=== PATIENT | female | born 1925 | race Caucasian/White ===

== ENCOUNTER 2016-08-19 19:21 | Inpatient (IN) | payer OTHER, BC ==
[2016-08-19] VITALS: BP 114/67; PULSE 70; TEMP 36.4; O2SAT 91; BMI 33.9
[~2016-08-19] VITALS: Ht 147.3 cm; Wt 79.4 kg
[~2016-08-19 19:21] MED LIST: AMLO10CA PO; BUME2TAB3 PO; CALCTAB7 PO; CETI10TA84 PO; CHOL100010 PO; CYAN1TAB PO; DICL1GEL12 TOP; GABA-113 PO; GUAI1TAB69 PO; HYDR-5688 PO; LORA-741 PO; MULT-845 PO; NYST100010 TOP; OMEP20CA9 PO; POLY335019 PO; POLYSOL4 OPB; POTA-327 PO; PROB1TAB16 PO; SENNTAB23 PO; SIMV5TAB2 PO; TRMCR515 TOP; WARF2TAB8 PO; WARF4TAB8 PO
[2016-08-19 19:26] VITALS: Ht 147.3 cm; Wt 79.4 kg
[2016-08-19] MEDS ORDERED: SODIUM CHLORIDE 0.9% 250ML 250 ML IV STA (20:56)
[2016-08-19] MEDS ORDERED: SODIUM CHLORIDE 0.9% 1000ML 1,000 ML IV STA (20:56)
--- NOTE | 2016-08-19 21:14 | EMERGENCY ROOM VISIT NOTE ---
History Report prepared by Jere: Nneka Cruz Under the Supervision of: Dr. Gabby Mcclain M.D. 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 The patient had blood work done this morning and was found to be hyponatremic. She was told to come to the ED for further evaluation. The patient states that she has been feeling dizzy and has had a headache. For the past 2 days her legs have been aching and she has been having difficulty ambulating. She rates her pain as a 4/10 in severity. She notes decreased urinary output today. The patient's son reports that her physician has been having trouble regulating her fluid levels. She denies any shortness of breath or chest pain. 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 Review of Systems See HPI for pertinent positives & negatives. A total of 10 systems reviewed and were otherwise negative. Past Medical & Surgical Medical Problems: (1) Acute on chronic diastolic CHF (congestive heart failure) (2) Appendectomy (3) Atrial fibrillation (4) Benign hypertension (5) C. difficile colitis (6) CHF (congestive heart failure) (7) Chronic diastolic CHF (congestive heart failure) (8) Hyponatremia (9) Hypotension arterial (10) Hysterectomy (11) Orthopedic surgery (12) Osteoarthritis (13) Replacement of total knee joint (14) Tonsillectomy (15) Total replacement of hip Family History Diabetes mellitus Social History Smoking Status: Never Smoker Alcohol Use: none Marital Status: Housing Status: lives alone Occupation Status: retired Current/Historical Medications Scheduled Amlodipine/Benazepril (Lotrel 10MG/20MG), 1 CAPSULE PO DAILY Bumetanide (Bumex), 1 TAB PO BID Calcium Carbonate-Vitamin D W/ (Caltrate 600 Plus), 1 TABLET PO DAILY Cyanocobalamin (Sm Vitamin B12), 2,000 MCG PO DAILY Diclofenac Sodium (Topical) (Voltaren 1% Top Gel), Unknown Dose TOP QID Furosemide (Furosemide), 40 MG PO UD Gabapentin (Neurontin), 300 MG PO BID Metolazone (Metolazone), 5 MG PO Q2D Multiple Vitamins W/ Minerals (Centrum Silver Adult 50+), 1 TAB PO DAILY Nystatin (Topical) (Nystop), Unknown Dose TOP TID Omeprazole (Prilosec), 20 MG PO BID Polyethylene Glycol 3350 (Miralax), 17 GM PO DAILY Polyethylene Glycol-Propylene (Systane), 1 DROP OPB HS Potassium Ext Rel (Klor-Con), 10 MEQ PO BID Probiotic Product (Probiotic), 1 TAB PO DAILY Simvastatin (Zocor), 5 MG PO QPM Triamcinolone Acet (Triamcinolone Acetonide), 1 APPLN TOP BID Warfarin Sod (Jantoven), 1 MG PO 5XWK Scheduled PRN Cetirizine (Zyrtec), 10 MG PO DAILY PRN for itchy water eyes Guaifenesin (Mucinex Maximum Strength), 600 MG PO Q12 PRN for Cough Hydrocodone/Acetaminophen 5MG/325MG ([place] 5MG/325MG), 1 TABLET PO Q6H PRN for Pain Lorazepam (Ativan), 0.5 MG PO HS PRN for Sleep Sennosides-Docusate Sodium (Stool Softener), 1 TAB PO UD PRN for Constipation Allergies Coded Allergies: Morphine (Verified Allergy, Unknown, swelling, 07/23/16) Phenobarbital (Unverified Allergy, Unknown, ITCHINESS, 07/23/16) Physical Exam Vital Signs Date Time Temp Pulse Resp B/P Pulse Ox O2 Delivery O2 Flow Rate FiO2 08/19/16 22:20 70 12 118/62 98 Room Air 08/19/16 21:09 71 08/19/16 20:53 70 18 103/55 94 Room Air 08/19/16 19:26 36.4 68 20 99/55 97 Room Air 08/19/16 00:00 36.4 70 18 114/67 91 Room Air Physical Exam Vital signs reviewed. General: Well-appearing 89 year old female, in no significant distress. HEENT: No scleral icterus, PERRLA, neck supple. Atraumatic. Cardiovascular: Distant, regular rate and rhythm, no extra sounds. Pulmonary: Clear to auscultation bilaterally, normal work of breathing. Abdomen: Soft, nontender, nondistended, positive bowel sounds. Musculoskeletal: Atraumatic, 2+ pitting edema to bilateral lower extremities. Neurologic: Patient awake alert and oriented x 3, full strength in all 4 extremities. Cranial nerves 2 through 12 grossly intact. Skin: Warm, dry, no rash Medical Decision & Procedures Laboratory Results Test 08/19/16 21:05 08/19/16 21:13 08/19/16 21:18 Immature Granulocyte % (Auto) 0.2 % White Blood Count 5.95 K/uL (4.8-10.8) Red Blood Count 3.41 M/uL (4.2-5.4) Hemoglobin 11.0 g/dL (12.0-16.0) Hematocrit 30.2 % (37-47) Mean Corpuscular Volume 88.6 fL (80-100) Mean Corpuscular Hemoglobin 32.3 pg (25-34) Mean Corpuscular Hemoglobin Concent 36.4 g/dl (32-36) Platelet Count 241 K/uL (130-400) Mean Platelet Volume 9.3 fL (7.4-10.4) Neutrophils (%) (Auto) 58.9 % Lymphocytes (%) (Auto) 21.0 % Monocytes (%) (Auto) 19.0 % Eosinophils (%) (Auto) 0.7 % Basophils (%) (Auto) 0.2 % Neutrophils # (Auto) 3.51 K/uL (1.4-6.5) Lymphocytes # (Auto) 1.25 K/uL (1.2-3.4) Monocytes # (Auto) 1.13 K/uL (0.11-0.59) Eosinophils # (Auto) 0.04 K/uL (0-0.5) Basophils # (Auto) 0.01 K/uL (0-0.2) Immature Granulocyte # (Auto) 0.01 K/uL (0.00-0.02) Total Bilirubin 0.7 mg/dl (0.2-1) Direct Bilirubin 0.3 mg/dl (0-0.2) Aspartate Amino Transf (AST/SGOT) 33 U/L (15-37) Alanine Aminotransferase (ALT/SGPT) 25 U/L (12-78) Alkaline Phosphatase 56 U/L (45-117) Total Creatine Kinase 204 U/L (26-192) Creatine Kinase MB 1.4 ng/ml (0.5-3.6) Creatine Kinase MB Ratio 0.7 (0-3.0) Total Protein 6.8 gm/dl (6.4-8.2) Albumin 3.8 gm/dl (3.4-5.0) Bedside Hemoglobin 11.6 g/dl (12.0-16.0) Bedside Hematocrit 34 % (37-47) Bedside Sodium 116 mEq/L (135-144) Bedside Potassium 2.8 mEq/L (3.3-5.0) Bedside Chloride 67 mEq/L (101-112) Bedside Total CO2 33 mEq/l (24-31) Bedside Blood Urea Nitrogen 47 mg/dl (7-18) Bedside Creatinine 1.7 mg/dl (0.6-1.3) Bedside Glucose (other) 127 mg/dl (70-99) Bedside Ionized Calcium (Liat) 1.03 mmol/l (1.12-1.32) Bedside Troponin I 0.010 ng/ml (0-0.045) Laboratory results per my review. Medications Administered Medications (Trade) Dose Ordered Sig/Naren Route Start Time Stop Time Status Last Admin Dose Admin Sodium Chloride 250 ml @ 999 mls/hr Q16M STAT IV 08/19/16 20:56 08/19/16 21:11 DC 08/19/16 20:56 999 MLS/HR Sodium Chloride (Nss 1000ml) 1,000 ml @ 125 mls/hr Q8H STAT IV 08/19/16 20:56 08/20/16 02:23 DC 08/19/16 21:27 125 MLS/HR Potassium Chloride (Kcl 10 Meq / Wtr) 20 meq NOW STAT IV 08/19/16 21:32 08/19/16 21:34 DC 08/19/16 22:13 20 MEQ Potassium Chloride (Klor-Con M10) 20 meq NOW STAT PO 08/19/16 21:32 08/19/16 21:34 DC 08/19/16 22:14 20 MEQ ECG Indication: other (dizziness) Rate (beats per minute): 70 Rhythm: other (ventricular paced rhythm) Findings: no acute ischemic change, other (QTC 552) Comparison ECG Date: 07/23/16 Change: no significant change ED Course 2046: Past medical records reviewed. The patient was evaluated in room C11B. A complete history and physical examination was performed. 2055: NSS 1000 ml @ 125 mls/hr IV, NSS 250 ml @ 999 mls/hr IV 2131: Potassium Chloride 20 meq PO, Potassium Chloride 20 meq IV 2144: I spoke with Dr. Schmid. We discussed the patients results and treatment plan. The patient will be evaluated by the [facility] for further management. 2149: I reassessed the patient at this time. She is feeling better and resting comfortably. I discussed the results and treatment plan with the patient. I answered all pertaining questions that she had. She expressed understanding and verbalized agreement. Medical Decision Differential diagnosis: Etiologies such as metabolic, infection, hypo/hyperglycemia, electrolyte abnormalities, cardiac sources, intracerebral event, toxicologic, neurologic, as well as others were entertained. This pt was evaluated and appeared to be in no distress. IV access was obtained and lab work was drawn. Pt was placed on the photographer finish. IVF were gently initiated with NSS. EKG reveals a paced rhythm. Lab work reveals a Na of 116 on iSTAT. K is 2.8. Pt was repleted with KCL 20 MEq IV and given 20 MEq po. Results were d/w with the hospitalist service for further management. Family and pt are aware of the plan and agree. Consults Time Called: 2143 Consulting Physician: Dr. Schmid Returned Call: [address] Schmid. We discussed the patients results and treatment plan. The patient will be evaluated by the [facility] for further management. Impression Primary Impression: Hyponatremia Additional Impression: Hypokalemia Scribe Attestation The scribe's documentation has been prepared under my direction and personally reviewed by me in its entirety. I confirm that the note above accurately reflects all work, treatment, procedures, and medical decision making performed by me. Departure Information Dispostion Being Evaluated By Hospitalist Referrals Lisa Carter DO (PCP) Patient Instructions A Signature Page, [facility]
[2016-08-19 21:26] LABS: ISTAT CREATININE 1.7 mg/dl (0.6-1.3); ISTAT HEMOGLOBIN 11.6 g/dl (12.0-16.0); ISTAT IONIZED CALCIUM 1.03 mmol/l (1.12-1.32)
[2016-08-19 21:26] LABS: BASO % 0.2 %; BASO ABS # 0.01 K/uL (0-0.2); COMPLETE YES; EOS % 0.7 %; HEMATOCRIT 30.2 % (37-47); IG% 0.2 %; LYMPH ABS # 1.25 K/uL (1.2-3.4); MEAN CELL VOLUME 88.6 fL (80-100); MEAN CORPUSCULAR HEMOGLOBIN 32.3 pg (25-34); MEAN CORPUSCULAR HGB CONC 36.4 g/dl (32-36); MEAN PLATELET VOLUME 9.3 fL (7.4-10.4); NEUT % 58.9 %; PLATELET COUNT 241 K/uL (130-400); RED BLOOD COUNT 3.41 M/uL (4.2-5.4); WHITE BLOOD COUNT 5.95 K/uL (4.8-10.8)
[2016-08-19] MEDS ORDERED: POTASSIUM CHLORIDE 10 MEQ / 100ML WTR IV STA (21:32)
[2016-08-19] MEDS ORDERED: POTASSIUM CHLORIDE 10 MEQ TABCR PO STA (21:32)
[2016-08-19] MEDS ORDERED: ZRX5 PO (21:57)
[2016-08-19] MEDS ORDERED: LSX40 PO (21:57)
[2016-08-19 22:03] LABS: BUN/CREATININE RATIO 38.6 (10-20); CALCIUM 9.1 mg/dl (8.5-10.1); CKMB/CK RATIO 0.7 (0-3.0); CREATININE 1.4 mg/dl (0.60-1.20); PHOSPHORUS 3.4 mg/dl (2.5-4.9); POTASSIUM 2.8 mmol/L (3.5-5.1)
[2016-08-19] MEDS ORDERED: ONDANSETRON INJ 2 MG/ML 2 ML VIAL IV PRN (22:45)
[2016-08-19] MEDS ORDERED: MAGNESIUM HYDROXIDE SUSP 30 ML UDC PO PRN (22:45)
[2016-08-19 22:48] LABS: INR 3.5 (0.9-1.1); PROTHROMBIN TIME (PATIENT) 39.9 SECONDS (9.0-12.0)
--- NOTE | 2016-08-19 23:17 | History and Physical ---
History & Physical Date & Time of Service: Aug 19, 2016 at 22:53 Chief Complaint: Doctor Ref, Abnormal Labs Primary Care Physician: Lisa Carter DO History of Present Illness Source: patient 89 y/o F with Hx AF and chronic diastolic CHF recently admitted for exacerbation. Her MD has encountered some difficulty managing her volume status as she tends to develop significant edema without a high dose of diuretics. She has had recent increases in her diuretic dosing. The pt was feeling lightheaded and weak today and was barely able to ambulate. She attended her physicians office and labs were obtained revealing severe electrolyte abnormalities including hyponatremia, hypokalemia and hypochloremia. She denies SOB, N/V/D or CP. She does describe decreased urine output without dysuria. She is currently prescribed Lasix, Metolazone, Bumex. Past Medical/Surgical History Medical Problems: (1) Chronic atrial fibrillation Status: Resolved (2) Benign hypertension Status: Chronic (3) C. difficile colitis Status: Resolved (4) Pacemaker in Situ Status: Resolved (5) Chronic diastolic CHF - Echo 07/02 reveals a preserved EF and LVH Status: Resolved (6) Osteoarthritis Status: Chronic Surgical History (1) Replacement of total knee joint Status: Resolved (2) Tonsillectomy Status: Resolved (3) Total replacement of hip Status: Resolved 4) Appendectomy 5) Tonsillectomy Family History Diabetes mellitus Social History Smoking Status: Never Smoker Alcohol Use: none Drug Use: none Marital Status: Occupational Status: retired Immunizations History of Influenza Vaccine: N/A History of Tetanus Vaccine?: Yes History of Pneumococcal: Yes Pneumococcal Date: May 28, 2012 History of Hepatitis B Vaccine: No Multi-Drug Resistant Organisms History of MDRO: No Allergies Coded Allergies: Morphine (Verified Allergy, Unknown, swelling, 07/23/16) Phenobarbital (Unverified Allergy, Unknown, ITCHINESS, 07/23/16) Home Medications Scheduled Amlodipine/Benazepril (Lotrel 10MG/20MG), 1 CAPSULE PO DAILY Bumetanide (Bumex), 1 TAB PO BID Calcium Carbonate-Vitamin D W/ (Caltrate 600 Plus), 1 TABLET PO DAILY Cyanocobalamin (Sm Vitamin B12), 2,000 MCG PO DAILY Diclofenac Sodium (Topical) (Voltaren 1% Top Gel), Unknown Dose TOP QID Furosemide (Furosemide), 40 MG PO UD Gabapentin (Neurontin), 300 MG PO BID Metolazone (Metolazone), 5 MG PO Q2D Multiple Vitamins W/ Minerals (Centrum Silver Adult 50+), 1 TAB PO DAILY Nystatin (Topical) (Nystop), Unknown Dose TOP TID Omeprazole (Prilosec), 20 MG PO BID Polyethylene Glycol 3350 (Miralax), 17 GM PO DAILY Polyethylene Glycol-Propylene (Systane), 1 DROP OPB HS Potassium Ext Rel (Klor-Con), 10 MEQ PO BID Probiotic Product (Probiotic), 1 TAB PO DAILY Simvastatin (Zocor), 5 MG PO QPM Triamcinolone Acet (Triamcinolone Acetonide), 1 APPLN TOP BID Warfarin Sod (Jantoven), 1 MG PO 5XWK Scheduled PRN Cetirizine (Zyrtec), 10 MG PO DAILY PRN for itchy water eyes Guaifenesin (Mucinex Maximum Strength), 600 MG PO Q12 PRN for Cough Hydrocodone/Acetaminophen 5MG/325MG ([place] 5MG/325MG), 1 TABLET PO Q6H PRN for Pain Lorazepam (Ativan), 0.5 MG PO HS PRN for Sleep Sennosides-Docusate Sodium (Stool Softener), 1 TAB PO UD PRN for Constipation Review of Systems Constitutional: + fatigue, + weakness, No chills, No fever, No sweats Eyes: No worsening of vision ENT: No hearing loss, No unusual epistaxis Respiratory: No cough, No sputum, No wheezing Cardiovascular: No PND, No chest pain, No orthopnea Abdomen: No nausea, No pain, No vomiting Musculoskeletal: No joint pain, No muscle pain Genitourinary - Female: + problem reported (decreased urine output) Neurologic: + balance problems, + weakness, No memory loss, No paralysis Psychiatric: No depression symptoms Endocrine: No fatigue Hematologic / Lymphatic: No abnormal bleeding/bruising Integumentary: No rash Allergic / Immunologic: No environmental allergies Physical Exam Vital Signs Date Time Temp Pulse Resp B/P Pulse Ox O2 Delivery O2 Flow Rate FiO2 08/19/16 22:20 70 12 118/62 98 Room Air 08/19/16 21:09 71 08/19/16 20:53 70 18 103/55 94 Room Air 08/19/16 19:26 36.4 68 20 99/55 97 Room Air General Appearance: WD/WN, no apparent distress, + pertinent finding (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 , 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) Head: normocephalic Eyes: normal inspection, PERRL, EOMI ENT: normal ENT inspection, pharynx normal Neck: supple, no JVD Respiratory/Chest: chest non-tender, lungs clear, normal breath sounds, no respiratory distress, no accessory muscle use Cardiovascular: regular rate, rhythm, no edema, no gallop, normal peripheral pulses Abdomen/GI: normal bowel sounds, non tender, soft Back: normal inspection, no CVA tenderness Extremities/Musculoskelatal: normal inspection, no calf tenderness, normal capillary refill, + pedal edema Neurologic/Psych: manager special events II-XII nml as tested, no motor/sensory deficits, alert, normal mood/affect, normal reflexes, oriented x 3, + pertinent finding ( Globally weak without focal deficits) Skin: normal color, warm/dry, no rash Diagnostics Laboratory Results Results Past 24 Hours Test 08/19/16 21:05 08/19/16 21:13 08/19/16 21:18 Range/Units White Blood Count 5.95 4.8-10.8 K/uL Red Blood Count 3.41 4.2-5.4 M/uL Hemoglobin 11.0 12.0-16.0 g/dL Hematocrit 30.2 37-47 % Mean Corpuscular Volume 88.6 80-100 fL Mean Corpuscular Hemoglobin 32.3 25-34 pg Mean Corpuscular Hemoglobin Concent 36.4 32-36 g/dl Platelet Count 241 130-400 K/uL Mean Platelet Volume 9.3 7.4-10.4 fL Neutrophils (%) (Auto) 58.9 % Lymphocytes (%) (Auto) 21.0 % Monocytes (%) (Auto) 19.0 % Eosinophils (%) (Auto) 0.7 % Basophils (%) (Auto) 0.2 % Neutrophils # (Auto) 3.51 1.4-6.5 K/uL Lymphocytes # (Auto) 1.25 1.2-3.4 K/uL Monocytes # (Auto) 1.13 0.11-0.59 K/uL Eosinophils # (Auto) 0.04 0-0.5 K/uL Basophils # (Auto) 0.01 0-0.2 K/uL RDW Standard Deviation 40.6 36.4-46.3 fL RDW Coefficient of Variation 12.6 11.5-14.5 % Immature Granulocyte % (Auto) 0.2 % Immature Granulocyte # (Auto) 0.01 0.00-0.02 K/uL Prothrombin Time 39.9 9.0-12.0 SECONDS Prothromb Time International Ratio 3.5 0.9-1.1 Sodium Level 118 136-145 mmol/L Potassium Level 2.8 3.5-5.1 mmol/L Chloride Level 70 98-107 mmol/L Carbon Dioxide Level 34 21-32 mmol/L Anion Gap 13.0 20.0 16-25 mmol/L Blood Urea Nitrogen 54 7-18 mg/dl Creatinine 1.40 0.60-1.20 mg/dl Est Creatinine Clear Calc Drug Dose 21.9 ml/min Estimated GFR () 38.5 Estimated GFR (Non- 33.2 BUN/Creatinine Ratio 38.6 10-20 Random Glucose 120 70-99 mg/dl Calcium Level 9.1 8.5-10.1 mg/dl Phosphorus Level 3.4 2.5-4.9 mg/dl Magnesium Level 2.0 1.8-2.4 mg/dl Total Bilirubin 0.7 0.2-1 mg/dl Direct Bilirubin 0.3 0-0.2 mg/dl Aspartate Amino Transf (AST/SGOT) 33 15-37 U/L Alanine Aminotransferase (ALT/SGPT) 25 12-78 U/L Alkaline Phosphatase 56 45-117 U/L Total Creatine Kinase 204 26-192 U/L Creatine Kinase MB 1.4 0.5-3.6 ng/ml Creatine Kinase MB Ratio 0.7 0-3.0 Total Protein 6.8 6.4-8.2 gm/dl Albumin 3.8 3.4-5.0 gm/dl Bedside Hemoglobin 11.6 12.0-16.0 g/dl Bedside Hematocrit 34 37-47 % Bedside Sodium 116 135-144 mEq/L Bedside Potassium 2.8 3.3-5.0 mEq/L Bedside Chloride 67 101-112 mEq/L Bedside Total CO2 33 24-31 mEq/l Bedside Blood Urea Nitrogen 47 7-18 mg/dl Bedside Creatinine 1.7 0.6-1.3 mg/dl Bedside Glucose (other) 127 70-99 mg/dl Bedside Ionized Calcium (Liat) 1.03 1.12-1.32 mmol/l Bedside Troponin I 0.010 0-0.045 ng/ml EKG Paced rhythm Impression Assessment and Plan 89 y/o F with Hx AF and chronic diastolic CHF recently admitted for exacerbation - has had some difficulty managing her volume status without a high dose of diuretics. She has had recent increases in her diuretic dosing - was feeling lightheaded and weak today and was barely able to ambulate - labs were obtained by her MD revealing severe electrolyte abnormalities including hyponatremia, hypokalemia and hypochloremia. 1) Electrolyte abnormalities - severe dehydration - resulting from overdiuresis - Pts initial Na = 118 and K = 2.8 - Chloride is low as well - She will be hydrated carefully as she has a tendency to volume overload - additional K has been provided - we will recheck a BMP Q2H and make rate adjustments as needed to avoid rapid correction - she will be monitored on telemetry. Pts Diuretics and ARB have been held pending AM reevaluation 2) Diastolic CHF - recent admit for exacerbation / pulmonary edema - will require volume status monitoring and continuous oximetry - Diuretics can be provided PRN only 3) HTN - will cont Norvasc - ARB held 4) AF - paced rhythm - INR pending - cont Coumadin contingent on result [place] time for this admit including chart review - review of EKG, labs, recent records - discussion with ER MD and pt 40 min DNR/DNI - on Coumadin - no additional prophylaxis VTE Prophylaxis VTE Risk Assessment Done? Y/N: Yes Risk Level: Moderate Given or contraindicated: Warfarin (Coumadin)
[2016-08-20] VITALS (8 sets, daily range): BP systolic 98–133; BP diastolic 62–74; PULSE 70–71; TEMP 36.5–36.7; O2SAT 90–100
[2016-08-20 01:18] LABS: URINE APPEARANCE CLEAR (CLEAR); URINE BILIRUBIN NEG (NEG); URINE COLOR YELLOW; URINE EPITHELIAL CELL AUTO >30 /lpf (0-5); URINE NITRITE NEG (NEG); URINE PH 5.5 (4.5-7.5); UROBILINOGEN NEG (NEG)
[2016-08-20 01:23] LABS: MANUAL MICROSCOPIC REQUIRED? NO; REVIEW REQ? YES
[2016-08-20] MEDS: HYDROCODONE/ACETAMOPHEN 5/325MG TAB PO PRN ×2 (01:24→10:40)
[2016-08-20 01:36] LABS: ZZUR CULT IF INDIC CLEAN CATCH YES
[2016-08-20] MEDS ORDERED: NSS + 20MEQ KCL 1000ML 1,000 ML IV SCH (02:30)
[2016-08-20 02:46] LABS: BUN/CREATININE RATIO 42.6 (10-20); CALCIUM 8.7 mg/dl (8.5-10.1); CREATININE 1.1 mg/dl (0.60-1.20); POTASSIUM 2.9 mmol/L (3.5-5.1)
[2016-08-20 04:32] LABS: HEMATOCRIT 26.9 % (37-47); MEAN CELL VOLUME 89.7 fL (80-100); MEAN CORPUSCULAR HEMOGLOBIN 32.3 pg (25-34); MEAN CORPUSCULAR HGB CONC 36.1 g/dl (32-36); MEAN PLATELET VOLUME 9.4 fL (7.4-10.4); PLATELET COUNT 213 K/uL (130-400); WHITE BLOOD COUNT 5.83 K/uL (4.8-10.8)
[2016-08-20 04:56] LABS: BUN/CREATININE RATIO 40.8 (10-20); CALCIUM 8.5 mg/dl (8.5-10.1); CREATININE 1.1 mg/dl (0.60-1.20); PHOSPHORUS 2.7 mg/dl (2.5-4.9)
[2016-08-20] MEDS: PANTOprazole SOD 40 MG TAB PO SCH ×2 (07:59→21:14)
[2016-08-20] MEDS: GABAPENTIN 300 MG CAP PO SCH ×2 (08:00→21:13)
[2016-08-20] MEDS: CETIRIZINE HCL 10 MG TAB PO PRN (08:00)
[2016-08-20] MEDS: TRIAMCINOLONE ACET 0.5% CR 15 GM TUBE EXT SCH ×3 (08:00→21:22)
[2016-08-20] MEDS: LACTOBACILLUS ACIDOPHILUS (FLORANEX) TAB PO SCH (08:01)
[2016-08-20] MEDS: CALCIUM 600MG + VIT D 400 IU TAB PO SCH (08:02)
[2016-08-20] MEDS: CYANOCOBALAMIN 500 MCG TAB (VIT B-12) PO SCH (08:02)
[2016-08-20] MEDS: POLYETHYLENE (MIRALAX) 17 GM PACK PO PRN (08:09)
--- NOTE | 2016-08-20 08:54 | Clinical Documentation Query ---
QUERY 1 OF [address] FITCH, In your clinical opinion is this patient being managed for: ( x ) Acute kidney failure, POA, on CKD stage III ( ) Other explanation of clinical findings (Please Explain) ( ) Unable to determine (Please Define) ( ) Need to Discuss ( ) Not Agree The medical record reflects the following clinical findings, treatment, and risk factors. Clinical Indicators: 89 yo female presenting with electrolyte abnormalities. BUN 54, Cr 1.40. Review of EMR showed most recent Cr baseline 0.78-0.94 since Jun 2016. GFR range over the past year has been 33.2-59.9 Treatment: 250 cc NSS bolus then continuous fluids, q 2 hr PRP's, nephrology consult, I/O, hold diuretics and ARB Risk Factors: age, dehydration, hx HTN and chronic diastolic CHF, recent increased diuretic doses Acute Kidney Injury is defined as any of the following: o Increase in SCr by (>/=) 0.3 mg/dl within 48 hours; or o Increase in SCr to (>/=)1.5 times baseline, which is known or presumed to have occurred within the prior 7 days; or o Urine volume <0.5 ml/kg/h for 6 hours. Chronic Kidney Disease (CKD), stages 1-5. Documenting the stage of CKD will improve data integrity and will help clarify vague terms such as "renal insufficiency" or "chronic renal failure." The stages of CKD according to the [employer] are as follows: Stage I: GFR >90 Stage II: GFR 60-89 Stage III: GFR 30-59 Stage IV: GFR 15-29 Stage V: GFR <15 QUERY 2 OF 2 In your clinical opinion is this patient being managed for: ( x ) Hyponatremia, hypokalemia, hypochloremia ( ) Other explanation of clinical findings (Please Explain) ( ) Unable to determine (Please Define) ( ) Need to Discuss ( ) Not Agree The medical record reflects the following clinical findings, treatment, and risk factors. Clinical Indicators: H/P indicates pt with electrolyte abnormalities--"initial Na =118, K = 2.8, chloride low as well" Treatment: IV fluid bolus then continuous, q 2 hr BMP's, nephrology consult, I/O, hold diuretics and ARB Risk Factors: age, recent diuretic dose increase, dehydration Please clarify and document your clinical opinion in the progress notes and discharge summary. Terms such as "probable", "suspected", "likely", "questionable", "possible", or "still to be ruled out" are acceptable. IF IN AGREEMENT, YOU MUST DOCUMENT ABOVE DIAGNOSTIC STATEMENT IN DAILY PROGRESS NOTES AND DISCHARGE SUMMARY. This document is not part of the patient's record. Thank You, Alyssa Huber RN [phone]
[2016-08-20 09:06] LABS: INR 2.8 (0.9-1.1); PROTHROMBIN TIME (PATIENT) 31.5 SECONDS (9.0-12.0)
[2016-08-20 09:50] LABS: BUN/CREATININE RATIO 41.5 (10-20); CALCIUM 9.1 mg/dl (8.5-10.1); CREATININE 1.1 mg/dl (0.60-1.20); POTASSIUM 3.1 mmol/L (3.5-5.1)
--- NOTE | 2016-08-20 11:36 | Nephrology Consultation ---
Nephrology Consultation Date & Providers Date of Consultation: Aug 20, 2016. Primary Care Provider: Lisa Carter DO Referring Provider: Reason for Consultation Evaluation of hyponatremia History of Present Illness Ms. Akhtar is an 89 year old white female who is seen at the request of Dr. Liz for evaluation of hyponatremia. Medical records in the hospital EMR were reviewed today and are summarized as follows: The patient has a history of chronic atrial fibrillation, complete heart block requiring dual chamber pacemaker 2012, moderate MR, chronic diastolic heart failure, chronic venous insufficiency, GERD, OA, C. Difficile colitis and CKD w/ baseline creatinine 1.0 (EGFR 51 cc/min). Ms. Akhtar was last hospitalized 07/23 - 07/25 with diastolic CHF. She improved with IV diuretic therapy. Echocardiogram (07/02) revealed LVEF 60%, biatrial dilation, PASP 40 - 50 mm Hg. The patient was discharged to home on oral bumetanide 2 mg po BID and metolazone 5 mg po every 2 days. Since discharge from the hospital Ms. Akhtar reports that she has experienced progressive weight loss. Her lower extremity edema has markedly improved and she has experienced brisk urine output in response to her new diuretic regimen. Over the last 2 days she has become progressively weak. She has had orthostatic symptoms and has suffered from bilateral lower extremity muscle cramping. She presented to the ED where she was found to be hyponatremic with serum sodium 119 mg/dl. Past Medical/Surgical History Medical: # Chronic atrial fibrillation # Complete heart block requiring dual chamber pacemaker 2012 # Moderate MR # Chronic diastolic heart failure # Chronic lower extremity venous insufficiency # GERD # OA # h/o clostridium difficile colitis # CKD w/ baseline creatinine 1.0 (EGFR 51 cc/min) Surgical: # Appendectomy # Hysterectomy # R KACI # R TKA # Tonsillectomy Allergies Coded Allergies: Morphine (Verified Allergy, Unknown, swelling, 07/23/16) Phenobarbital (Unverified Allergy, Unknown, ITCHINESS, 07/23/16) Inpatient Medications Current Inpatient Medications Medications (Trade) Dose Ordered Sig/Naren Route Start Time Stop Time Status Last Admin Dose Admin Potassium Chloride/Sodium Chloride (Nss + 20meq KCl 1000ml) 1,000 ml @ 100 mls/hr Q10H IV 08/20/16 02:30 08/20/16 22:29 08/20/16 03:28 100 MLS/HR Calcium/Vitamin D (Caltrate Plus Tab) 1 tab DAILY PO 08/20/16 09:00 09/19/16 08:59 08/20/16 08:02 1 TAB Cetirizine HCl (zyrTEC TAB) 10 mg DAILY PRN PO 08/19/16 22:45 09/18/16 22:44 08/20/16 08:00 10 MG Cyanocobalamin (Vitamin B-12 Tab) 2,000 mcg DAILY PO 08/20/16 09:00 09/19/16 08:59 08/20/16 08:02 2,000 MCG Gabapentin (Neurontin Cap) 300 mg BID PO 08/20/16 09:00 09/19/16 08:59 08/20/16 08:00 300 MG Acetaminophen/ Hydrocodone Bitart ([place] 5/325 Tab) 1 tab Q6H PRN PO 08/19/16 22:45 09/02/16 22:44 08/20/16 10:40 1 TAB Lorazepam (Ativan Tab) 0.5 mg HS PRN PO 08/19/16 22:45 09/18/16 22:44 Simvastatin (Zocor Tab) 5 mg QPM PO 08/20/16 21:00 09/19/16 20:59 Triamcinolone Acetonide (Kenalog 0.5% Crm) 1 appln BID EXT 08/20/16 09:00 09/19/16 08:59 08/20/16 08:00 1 APPLN Warfarin Sodium (Coumadin Tab) 1 mg SuWeThFrSa@1600 PO 08/20/16 16:00 09/19/16 15:59 Pantoprazole Sodium (Protonix Tab) 40 mg BID PO 08/20/16 09:00 09/19/16 08:59 08/20/16 07:59 40 MG Artificial Tears (Artificial Tears) 1 drops HS OPB 08/20/16 21:00 09/19/16 20:59 Lactobacillus Acidophilus (Floranex Tab) 4 tab DAILY PO 08/20/16 09:00 09/19/16 08:59 08/20/16 08:01 4 TAB Acetaminophen (Tylenol Tab) 650 mg Q4H PRN PO 08/19/16 22:45 09/18/16 22:44 Magnesium Hydroxide (Milk Of Magnesia Susp) 30 ml Q12H PRN PO 08/19/16 22:45 09/18/16 22:44 Ondansetron HCl (Zofran Inj) 4 mg Q6H PRN IV 08/19/16 22:45 09/18/16 22:44 Polyethylene (Miralax Powder Packet) 17 gm DAILY PRN PO 08/19/16 22:45 09/18/16 22:44 08/20/16 08:09 17 GM Family History Diabetes mellitus Negative for CKD/ESRD Social History Smoking Status: Never Smoker Alcohol Use: none Drug Use: none Marital Status: Occupation: retired . Retired. Never a smoker. Denies alcohol use. Review of Systems Constitutional: + fatigue, No fever Respiratory: No shortness of breath Cardiovascular: + problem reported (+ orthostasis), No chest pain Abdomen: No pain Musculoskeletal: + muscle pain (upper leg pain and weakness) A complete review of systems was performed. Pertinent positives are noted above. All other systems are negative. Physical Exam Date Time Temp Pulse Resp B/P Pulse Ox O2 Delivery O2 Flow Rate FiO2 08/20/16 08:37 36.6 70 20 102/65 90 Nasal Cannula 2.0 08/20/16 08:00 90 Nasal Cannula 2.0 08/20/16 05:13 36.5 71 18 99/62 90 Room Air 08/20/16 04:00 Room Air 08/19/16 23:40 70 16 108/55 93 08/19/16 22:20 70 12 118/62 98 Room Air 08/19/16 21:09 71 08/19/16 20:53 70 18 103/55 94 Room Air 08/19/16 19:26 36.4 68 20 99/55 97 Room Air General Appearance: no apparent distress Head: normocephalic, atraumatic Eyes: PERRL, EOMI ENT: + pertinent finding (dry mucous membranes) Neck: no adenopathy Respiratory/Chest: lungs clear, no respiratory distress Cardiovascular: + tachycardia Abdomen/GI: normal bowel sounds, non tender, soft Back: no CVA tenderness Extremities/Musculoskelatal: + pertinent finding (pretibial hemosiderin staining. 1+ pretibial pitting edema) Neurologic/Psych: alert, oriented x 3 (follows commands appropriately. No focal neurologic deficits) Skin: warm/dry, + pertinent finding (poor skin turgor involving the arms) Lymphatic: no adenopathy Laboratory Results Last 24 Hours Test 08/19/16 21:05 08/19/16 21:13 08/19/16 21:18 08/20/16 01:00 White Blood Count 5.95 K/uL Red Blood Count 3.41 M/uL Hemoglobin 11.0 g/dL Hematocrit 30.2 % Mean Corpuscular Volume 88.6 fL Mean Corpuscular Hemoglobin 32.3 pg Mean Corpuscular Hemoglobin Concent 36.4 g/dl Platelet Count 241 K/uL Mean Platelet Volume 9.3 fL Neutrophils (%) (Auto) 58.9 % Lymphocytes (%) (Auto) 21.0 % Monocytes (%) (Auto) 19.0 % Eosinophils (%) (Auto) 0.7 % Basophils (%) (Auto) 0.2 % Neutrophils # (Auto) 3.51 K/uL Lymphocytes # (Auto) 1.25 K/uL Monocytes # (Auto) 1.13 K/uL Eosinophils # (Auto) 0.04 K/uL Basophils # (Auto) 0.01 K/uL RDW Standard Deviation 40.6 fL RDW Coefficient of Variation 12.6 % Immature Granulocyte % (Auto) 0.2 % Immature Granulocyte # (Auto) 0.01 K/uL Prothrombin Time 39.9 SECONDS Prothromb Time International Ratio 3.5 Sodium Level 118 mmol/L Potassium Level 2.8 mmol/L Chloride Level 70 mmol/L Carbon Dioxide Level 34 mmol/L Anion Gap 13.0 mmol/L 20.0 mmol/L Blood Urea Nitrogen 54 mg/dl Creatinine 1.40 mg/dl Est Creatinine Clear Calc Drug Dose 21.9 ml/min Estimated GFR () 38.5 Estimated GFR (Non- 33.2 BUN/Creatinine Ratio 38.6 Random Glucose 120 mg/dl Calcium Level 9.1 mg/dl Phosphorus Level 3.4 mg/dl Magnesium Level 2.0 mg/dl Total Bilirubin 0.7 mg/dl Direct Bilirubin 0.3 mg/dl Aspartate Amino Transf (AST/SGOT) 33 U/L Alanine Aminotransferase (ALT/SGPT) 25 U/L Alkaline Phosphatase 56 U/L Total Creatine Kinase 204 U/L Creatine Kinase MB 1.4 ng/ml Creatine Kinase MB Ratio 0.7 Total Protein 6.8 gm/dl Albumin 3.8 gm/dl Bedside Hemoglobin 11.6 g/dl Bedside Hematocrit 34 % Bedside Sodium 116 mEq/L Bedside Potassium 2.8 mEq/L Bedside Chloride 67 mEq/L Bedside Total CO2 33 mEq/l Bedside Blood Urea Nitrogen 47 mg/dl Bedside Creatinine 1.7 mg/dl Bedside Glucose (other) 127 mg/dl Bedside Ionized Calcium (Liat) 1.03 mmol/l Bedside Troponin I 0.010 ng/ml Urine Color YELLOW Urine Appearance CLEAR Urine pH 5.5 Urine Specific [place] 1.010 Urine Protein NEG Urine Glucose (UA) NEG Urine Ketones NEG Urine Occult Blood NEG Urine Nitrite NEG Urine Bilirubin NEG Urine Urobilinogen NEG Urine Leukocyte Esterase TRACE Urine WBC (Auto) 10-30 /hpf Urine RBC (Auto) 0-4 /hpf Urine Hyaline Casts (Auto) 5-10 /lpf Urine Epithelial Cells (Auto) >30 /lpf Urine Bacteria (Auto) 1+ Urine Crystals TALC Test 08/20/16 02:00 08/20/16 04:21 08/20/16 08:41 Sodium Level 120 mmol/L 119 mmol/L 118 mmol/L Potassium Level 2.9 mmol/L 3.0 mmol/L 3.1 mmol/L Chloride Level 74 mmol/L 76 mmol/L 75 mmol/L Carbon Dioxide Level 33 mmol/L 31 mmol/L 32 mmol/L Anion Gap 13.0 mmol/L 12.0 mmol/L 11.0 mmol/L Blood Urea Nitrogen 47 mg/dl 45 mg/dl 46 mg/dl Creatinine 1.10 mg/dl 1.10 mg/dl 1.10 mg/dl Est Creatinine Clear Calc Drug Dose 27.9 ml/min 27.9 ml/min 27.9 ml/min Estimated GFR () 51.5 51.5 51.5 Estimated GFR (Non- 44.5 44.5 44.5 BUN/Creatinine Ratio 42.6 40.8 41.5 Random Glucose 111 mg/dl 111 mg/dl 152 mg/dl Calcium Level 8.7 mg/dl 8.5 mg/dl 9.1 mg/dl White Blood Count 5.83 K/uL Red Blood Count 3.00 M/uL Hemoglobin 9.7 g/dL Hematocrit 26.9 % Mean Corpuscular Volume 89.7 fL Mean Corpuscular Hemoglobin 32.3 pg Mean Corpuscular Hemoglobin Concent 36.1 g/dl RDW Standard Deviation 41.8 fL RDW Coefficient of Variation 12.7 % Platelet Count 213 K/uL Mean Platelet Volume 9.4 fL Phosphorus Level 2.7 mg/dl Magnesium Level 2.0 mg/dl Prothrombin Time 31.5 SECONDS Prothromb Time International Ratio 2.8 Impression (1) Hyponatremia (2) Dehydration (3) Hypotension arterial (4) Atrial fibrillation (5) Chronic diastolic CHF (congestive heart failure) (6) Generalized weakness Patient admitted to the hospital for evaluation of hyponatremia. She has chronic diastolic CHF. Recently her diuretic regimen was adjusted and she was started on a thiazide in addition to her loop diuretic. Patient has experienced a brisk diuresis. Her lower extremity edema has markedly improved but she has become progressively weak. She reports orthostasis and lower extremity muscle cramping. Serum sodium has dropped to 119 mg/dl. Urine osmolality remains relatively low. Patient is clinically volume contracted. She has hypoosmolar hyponatremia due to thiazide diuretic use and clinical dehydration. Patient has no neurologic symptoms other than weakness. PMH - chronic atrial fibrillation, complete heart block requiring dual chamber pacemaker 2012, moderate MR, chronic diastolic heart failure, chronic venous insufficiency, GERD, OA, C. Difficile colitis and CKD w/ baseline creatinine 1.0 (EGFR 51 cc/min) Recommendations HYPONATREMIA: -- Patient appears clinically volume contracted. She has relative hypotension -- Discontinue loop and thiazide diuretic -- Will ask RN to obtain orthostatic vitals -- Will order urine osmolality -- Start IV hydration w/ 0.9 NS at 150 cc/min -- Monitor serial PRP. Will check TSH -- Patient has no neurologic changes at this time. No acute indication for 3% NaCl HYPOTENSION: -- Will provide hydration DIASTOLIC CHF: -- Avoid thiazide diuretic in the future -- May benefit from BID loop diuretic therapy as outpatient once serum sodium has normalized CHRONIC KIDNEY DISEASE: -- Baseline creatinine has been 1.0 w/ EGFR 51 cc/min -- Urine sediment is acellular. Urinary protein is negative by dipstick -- Will obtain renal US only if kidney function declines
[2016-08-20] MEDS ORDERED: SODIUM CHLORIDE 0.9% 1000ML 1,000 ML IV SCH (12:00)
[2016-08-20] MEDS ORDERED: NURSING VERBAL MED ORDER ONE (12:15)
[2016-08-20] MEDS ORDERED: POTASSIUM CHLORIDE 10 MEQ TABCR PO STA ×2 (12:34→17:44)
--- NOTE | 2016-08-20 12:54 | Hospitalist Progress Note ---
Hospitalist Progress Note Date of Service Aug 20, 2016. Subjective Pt evaluation today including: conversation w/ patient, physical exam, chart review, lab review, review of studies, review of inpatient medication list PO Intake: isidoro po Pt feeling ok, is eating lunch, no CP, no SOB, says her leg swelling is much improved since taking Bumex and metolazone. Constitutional: No fever Respiratory: No shortness of breath Cardiovascular: No chest pain Abdomen: No nausea, No pain Skin: No rash All Other Systems: Reviewed and Negative Objective Vital Signs Date Time Temp Pulse Resp B/P Pulse Ox O2 Delivery O2 Flow Rate FiO2 08/20/16 08:37 36.6 70 20 102/65 90 Nasal Cannula 2.0 08/20/16 08:00 90 Nasal Cannula 2.0 08/20/16 05:13 36.5 71 18 99/62 90 Room Air 08/20/16 04:00 Room Air 08/19/16 23:40 70 16 108/55 93 08/19/16 22:20 70 12 118/62 98 Room Air 08/19/16 21:09 71 08/19/16 20:53 70 18 103/55 94 Room Air 08/19/16 19:26 36.4 68 20 99/55 97 Room Air Physical Exam General Appearance: WD/WN, no apparent distress Eyes: normal inspection, sclerae normal ENT: hearing grossly normal Neck: supple, trachea midline, + pertinent finding (small scar anterior right side of neck medial clavicle) Respiratory/Chest: no respiratory distress, no accessory muscle use, + crackles (at bases) Cardiovascular: regular rate, rhythm, no gallop, no murmur, + pertinent finding (2+ pitting edema legs to knees bilat) Abdomen: normal bowel sounds, non tender, soft (and obese) Extremities: no calf tenderness Neurologic/Psychiatric: no motor/sensory deficits, alert, normal mood/affect, oriented x 3 Skin: normal color, warm/dry, no rash Laboratory Results Last 24 Hours Test 08/19/16 21:05 08/19/16 21:13 08/19/16 21:18 08/20/16 01:00 White Blood Count 5.95 K/uL Red Blood Count 3.41 M/uL Hemoglobin 11.0 g/dL Hematocrit 30.2 % Mean Corpuscular Volume 88.6 fL Mean Corpuscular Hemoglobin 32.3 pg Mean Corpuscular Hemoglobin Concent 36.4 g/dl Platelet Count 241 K/uL Mean Platelet Volume 9.3 fL Neutrophils (%) (Auto) 58.9 % Lymphocytes (%) (Auto) 21.0 % Monocytes (%) (Auto) 19.0 % Eosinophils (%) (Auto) 0.7 % Basophils (%) (Auto) 0.2 % Neutrophils # (Auto) 3.51 K/uL Lymphocytes # (Auto) 1.25 K/uL Monocytes # (Auto) 1.13 K/uL Eosinophils # (Auto) 0.04 K/uL Basophils # (Auto) 0.01 K/uL RDW Standard Deviation 40.6 fL RDW Coefficient of Variation 12.6 % Immature Granulocyte % (Auto) 0.2 % Immature Granulocyte # (Auto) 0.01 K/uL Prothrombin Time 39.9 SECONDS Prothromb Time International Ratio 3.5 Sodium Level 118 mmol/L Potassium Level 2.8 mmol/L Chloride Level 70 mmol/L Carbon Dioxide Level 34 mmol/L Anion Gap 13.0 mmol/L 20.0 mmol/L Blood Urea Nitrogen 54 mg/dl Creatinine 1.40 mg/dl Est Creatinine Clear Calc Drug Dose 21.9 ml/min Estimated GFR () 38.5 Estimated GFR (Non- 33.2 BUN/Creatinine Ratio 38.6 Random Glucose 120 mg/dl Calcium Level 9.1 mg/dl Phosphorus Level 3.4 mg/dl Magnesium Level 2.0 mg/dl Total Bilirubin 0.7 mg/dl Direct Bilirubin 0.3 mg/dl Aspartate Amino Transf (AST/SGOT) 33 U/L Alanine Aminotransferase (ALT/SGPT) 25 U/L Alkaline Phosphatase 56 U/L Total Creatine Kinase 204 U/L Creatine Kinase MB 1.4 ng/ml Creatine Kinase MB Ratio 0.7 Total Protein 6.8 gm/dl Albumin 3.8 gm/dl Bedside Hemoglobin 11.6 g/dl Bedside Hematocrit 34 % Bedside Sodium 116 mEq/L Bedside Potassium 2.8 mEq/L Bedside Chloride 67 mEq/L Bedside Total CO2 33 mEq/l Bedside Blood Urea Nitrogen 47 mg/dl Bedside Creatinine 1.7 mg/dl Bedside Glucose (other) 127 mg/dl Bedside Ionized Calcium (Liat) 1.03 mmol/l Bedside Troponin I 0.010 ng/ml Urine Color YELLOW Urine Appearance CLEAR Urine pH 5.5 Urine Specific [place] 1.010 Urine Protein NEG Urine Glucose (UA) NEG Urine Ketones NEG Urine Occult Blood NEG Urine Nitrite NEG Urine Bilirubin NEG Urine Urobilinogen NEG Urine Leukocyte Esterase TRACE Urine WBC (Auto) 10-30 /hpf Urine RBC (Auto) 0-4 /hpf Urine Hyaline Casts (Auto) 5-10 /lpf Urine Epithelial Cells (Auto) >30 /lpf Urine Bacteria (Auto) 1+ Urine Crystals TALC Test 08/20/16 02:00 08/20/16 04:21 08/20/16 08:41 08/20/16 11:30 Sodium Level 120 mmol/L 119 mmol/L 118 mmol/L Potassium Level 2.9 mmol/L 3.0 mmol/L 3.1 mmol/L Chloride Level 74 mmol/L 76 mmol/L 75 mmol/L Carbon Dioxide Level 33 mmol/L 31 mmol/L 32 mmol/L Anion Gap 13.0 mmol/L 12.0 mmol/L 11.0 mmol/L Blood Urea Nitrogen 47 mg/dl 45 mg/dl 46 mg/dl Creatinine 1.10 mg/dl 1.10 mg/dl 1.10 mg/dl Est Creatinine Clear Calc Drug Dose 27.9 ml/min 27.9 ml/min 27.9 ml/min Estimated GFR () 51.5 51.5 51.5 Estimated GFR (Non- 44.5 44.5 44.5 BUN/Creatinine Ratio 42.6 40.8 41.5 Random Glucose 111 mg/dl 111 mg/dl 152 mg/dl Calcium Level 8.7 mg/dl 8.5 mg/dl 9.1 mg/dl White Blood Count 5.83 K/uL Red Blood Count 3.00 M/uL Hemoglobin 9.7 g/dL Hematocrit 26.9 % Mean Corpuscular Volume 89.7 fL Mean Corpuscular Hemoglobin 32.3 pg Mean Corpuscular Hemoglobin Concent 36.1 g/dl RDW Standard Deviation 41.8 fL RDW Coefficient of Variation 12.7 % Platelet Count 213 K/uL Mean Platelet Volume 9.4 fL Phosphorus Level 2.7 mg/dl Magnesium Level 2.0 mg/dl Prothrombin Time 31.5 SECONDS Prothromb Time International Ratio 2.8 Assessment and Plan 89 y/o F with Hx chronic AF, pacer in situ for complete heart block, HTN, mild , Pulm HTN, chronic diastolic CHF recently admitted for exacerbation, Sarcoidosis (1972 dxd with lymph node biopsy through thoracotomy?), GERD, OA, CKD stage IIIA, - has had some difficulty managing her volume status without a high dose of diuretics. She has had recent increases in her diuretic dosing: last week switched from lasix to bumex, then added metolazone every other day which really helped her leg swelling however she started feeling lightheaded and weak 3 days ago and was barely able to ambulate - labs were obtained by her MD on day of admission revealing severe electrolyte abnormalities including hyponatremia, hypokalemia and hypochloremia. 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 Still hypervolemic on exam but reportedly improved since last week clinically - She will be hydrated carefully as she has a tendency to volume overload -replace K+ -continue NaCl and Nephrology consulted, increased rate to 150ml/hr -f/u urine studies, checking TSH -check q4h BMPs and make rate adjustments as needed to avoid rapid correction - she will be monitored on telemetry. -Diuretics and ACEI have been held -Cardiology consult to her primary Dr. Huber 2) Chronic Diastolic CHF, Pulm HTN, Pacer in situ, h/o Sarcoidosis (cardiac sarcoid?), calcified MV, mild - recent admit for exacerbation / pulmonary edema - will require volume status monitoring and continuous oximetry - Diuretics can be provided PRN only -daily weights, I/Os -consult Cardiology as above for further management 3) HTN -holding amlodipine, ACEI 4) Chronic AF - paced rhythm - INR 3.5 on admission, now 2.8 - cont Coumadin at lower dose Proph: coumadin, PPI Dispo- DNR
[2016-08-20 16:07] LABS: BUN/CREATININE RATIO 38.1 (10-20); CALCIUM 8.7 mg/dl (8.5-10.1); CREATININE 1.2 mg/dl (0.60-1.20); POTASSIUM 3.3 mmol/L (3.5-5.1)
[2016-08-20] MEDS: WARFARIN SOD 1 MG TAB PO SCH (16:12)
[2016-08-20 16:20] LABS: THYROID STIMULATING HORMONE 2.25 uIu/ml (0.300-4.500)
[2016-08-20 19:54] LABS: BUN/CREATININE RATIO 35.9 (10-20); CALCIUM 8.4 mg/dl (8.5-10.1); CREATININE 1.3 mg/dl (0.60-1.20)
[2016-08-20] MEDS: ACETAMINOPHEN 325 MG TAB PO PRN (21:12)
[2016-08-20] MEDS: ARTIFICIAL TEARS OP SOLN OPB SCH ×2 (21:14)
[2016-08-20] MEDS: SIMVASTATIN 5 MG TAB PO SCH (21:16)
[2016-08-20] MEDS: SODIUM CHLORIDE 0.9% 1000ML 1,000 ML IV SCH (22:38)
[2016-08-21 03:10] VITALS: BP 92/59; PULSE 70; TEMP 36.3; O2SAT 98
[2016-08-21] MEDS: SODIUM CHLORIDE 0.9% 1000ML 1,000 ML IV SCH ×2 (05:11→12:47)
[2016-08-21 06:53] LABS: BASO % 0.2 %; BASO ABS # 0.01 K/uL (0-0.2); COMPLETE YES; EOS % 1.3 %; HEMATOCRIT 26.7 % (37-47); IG% 0.2 %; LYMPH % 21.3 %; LYMPH ABS # 1.02 K/uL (1.2-3.4); MEAN CELL VOLUME 90.5 fL (80-100); MEAN CORPUSCULAR HEMOGLOBIN 32.5 pg (25-34); MEAN PLATELET VOLUME 9.3 fL (7.4-10.4); PLATELET COUNT 187 K/uL (130-400); RED BLOOD COUNT 2.95 M/uL (4.2-5.4); WHITE BLOOD COUNT 4.79 K/uL (4.8-10.8)
[2016-08-21 07:02] LABS: INR 2.7 (0.9-1.1); PROTHROMBIN TIME (PATIENT) 29.6 SECONDS (9.0-12.0)
[2016-08-21 07:20] LABS: BUN/CREATININE RATIO 41.9 (10-20); CALCIUM 8.1 mg/dl (8.5-10.1); POTASSIUM 4.4 mmol/L (3.5-5.1)
[2016-08-21] MEDS: LACTOBACILLUS ACIDOPHILUS (FLORANEX) TAB PO SCH (08:16)
[2016-08-21] MEDS: GABAPENTIN 300 MG CAP PO SCH ×2 (08:16→20:23)
[2016-08-21] MEDS: CALCIUM 600MG + VIT D 400 IU TAB PO SCH (08:17)
[2016-08-21] MEDS: CYANOCOBALAMIN 500 MCG TAB (VIT B-12) PO SCH (08:17)
[2016-08-21] MEDS: PANTOprazole SOD 40 MG TAB PO SCH ×2 (08:17→20:23)
[2016-08-21 08:20] VITALS: BP 109/72; PULSE 69; TEMP 36.8; O2SAT 97
--- NOTE | 2016-08-21 09:20 | Nephrology Progress Note ---
Nephrology Progress Note Date of Service Aug 21, 2016. Chief Complaint Evaluation of hyponatremia Subjective Ms. Akhtar was seen & examined in her hospital room this morning. She was sitting up in a chair. She complains of weakness but denies dyspnea or angina. The patient has hyponatremia. She was clinically volume contracted. Serum sodium has risen 6 mmol/L over the last 24 hours. Hospitalist staff has continued 0.9 NS at 150 cc/hr overnight. Ms. Akhtar has chronic atrial fibrillation and a h/o diastolic CHF. She currently denies palpitations or angina. Review of Systems Constitutional: No fever Cardiovascular: No chest pain Respiratory: No dyspnea at rest Abdomen: No pain Extremities: + leg edema A complete review of systems was performed. Pertinent positives are noted above. All other systems are negative. Vital Signs Last 8 Hrs Date Time Temp Pulse Resp B/P Pulse Ox O2 Delivery O2 Flow Rate FiO2 08/21/16 08:20 36.8 69 18 109/72 97 Nasal Cannula 3.0 08/21/16 03:10 36.3 70 18 92/59 98 Nasal Cannula 3.0 I & O 24-Hour Column 08/21/16 08:00 Intake Total 2493 ml Output Total 850 ml Balance 1643 ml Last Recorded Weight Weight (Kilograms): 78.200 Physical Exam General Appearance: no apparent distress Head: atraumatic Eyes: PERRL, EOMI ENT: + pertinent finding (dry mucous membranes) Neck: supple, no adenopathy Respiratory/Chest: lungs clear, no respiratory distress Cardiovascular: + irregularly irregular Abdomen/GI: normal bowel sounds, non tender, soft Extremities/Musculoskelatal: no calf tenderness, + swelling (1+ pretibial pitting edema) Neurologic/Psych: alert, oriented x 3 Family History Diabetes mellitus Negative for CKD/ESRD Social History Smoking Status: Never smoker Alcohol Use: none Drug Use: none Marital Status: Occupation: retired . Retired. Never a smoker. Denies alcohol use. Laboratory Results Past 24 Hours 08/21/16 06:24 Red Blood Count 2.95, Mean Corpuscular Volume 90.5, Mean Corpuscular Hemoglobin 32.5, Mean Corpuscular Hemoglobin Concent 36.0, Mean Platelet Volume 9.3, Neutrophils (%) (Auto) 67.0, Lymphocytes (%) (Auto) 21.3, Monocytes (%) (Auto) 10.0, Eosinophils (%) (Auto) 1.3, Basophils (%) (Auto) 0.2, Neutrophils # (Auto ) 3.21, Lymphocytes # (Auto) 1.02, Monocytes # (Auto) 0.48, Eosinophils # (Auto ) 0.06, Basophils # (Auto) 0.01 08/20/16 15:15 08/20/16 19:20 08/21/16 06:42 Test 08/20/16 15:15 08/20/16 19:20 08/21/16 06:24 08/21/16 06:42 Anion Gap 11.0 mmol/L (3-11) 12.0 mmol/L (3-11) 8.0 mmol/L (3-11) Est Creatinine Clear Calc Drug Dose 27.1 ml/min 25.0 ml/min 33.6 ml/min Estimated GFR () 46.4 42.1 57.8 Estimated GFR (Non- 40.0 36.3 49.9 BUN/Creatinine Ratio 38.1 (10-20) 35.9 (10-20) 41.9 (10-20) Osmolality 259 mOsm/kg (280-300) Calcium Level 8.7 mg/dl (8.5-10.1) 8.4 mg/dl (8.5-10.1) 8.1 mg/dl (8.5-10.1) Thyroid Stimulating Hormone (TSH) 2.250 uIu/ml (0.300-4.500) White Blood Count 4.79 K/uL (4.8-10.8) Red Blood Count 2.95 M/uL (4.2-5.4) Hemoglobin 9.6 g/dL (12.0-16.0) Hematocrit 26.7 % (37-47) Mean Corpuscular Volume 90.5 fL (80-100) Mean Corpuscular Hemoglobin 32.5 pg (25-34) Mean Corpuscular Hemoglobin Concent 36.0 g/dl (32-36) Platelet Count 187 K/uL (130-400) Mean Platelet Volume 9.3 fL (7.4-10.4) Neutrophils (%) (Auto) 67.0 % Lymphocytes (%) (Auto) 21.3 % Monocytes (%) (Auto) 10.0 % Eosinophils (%) (Auto) 1.3 % Basophils (%) (Auto) 0.2 % Neutrophils # (Auto) 3.21 K/uL (1.4-6.5) Lymphocytes # (Auto) 1.02 K/uL (1.2-3.4) Monocytes # (Auto) 0.48 K/uL (0.11-0.59) Eosinophils # (Auto) 0.06 K/uL (0-0.5) Basophils # (Auto) 0.01 K/uL (0-0.2) RDW Standard Deviation 43.0 fL (36.4-46.3) RDW Coefficient of Variation 13.0 % (11.5-14.5) Immature Granulocyte % (Auto) 0.2 % Immature Granulocyte # (Auto) 0.01 K/uL (0.00-0.02) Prothrombin Time 29.6 SECONDS (9.0-12.0) Prothromb Time International Ratio 2.7 (0.9-1.1) Magnesium Level 2.0 mg/dl (1.8-2.4) Total Bilirubin 0.6 mg/dl (0.2-1) Direct Bilirubin 0.2 mg/dl (0-0.2) Aspartate Amino Transf (AST/SGOT) 33 U/L (15-37) Alanine Aminotransferase (ALT/SGPT) 25 U/L (12-78) Alkaline Phosphatase 49 U/L (45-117) Total Protein 5.4 gm/dl (6.4-8.2) Albumin 3.0 gm/dl (3.4-5.0) Test 08/21/16 08:41 Allergies Coded Allergies: Morphine (Verified Allergy, Unknown, swelling, 07/23/16) Phenobarbital (Unverified Allergy, Unknown, ITCHINESS, 07/23/16) Medications Current Inpatient Medications Medications (Trade) Dose Ordered Sig/Naren Route Start Time Stop Time Status Last Admin Dose Admin Calcium/Vitamin D (Caltrate Plus Tab) 1 tab DAILY PO 08/20/16 09:00 09/19/16 08:59 08/21/16 08:17 1 TAB Cetirizine HCl (zyrTEC TAB) 10 mg DAILY PRN PO 08/19/16 22:45 09/18/16 22:44 08/20/16 08:00 10 MG Cyanocobalamin (Vitamin B-12 Tab) 2,000 mcg DAILY PO 08/20/16 09:00 09/19/16 08:59 08/21/16 08:17 2,000 MCG Gabapentin (Neurontin Cap) 300 mg BID PO 08/20/16 09:00 09/19/16 08:59 08/21/16 08:16 300 MG Acetaminophen/ Hydrocodone Bitart ([place] 5/325 Tab) 1 tab Q6H PRN PO 08/19/16 22:45 09/02/16 22:44 08/20/16 10:40 1 TAB Lorazepam (Ativan Tab) 0.5 mg HS PRN PO 08/19/16 22:45 09/18/16 22:44 Simvastatin (Zocor Tab) 5 mg QPM PO 08/20/16 21:00 09/19/16 20:59 08/20/16 21:16 5 MG Triamcinolone Acetonide (Kenalog 0.5% Crm) 1 appln BID EXT 08/20/16 09:00 09/19/16 08:59 08/20/16 08:00 1 APPLN Warfarin Sodium (Coumadin Tab) 1 mg SuWeThFrSa@1600 PO 08/20/16 16:00 09/19/16 15:59 08/20/16 16:12 1 MG Pantoprazole Sodium (Protonix Tab) 40 mg BID PO 08/20/16 09:00 09/19/16 08:59 08/21/16 08:17 40 MG Artificial Tears (Artificial Tears) 1 drops HS OPB 08/20/16 21:00 09/19/16 20:59 08/20/16 21:14 1 DROPS Lactobacillus Acidophilus (Floranex Tab) 4 tab DAILY PO 08/20/16 09:00 09/19/16 08:59 08/21/16 08:16 4 TAB Acetaminophen (Tylenol Tab) 650 mg Q4H PRN PO 08/19/16 22:45 09/18/16 22:44 08/20/16 21:12 650 MG Magnesium Hydroxide (Milk Of Magnesia Susp) 30 ml Q12H PRN PO 08/19/16 22:45 09/18/16 22:44 Ondansetron HCl (Zofran Inj) 4 mg Q6H PRN IV 08/19/16 22:45 09/18/16 22:44 Polyethylene 17 gm 17 gm DAILY PRN PO 08/19/16 22:45 09/18/16 22:44 08/20/16 08:09 17 GM Sodium Chloride (Nss 1000ml) 1,000 ml @ 150 mls/hr Q6H40M IV 08/20/16 22:15 09/19/16 22:14 08/21/16 05:11 150 MLS/HR Impression (1) Hyponatremia (2) Dehydration (3) Hypotension arterial (4) Atrial fibrillation (5) Chronic diastolic CHF (congestive heart failure) (6) Generalized weakness Patient admitted to the hospital for evaluation of hyponatremia. She has chronic diastolic CHF. Recently her diuretic regimen was adjusted and she was started on a thiazide in addition to her loop diuretic. Patient has experienced a brisk diuresis. Her lower extremity edema has markedly improved but she has become progressively weak. She reports orthostasis and lower extremity muscle cramping. Serum sodium has dropped to 119 mg/dl. Urine osmolality remains relatively low. Patient is clinically volume contracted. She has hypoosmolar hyponatremia due to thiazide diuretic use and clinical dehydration. Patient has no neurologic symptoms other than weakness. PMH - chronic atrial fibrillation, complete heart block requiring dual chamber pacemaker 2012, moderate MR, chronic diastolic heart failure, chronic venous insufficiency, GERD, OA, C. Difficile colitis and CKD w/ baseline creatinine 1.0 (EGFR 51 cc/min) Recommendations HYPONATREMIA: -- Patient was hydrated w/ 0.9 NS overnight. Serum sodium has risen 6 mEq over the last 24 hours. -- Patient remains clinically volume contracted -- Continue to hold diuretic therapy. Recommend avoiding thiazide diuretics in this patient in the future -- Will ask RN to obtain orthostatic vitals (not yet completed) -- Continue IV hydration w/ 0.9 NS at 150 cc/min -- Monitor serial PRP -- TSH was checked and found to be within normal limits. Patient is clinically euthyroid HYPOTENSION: -- Continue gentle hydration. Will check orthostatic vital signs DIASTOLIC CHF: -- Avoid thiazide diuretic in the future -- May benefit from BID loop diuretic therapy as outpatient once serum sodium has normalized CHRONIC KIDNEY DISEASE: -- Baseline creatinine has been 1.0 w/ EGFR 51 cc/min -- Urine sediment is acellular. Urinary protein is negative by dipstick -- Will obtain renal US only if kidney function declines ANEMIA: -- Will order iron studies and FOBT
[2016-08-21 09:42] VITALS: BP 136/80; PULSE 70; O2SAT 99
[2016-08-21 09:43] VITALS: BP 156/83; PULSE 72; O2SAT 99
[2016-08-21] MEDS: HYDROCODONE/ACETAMOPHEN 5/325MG TAB PO PRN ×3 (09:58→19:30)
[2016-08-21 11:39] VITALS: BP 98/57; PULSE 70; TEMP 36.3; O2SAT 99
[2016-08-21 13:14] LABS: FERRITIN 123.6 ng/ml (8.0-388.0)
--- NOTE | 2016-08-21 13:18 | Hospitalist Progress Note ---
Hospitalist Progress Note Date of Service Aug 21, 2016. Subjective Pt evaluation today including: conversation w/ patient, physical exam, review of inpatient medication list PO Intake: isidoro po Still feeling weak. Na+ level up to 124 from 118 in 24 hrs. No SOB, no CP. Constitutional: No fever Respiratory: No shortness of breath Cardiovascular: No chest pain All Other Systems: Reviewed and Negative Objective Vital Signs Date Time Temp Pulse Resp B/P Pulse Ox O2 Delivery O2 Flow Rate FiO2 08/21/16 12:00 Nasal Cannula 2.0 08/21/16 11:39 36.3 70 20 98/57 99 Nasal Cannula 3.0 08/21/16 09:43 72 156/83 99 08/21/16 09:42 70 136/80 99 08/21/16 08:20 36.8 69 18 109/72 97 Nasal Cannula 3.0 08/21/16 08:00 Nasal Cannula 2.0 08/21/16 03:10 36.3 70 18 92/59 98 Nasal Cannula 3.0 08/21/16 00:00 Nasal Cannula 08/20/16 20:00 Nasal Cannula 2.0 08/20/16 19:57 36.5 70 20 100/65 99 Nasal Cannula 2.0 08/20/16 19:55 36.5 70 20 100/66 99 Nasal Cannula 2.0 08/20/16 16:01 Nasal Cannula 2.0 08/20/16 15:38 36.5 70 18 133/74 100 Nasal Cannula 3.0 Physical Exam General Appearance: WD/WN, no apparent distress, + obese Eyes: normal inspection, sclerae normal ENT: pharynx normal (mucus membranes moist) Neck: trachea midline Respiratory/Chest: no respiratory distress, no accessory muscle use, + crackles (mild at bases) Cardiovascular: regular rate, rhythm, no gallop, + systolic murmur (1/6 MARIANA at RUSB), + pertinent finding (2-3+ pitting edfema legs to thighs bilat) Abdomen: normal bowel sounds, non tender, soft Extremities: no calf tenderness Neurologic/Psychiatric: alert, normal mood/affect, oriented x 3 Skin: normal color, warm/dry, no rash Laboratory Results Last 24 Hours Test 08/20/16 15:15 08/20/16 19:20 08/21/16 00:00 08/21/16 06:24 Sodium Level 121 mmol/L 121 mmol/L Potassium Level 3.3 mmol/L 4.0 mmol/L Chloride Level 79 mmol/L 81 mmol/L Carbon Dioxide Level 31 mmol/L 28 mmol/L Anion Gap 11.0 mmol/L 12.0 mmol/L Blood Urea Nitrogen 46 mg/dl 47 mg/dl Creatinine 1.20 mg/dl 1.30 mg/dl Est Creatinine Clear Calc Drug Dose 27.1 ml/min 25.0 ml/min Estimated GFR () 46.4 42.1 Estimated GFR (Non- 40.0 36.3 BUN/Creatinine Ratio 38.1 35.9 Random Glucose 138 mg/dl 130 mg/dl Osmolality 259 mOsm/kg Calcium Level 8.7 mg/dl 8.4 mg/dl Thyroid Stimulating Hormone (TSH) 2.250 uIu/ml Urine Osmolality 265 mOms/kg White Blood Count 4.79 K/uL Red Blood Count 2.95 M/uL Hemoglobin 9.6 g/dL Hematocrit 26.7 % Mean Corpuscular Volume 90.5 fL Mean Corpuscular Hemoglobin 32.5 pg Mean Corpuscular Hemoglobin Concent 36.0 g/dl Platelet Count 187 K/uL Mean Platelet Volume 9.3 fL Neutrophils (%) (Auto) 67.0 % Lymphocytes (%) (Auto) 21.3 % Monocytes (%) (Auto) 10.0 % Eosinophils (%) (Auto) 1.3 % Basophils (%) (Auto) 0.2 % Neutrophils # (Auto) 3.21 K/uL Lymphocytes # (Auto) 1.02 K/uL Monocytes # (Auto) 0.48 K/uL Eosinophils # (Auto) 0.06 K/uL Basophils # (Auto) 0.01 K/uL RDW Standard Deviation 43.0 fL RDW Coefficient of Variation 13.0 % Immature Granulocyte % (Auto) 0.2 % Immature Granulocyte # (Auto) 0.01 K/uL Test 08/21/16 06:42 08/21/16 12:00 08/21/16 12:30 08/21/16 12:35 Prothrombin Time 29.6 SECONDS Prothromb Time International Ratio 2.7 Sodium Level 124 mmol/L Potassium Level 4.4 mmol/L Chloride Level 88 mmol/L Carbon Dioxide Level 28 mmol/L Anion Gap 8.0 mmol/L Blood Urea Nitrogen 42 mg/dl Creatinine 1.00 mg/dl Est Creatinine Clear Calc Drug Dose 33.6 ml/min Estimated GFR () 57.8 Estimated GFR (Non- 49.9 BUN/Creatinine Ratio 41.9 Random Glucose 100 mg/dl Calcium Level 8.1 mg/dl Magnesium Level 2.0 mg/dl Total Bilirubin 0.6 mg/dl Direct Bilirubin 0.2 mg/dl Aspartate Amino Transf (AST/SGOT) 33 U/L Alanine Aminotransferase (ALT/SGPT) 25 U/L Alkaline Phosphatase 49 U/L Total Protein 5.4 gm/dl Albumin 3.0 gm/dl Transferrin % Saturation % Assessment and Plan 89 y/o F with Hx chronic AF, pacer in situ for complete heart block, HTN, mild , Pulm HTN, chronic diastolic CHF recently admitted for exacerbation, Sarcoidosis (1972 dxd with lymph node biopsy through thoracotomy?), GERD, OA, CKD stage IIIA, - has had some difficulty managing her volume status without a high dose of diuretics. She has had recent increases in her diuretic dosing: last week switched from lasix to bumex, then added metolazone every other day which really helped her leg swelling however she started feeling lightheaded and weak 3 days ago and was barely able to ambulate - labs were obtained by her MD on day of admission revealing severe electrolyte abnormalities including hyponatremia, hypokalemia and hypochloremia. 1) Hyponatremia, hyopkalemia: secondary to diuretics , CKD stage IIIA- Pt's initial Na = 118 and K = 2.8 - Chloride is low as well.[employer] stable at 1.1. Hypoosmolar hyponatremia due to thiazide diuretic use and clinical dehydration. Still with edema and crackles on exam but volume contracted. TSH normal, Urine Osm low Na+ from 118--> 124 in 24 hrs - continue NS 150ml/hr -replace K+ prn -continue NaCl and Nephrology consulted and appreciated -no more thiazides in the future, Nephro recommends loop diuretic bid once Na+ normalizes -check q4h BMPs and make rate adjustments as needed to avoid rapid correction - she will be monitored on telemetry. -Diuretics and ACEI have been held -Cardiology consult to her primary Dr. Huber placed -PT/OT consult for weakness 2) Chronic Diastolic CHF, Pulm HTN, Pacer in situ, h/o Sarcoidosis (cardiac sarcoid?), calcified MV, mild - recent admit for exacerbation / pulmonary edema - will require volume status monitoring and continuous oximetry - Diuretics can be provided PRN only -daily weights, I/Os -consult Cardiology as above for further management -consider restarting loop diuretic bid only after Na+ normalizes 3) HTN -holding amlodipine, ACEI 4) Chronic AF - paced rhythm - INR 3.5 on admission, now 2.7 - cont Coumadin at lower dose Proph: coumadin, PPI Dispo- DNR
[2016-08-21 13:20] LABS: BUN/CREATININE RATIO 35.7 (10-20); CALCIUM 8.7 mg/dl (8.5-10.1); POTASSIUM 4.2 mmol/L (3.5-5.1)
[2016-08-21 16:00] VITALS: BP 116/73; PULSE 70; TEMP 36.4; O2SAT 98
--- NOTE | 2016-08-21 16:14 | Cardiology Consultation ---
Cardiology Consultation Date of Consultation: Aug 21, 2016. Requesting Physician: Dr. Liz Reason for Consultation: History of Diastolic Heart Failure Pt evaluation today including: conversation w/ patient, conversation w/ family , physical exam, chart review, lab review, review of studies, review of inpatient medication list History of Present Illness Mrs. Akhtar this is a very pleasant 89-year-old woman with a history persistent atrial fibrillation, status post dual chamber permanent pacemaker for complete heart block, hypertension, moderate mitral regurgitation, chronic venous insufficiency, and chronic diastolic heart failure known to me from the outpatient setting who was admitted in the setting of hyponatremia following overdiuresis Patient has had multiple recent admission for acute decompensated heart failure requiring IV diuretics most recently 1 month ago. At that time she was switched from BID lasix to bumex fluid maintenance. Since last discharge she has had gradual increase in lower extremity swelling and home recorded weights despite loop diuretics. She was started on intermittent metalozone. With thiazide had initial improvement in symptoms with brisk diuresis but then began to develop weakness, light-headedness and muscle cramps. Repeat BMP showed severe hyponatremia down to 118 and hypokalemia. Upon presentation started on normal saline fluid repletion, most recently at 150 cc/hr. With renal and hospital medicine management gradual increase in sodium now up to 124. Today patient still endorses generalized weakness but states that she is feeling somewhat better than yesterday evening. Denies significant shortness of breath. No chest pain or palpitations. Most recent cardiovascular testing includes: ECHO (06/2016): Normal LV size, mild LVH, EF 60%, biatrial dilation, normal RV size and function, mild , severe MAC with mild MR, Estimated PASP 40-50 Pacemaker check (02/2016): [employer], implanted 03/2013, DDDR at 60, upper rate 105. Thirty-one atrial high rate episodes, AFib longus greater than 23 hours. Ten ventricular high rate episodes, none sustained VT, longest 21 beats. ECHO (07/2014): Normal LV size mild LVH, EF 60-65 percent, biatrial dilation, borderline RV enlargement, normal RV systolic function, mild valvular aortic stenosis, severe MAC with moderate mitral regurgitation, [id number] TR with estimated PA pressure approximately 40-50. Pharmacologic SPECT (07/2014): Normal perfusion without infarct or ischemia, LVEF 77 percent with normal wall motion. Past Medical/Surgical History As discussed above Family History Diabetes mellitus Non-contributory Social History Smoking Status: Never Smoker History of Alcohol Use: No Lives at home with family near by Review of Systems Constitutional: No chills, No fever Respiratory: No cough, No shortness of breath, No sputum Cardiac: No chest pain Abdomen: No nausea, No pain Female : No dysuria Neurologic: No memory loss Heme: No abnormal bleeding/bruising Endo: + excessive thirst, + fatigue Skin: No rash All Other Systems: Reviewed and Negative Allergies Coded Allergies: Morphine (Verified Allergy, Unknown, swelling, 07/23/16) Phenobarbital (Unverified Allergy, Unknown, ITCHINESS, 07/23/16) Medications Current Inpatient Medications Medications (Trade) Dose Ordered Sig/Naren Route Start Time Stop Time Status Last Admin Dose Admin Calcium/Vitamin D (Caltrate Plus Tab) 1 tab DAILY PO 08/20/16 09:00 09/19/16 08:59 08/21/16 08:17 1 TAB Cetirizine HCl (zyrTEC TAB) 10 mg DAILY PRN PO 08/19/16 22:45 09/18/16 22:44 08/20/16 08:00 10 MG Cyanocobalamin (Vitamin B-12 Tab) 2,000 mcg DAILY PO 08/20/16 09:00 09/19/16 08:59 08/21/16 08:17 2,000 MCG Gabapentin (Neurontin Cap) 300 mg BID PO 08/20/16 09:00 09/19/16 08:59 08/21/16 08:16 300 MG Acetaminophen/ Hydrocodone Bitart ([place] 5/325 Tab) 1 tab Q6H PRN PO 08/19/16 22:45 09/02/16 22:44 08/21/16 13:28 1 TAB Lorazepam (Ativan Tab) 0.5 mg HS PRN PO 08/19/16 22:45 09/18/16 22:44 Simvastatin (Zocor Tab) 5 mg QPM PO 08/20/16 21:00 09/19/16 20:59 08/20/16 21:16 5 MG Triamcinolone Acetonide (Kenalog 0.5% Crm) 1 appln BID EXT 08/20/16 09:00 09/19/16 08:59 08/20/16 08:00 1 APPLN Warfarin Sodium (Coumadin Tab) 1 mg SuWeThFrSa@1600 PO 08/20/16 16:00 09/19/16 15:59 08/20/16 16:12 1 MG Pantoprazole Sodium (Protonix Tab) 40 mg BID PO 08/20/16 09:00 09/19/16 08:59 08/21/16 08:17 40 MG Artificial Tears (Artificial Tears) 1 drops HS OPB 08/20/16 21:00 09/19/16 20:59 08/20/16 21:14 1 DROPS Lactobacillus Acidophilus (Floranex Tab) 4 tab DAILY PO 08/20/16 09:00 09/19/16 08:59 08/21/16 08:16 4 TAB Acetaminophen (Tylenol Tab) 650 mg Q4H PRN PO 08/19/16 22:45 09/18/16 22:44 08/20/16 21:12 650 MG Magnesium Hydroxide (Milk Of Magnesia Susp) 30 ml Q12H PRN PO 08/19/16 22:45 09/18/16 22:44 Ondansetron HCl (Zofran Inj) 4 mg Q6H PRN IV 08/19/16 22:45 09/18/16 22:44 Polyethylene 17 gm 17 gm DAILY PRN PO 08/19/16 22:45 09/18/16 22:44 08/20/16 08:09 17 GM Sodium Chloride (Nss 1000ml) 1,000 ml @ 150 mls/hr Q6H40M IV 08/20/16 22:15 09/19/16 22:14 08/21/16 12:47 150 MLS/HR Physical Exam Vital Signs Past 12 Hours Date Time Temp Pulse Resp B/P Pulse Ox O2 Delivery O2 Flow Rate FiO2 08/21/16 12:00 Nasal Cannula 2.0 08/21/16 11:39 36.3 70 20 98/57 99 Nasal Cannula 3.0 08/21/16 09:43 72 156/83 99 08/21/16 09:42 70 136/80 99 08/21/16 08:20 36.8 69 18 109/72 97 Nasal Cannula 3.0 08/21/16 08:00 Nasal Cannula 2.0 Head: normocephalic Eyes: Pupils: PERRLA ENMT: normal ENT inspection Neck: supple Lungs: Respiratory effort: no dyspnea Auscultation: breath sounds normal, no rales/crackles Cardiovascular: Heart Auscultation: RRR, II/ MARIANA, pertinent finding (No jugular venous distention) Peripheral Pulses: Radial Pulse: normal on the left, normal on the right Dorsalis Pedis Pulse: normal on the left, normal on the right Abdomen: Bowel Sounds: normal Inspection & Palpation: soft, no tenderness, guarding & rebound Extremities: no cyanosis, no ulcers, pertinent finding (1+ lower extremity edema) Neurologic: Cranial Nerves: grossly intact Sensation: grossly intact Data Laboratory Results: Last 24 Hours Test 08/20/16 19:20 08/21/16 00:00 08/21/16 06:24 08/21/16 06:42 Sodium Level 121 mmol/L 124 mmol/L Potassium Level 4.0 mmol/L 4.4 mmol/L Chloride Level 81 mmol/L 88 mmol/L Carbon Dioxide Level 28 mmol/L 28 mmol/L Anion Gap 12.0 mmol/L 8.0 mmol/L Blood Urea Nitrogen 47 mg/dl 42 mg/dl Creatinine 1.30 mg/dl 1.00 mg/dl Est Creatinine Clear Calc Drug Dose 25.0 ml/min 33.6 ml/min Estimated GFR () 42.1 57.8 Estimated GFR (Non- 36.3 49.9 BUN/Creatinine Ratio 35.9 41.9 Random Glucose 130 mg/dl 100 mg/dl Calcium Level 8.4 mg/dl 8.1 mg/dl Urine Osmolality 265 mOms/kg White Blood Count 4.79 K/uL Red Blood Count 2.95 M/uL Hemoglobin 9.6 g/dL Hematocrit 26.7 % Mean Corpuscular Volume 90.5 fL Mean Corpuscular Hemoglobin 32.5 pg Mean Corpuscular Hemoglobin Concent 36.0 g/dl Platelet Count 187 K/uL Mean Platelet Volume 9.3 fL Neutrophils (%) (Auto) 67.0 % Lymphocytes (%) (Auto) 21.3 % Monocytes (%) (Auto) 10.0 % Eosinophils (%) (Auto) 1.3 % Basophils (%) (Auto) 0.2 % Neutrophils # (Auto) 3.21 K/uL Lymphocytes # (Auto) 1.02 K/uL Monocytes # (Auto) 0.48 K/uL Eosinophils # (Auto) 0.06 K/uL Basophils # (Auto) 0.01 K/uL RDW Standard Deviation 43.0 fL RDW Coefficient of Variation 13.0 % Immature Granulocyte % (Auto) 0.2 % Immature Granulocyte # (Auto) 0.01 K/uL Prothrombin Time 29.6 SECONDS Prothromb Time International Ratio 2.7 Magnesium Level 2.0 mg/dl Total Bilirubin 0.6 mg/dl Direct Bilirubin 0.2 mg/dl Aspartate Amino Transf (AST/SGOT) 33 U/L Alanine Aminotransferase (ALT/SGPT) 25 U/L Alkaline Phosphatase 49 U/L Total Protein 5.4 gm/dl Albumin 3.0 gm/dl Test 08/21/16 12:30 08/21/16 12:35 Iron Level 37 mcg/dl Total Iron Binding Capacity 263 mcg/dl Transferrin 207 mg/dl Transferrin % Saturation 13 % Ferritin 123.6 ng/ml Sodium Level 126 mmol/L Potassium Level 4.2 mmol/L Chloride Level 88 mmol/L Carbon Dioxide Level 27 mmol/L Anion Gap 11.0 mmol/L Blood Urea Nitrogen 36 mg/dl Creatinine 1.00 mg/dl Est Creatinine Clear Calc Drug Dose 33.6 ml/min Estimated GFR () 57.8 Estimated GFR (Non- 49.9 BUN/Creatinine Ratio 35.7 Random Glucose 110 mg/dl Calcium Level 8.7 mg/dl EKG: Ventricularly paced rhythm with underlying atrial fib/flutter Telemetry reviewed: No tachyarrhythmias Assessment & Plan 1. Hypovolemic hyponatremia 2. Hypokalemia 3. Chronic diastolic heart failure 4. Persistent atrial fib/flutter 5. post PPM for CHB 6. Hypertension Patient, electrolytes improving with IV hydration. Appreciate hospital medicine and nephrology care. No pulmonary congestion on exam, still appears hypovolemic and agree with continued IV fluids and held diuretics, antihypertensives. Continue anticoagulation Will continue to follow while in hospital. Please contact with any questions.
[2016-08-21] MEDS: WARFARIN SOD 1 MG TAB PO SCH (16:17)
[2016-08-21 16:51] LABS: BUN/CREATININE RATIO 38.1 (10-20); CALCIUM 8.3 mg/dl (8.5-10.1); CREATININE 0.97 mg/dl (0.60-1.20); POTASSIUM 4.4 mmol/L (3.5-5.1)
[2016-08-21] MEDS: ARTIFICIAL TEARS OP SOLN OPB SCH ×2 (20:22)
[2016-08-21] MEDS: TRIAMCINOLONE ACET 0.5% CR 15 GM TUBE EXT SCH (20:23)
[2016-08-21] MEDS: SIMVASTATIN 5 MG TAB PO SCH (20:23)
[2016-08-21] MEDS: ACETAMINOPHEN 325 MG TAB PO PRN (21:50)
[2016-08-22] VITALS (8 sets, daily range): BP systolic 106–138; BP diastolic 68–82; PULSE 70–84; TEMP 36.3–36.6; O2SAT 93–96
[2016-08-22] MEDS: HYDROCODONE/ACETAMOPHEN 5/325MG TAB PO PRN ×3 (01:29→19:11)
[2016-08-22 07:41] LABS: BASO % 0.2 %; BASO ABS # 0.01 K/uL (0-0.2); COMPLETE YES; EOS % 1.1 %; HEMATOCRIT 28.8 % (37-47); IG% 0.2 %; LYMPH % 16.9 %; LYMPH ABS # 1.07 K/uL (1.2-3.4); MEAN CELL VOLUME 93.5 fL (80-100); MEAN CORPUSCULAR HEMOGLOBIN 31.8 pg (25-34); MONO % 13.4 %; NEUT % 68.2 %; PLATELET COUNT 218 K/uL (130-400); RED BLOOD COUNT 3.08 M/uL (4.2-5.4); WHITE BLOOD COUNT 6.34 K/uL (4.8-10.8)
[2016-08-22] MEDS: CALCIUM 600MG + VIT D 400 IU TAB PO SCH (07:45)
[2016-08-22] MEDS: LACTOBACILLUS ACIDOPHILUS (FLORANEX) TAB PO SCH (07:46)
[2016-08-22] MEDS: GABAPENTIN 300 MG CAP PO SCH ×2 (07:46→19:21)
[2016-08-22] MEDS: CYANOCOBALAMIN 500 MCG TAB (VIT B-12) PO SCH (07:47)
[2016-08-22] MEDS: PANTOprazole SOD 40 MG TAB PO SCH ×2 (07:47→19:22)
[2016-08-22] MEDS: TRIAMCINOLONE ACET 0.5% CR 15 GM TUBE EXT SCH ×2 (07:48→19:21)
[2016-08-22 07:50] LABS: INR 2.4 (0.9-1.1); PROTHROMBIN TIME (PATIENT) 26.3 SECONDS (9.0-12.0)
[2016-08-22 08:32] LABS: BUN/CREATININE RATIO 38.7 (10-20); CALCIUM 8.7 mg/dl (8.5-10.1); CREATININE 0.95 mg/dl (0.60-1.20); POTASSIUM 4.3 mmol/L (3.5-5.1)
--- NOTE | 2016-08-22 10:36 | Nephrology Progress Note ---
Nephrology Progress Note Date of Service Aug 22, 2016. Chief Complaint Evaluation of hyponatremia Subjective Ms. Akhtar was seen & examined in her hospital room this morning. She slept poorly due to her roommate. She complains of weakness but wants to get up to a chair today. The patient has hyponatremia. She was clinically volume contracted. Serum sodium has risen 10 mmol/L over the last 48 hours. Saline infusion was stopped yesterday evening. Patient denies dyspnea at rest. She requires O2 at 2 L / min NC when ambulating. Ms. Akhtar has chronic atrial fibrillation and a h/o diastolic CHF. She currently denies palpitations or angina. Review of Systems Constitutional: No fever Cardiovascular: No chest pain Respiratory: + dyspnea on exertion Abdomen: No pain Extremities: No leg edema A complete review of systems was performed. Pertinent positives are noted above. All other systems are negative. Vital Signs Last 8 Hrs Date Time Temp Pulse Resp B/P Pulse Ox O2 Delivery O2 Flow Rate FiO2 08/22/16 08:17 36.3 75 20 138/82 93 2.0 08/22/16 04:29 36.6 70 20 107/69 96 Nasal Cannula 2.0 08/22/16 04:00 Nasal Cannula 2.0 I & O 24-Hour Column 08/22/16 08:00 Intake Total 1879 ml Output Total 950 ml Balance 929 ml Last Recorded Weight Weight (Kilograms): 78.600 Physical Exam General Appearance: no apparent distress Head: normocephalic, atraumatic Eyes: PERRL, EOMI Neck: supple, no adenopathy Respiratory/Chest: lungs clear, no respiratory distress Cardiovascular: regular rate, rhythm Abdomen/GI: normal bowel sounds, non tender, soft Extremities/Musculoskelatal: no calf tenderness, no pedal edema Neurologic/Psych: alert, oriented x 3 Family History Diabetes mellitus Negative for CKD/ESRD Social History Smoking Status: Never smoker Alcohol Use: none Drug Use: none Marital Status: Occupation: retired . Retired. Never a smoker. Denies alcohol use. Laboratory Results Past 24 Hours 08/22/16 07:04 Red Blood Count 3.08, Mean Corpuscular Volume 93.5, Mean Corpuscular Hemoglobin 31.8, Mean Corpuscular Hemoglobin Concent 34.0, Mean Platelet Volume 10.0, Neutrophils (%) (Auto) 68.2, Lymphocytes (%) (Auto) 16.9, Monocytes (%) (Auto) 13.4, Eosinophils (%) (Auto) 1.1, Basophils (%) (Auto) 0.2, Neutrophils # (Auto ) 4.33, Lymphocytes # (Auto) 1.07, Monocytes # (Auto) 0.85, Eosinophils # (Auto ) 0.07, Basophils # (Auto) 0.01 08/21/16 12:35 08/21/16 16:20 08/22/16 07:04 Test 08/21/16 12:30 08/21/16 12:35 08/21/16 16:20 08/22/16 07:04 Iron Level 37 mcg/dl (35-150) Total Iron Binding Capacity 263 mcg/dl (250-450) Transferrin 207 mg/dl (200-360) Transferrin % Saturation 13 % (15-50) Ferritin 123.6 ng/ml (8.0-388.0) Anion Gap 11.0 mmol/L (3-11) 10.0 mmol/L (3-11) 9.0 mmol/L (3-11) Est Creatinine Clear Calc Drug Dose 33.6 ml/min 34.6 ml/min 35.5 ml/min Estimated GFR () 57.8 60.0 61.5 Estimated GFR (Non- 49.9 51.8 53.1 BUN/Creatinine Ratio 35.7 (10-20) 38.1 (10-20) 38.7 (10-20) Calcium Level 8.7 mg/dl (8.5-10.1) 8.3 mg/dl (8.5-10.1) 8.7 mg/dl (8.5-10.1) White Blood Count 6.34 K/uL (4.8-10.8) Red Blood Count 3.08 M/uL (4.2-5.4) Hemoglobin 9.8 g/dL (12.0-16.0) Hematocrit 28.8 % (37-47) Mean Corpuscular Volume 93.5 fL (80-100) Mean Corpuscular Hemoglobin 31.8 pg (25-34) Mean Corpuscular Hemoglobin Concent 34.0 g/dl (32-36) Platelet Count 218 K/uL (130-400) Mean Platelet Volume 10.0 fL (7.4-10.4) Neutrophils (%) (Auto) 68.2 % Lymphocytes (%) (Auto) 16.9 % Monocytes (%) (Auto) 13.4 % Eosinophils (%) (Auto) 1.1 % Basophils (%) (Auto) 0.2 % Neutrophils # (Auto) 4.33 K/uL (1.4-6.5) Lymphocytes # (Auto) 1.07 K/uL (1.2-3.4) Monocytes # (Auto) 0.85 K/uL (0.11-0.59) Eosinophils # (Auto) 0.07 K/uL (0-0.5) Basophils # (Auto) 0.01 K/uL (0-0.2) RDW Standard Deviation 46.5 fL (36.4-46.3) RDW Coefficient of Variation 13.5 % (11.5-14.5) Immature Granulocyte % (Auto) 0.2 % Immature Granulocyte # (Auto) 0.01 K/uL (0.00-0.02) Prothrombin Time 26.3 SECONDS (9.0-12.0) Prothromb Time International Ratio 2.4 (0.9-1.1) Allergies Coded Allergies: Morphine (Verified Allergy, Unknown, swelling, 07/23/16) Phenobarbital (Unverified Allergy, Unknown, ITCHINESS, 07/23/16) Medications Current Inpatient Medications Medications (Trade) Dose Ordered Sig/Naren Route Start Time Stop Time Status Last Admin Dose Admin Calcium/Vitamin D (Caltrate Plus Tab) 1 tab DAILY PO 08/20/16 09:00 09/19/16 08:59 08/22/16 07:45 1 TAB Cetirizine HCl (zyrTEC TAB) 10 mg DAILY PRN PO 08/19/16 22:45 09/18/16 22:44 08/20/16 08:00 10 MG Cyanocobalamin (Vitamin B-12 Tab) 2,000 mcg DAILY PO 08/20/16 09:00 09/19/16 08:59 08/22/16 07:47 2,000 MCG Gabapentin (Neurontin Cap) 300 mg BID PO 08/20/16 09:00 09/19/16 08:59 08/22/16 07:46 300 MG Acetaminophen/ Hydrocodone Bitart ([place] 5/325 Tab) 1 tab Q6H PRN PO 08/19/16 22:45 09/02/16 22:44 08/22/16 09:57 1 TAB Lorazepam (Ativan Tab) 0.5 mg HS PRN PO 08/19/16 22:45 09/18/16 22:44 Simvastatin (Zocor Tab) 5 mg QPM PO 08/20/16 21:00 09/19/16 20:59 08/21/16 20:23 5 MG Triamcinolone Acetonide (Kenalog 0.5% Crm) 1 appln BID EXT 08/20/16 09:00 09/19/16 08:59 08/22/16 07:48 1 APPLN Warfarin Sodium (Coumadin Tab) 1 mg SuWeThFrSa@1600 PO 08/20/16 16:00 09/19/16 15:59 08/21/16 16:17 1 MG Pantoprazole Sodium (Protonix Tab) 40 mg BID PO 08/20/16 09:00 09/19/16 08:59 08/22/16 07:47 40 MG Artificial Tears (Artificial Tears) 1 drops HS OPB 08/20/16 21:00 09/19/16 20:59 08/21/16 20:22 1 DROPS Lactobacillus Acidophilus (Floranex Tab) 4 tab DAILY PO 08/20/16 09:00 09/19/16 08:59 08/22/16 07:46 4 TAB Acetaminophen (Tylenol Tab) 650 mg Q4H PRN PO 08/19/16 22:45 09/18/16 22:44 08/21/16 21:50 650 MG Magnesium Hydroxide (Milk Of Magnesia Susp) 30 ml Q12H PRN PO 08/19/16 22:45 09/18/16 22:44 Ondansetron HCl (Zofran Inj) 4 mg Q6H PRN IV 08/19/16 22:45 09/18/16 22:44 Polyethylene (Miralax Powder Packet) 17 gm DAILY PRN PO 08/19/16 22:45 09/18/16 22:44 08/20/16 08:09 17 GM Impression (1) Hyponatremia (2) Dehydration (3) Hypotension arterial (4) Atrial fibrillation (5) Chronic diastolic CHF (congestive heart failure) (6) Generalized weakness Patient admitted to the hospital for evaluation of hyponatremia. She has chronic diastolic CHF. Recently her diuretic regimen was adjusted and she was started on a thiazide in addition to her loop diuretic. Patient has experienced a brisk diuresis. Her lower extremity edema has markedly improved but she has become progressively weak. She reports orthostasis and lower extremity muscle cramping. Serum sodium has dropped to 119 mg/dl. Urine osmolality remains relatively low. Patient is clinically volume contracted. She has hypoosmolar hyponatremia due to thiazide diuretic use and clinical dehydration. Patient has no neurologic symptoms other than weakness. PMH - chronic atrial fibrillation, complete heart block requiring dual chamber pacemaker 2012, moderate MR, chronic diastolic heart failure, chronic venous insufficiency, GERD, OA, C. Difficile colitis and CKD w/ baseline creatinine 1.0 (EGFR 51 cc/min) Recommendations HYPONATREMIA: -- Serum sodium has risen 10 mEq over the last 48 hours. -- Patient appears euvolemic. Saline infusion was discontinued yesterday evening -- Will provide oral NaCl today and one dose of furosemide -- Monitor serial PRP -- TSH was checked and found to be within normal limits. Patient is clinically euthyroid HYPOTENSION: -- Resolved. Patient is now clinically euvolemic DIASTOLIC CHF: -- Avoid thiazide diuretic in the future -- May benefit from BID loop diuretic therapy as outpatient once serum sodium has normalized CHRONIC KIDNEY DISEASE: -- Baseline creatinine has been 1.0 w/ EGFR 51 cc/min -- Urine sediment is acellular. Urinary protein is negative by dipstick -- Will obtain renal US only if kidney function declines ANEMIA: -- Awaiting FOBT -- Iron stores are low -- Will start IV iron
[2016-08-22] MEDS ORDERED: BUMETANIDE 1 MG TAB PO ONE (10:37)
[2016-08-22] MEDS ORDERED: SODIUM CHLORIDE 1 GM TAB PO ONE (11:00)
--- NOTE | 2016-08-22 11:10 | Cardiology Follow-Up ---
Subjective Date of Service: Aug 22, 2016. Pt evaluation today including: conversation w/ patient, physical exam, chart review, lab review, review of studies, review of inpatient medication list History of Present Illness Mrs. Akhtar is currently resting comfortably in bed. She reports that she is very tired since she did not sleep well last night due to her roommate. She still feels very weak, but she feels as though she is gradually improving. She denies chest pain or other anginal type symptoms. She notes exertional dyspnea, which has been stable in nature. She denies shortness of breath at rest or orthopnea. She denies lightheadedness, dizziness, or presyncope. Social History Smoking Status: Never Smoker History of Alcohol Use: No Review of Systems Respiratory: No cough, No shortness of breath, No sputum Cardiac: No chest pain Objective Vital Signs Past 12 Hours Date Time Temp Pulse Resp B/P Pulse Ox O2 Delivery O2 Flow Rate FiO2 08/22/16 08:17 36.3 75 20 138/82 93 2.0 08/22/16 04:29 36.6 70 20 107/69 96 Nasal Cannula 2.0 08/22/16 04:00 Nasal Cannula 2.0 08/22/16 00:23 36.6 70 20 106/68 95 Nasal Cannula 2.0 08/22/16 00:00 Nasal Cannula 2.0 Last Recorded Weight-Kilograms: 78.600 Intake & Output 8-Hour Column 08/21/16 08/22/16 08/22/16 16:00 00:00 08:00 Intake Total 1579 ml 300 ml Output Total 50 ml 650 ml 250 ml Balance 1529 ml -350 ml -250 ml 24-Hour Column 08/22/16 08:00 Intake Total 1879 ml Output Total 950 ml Balance 929 ml Physical Exam Extremities: pertinent finding (1+ lower extremity edema) Constitutional: Alert, oriented, in no acute distress HEENT: Head is atraumatic and normocephalic. EOMs intact. Sclera anicteric. Face is symmetric. No perioral cyanosis. Mucous membranes moist. Neck: Supple, no JVD, no carotid bruits Pulmonary: Normal respiratory effort, clear to auscultation bilaterally Cardiac: Regular rate and rhythm, normal S1 and S2, no gallops, no rubs, 2/6 basal systolic ejection murmur Extremities: Trace lower extremity edema bilaterally. No clubbing or cyanosis. Pulses intact Abdomen: Normal bowel sounds, soft, non-tender, no abdominal mass palpated Skin: Normal skin color, turgor, and pigmentation, no rash, no skin lesions Neurological: Oriented to person, place, and time Data Laboratory Results: Last 24 Hours Test 08/21/16 12:30 08/21/16 12:35 08/21/16 16:20 08/22/16 07:04 Iron Level 37 mcg/dl Total Iron Binding Capacity 263 mcg/dl Transferrin 207 mg/dl Transferrin % Saturation 13 % Ferritin 123.6 ng/ml Sodium Level 126 mmol/L 126 mmol/L 127 mmol/L Potassium Level 4.2 mmol/L 4.4 mmol/L 4.3 mmol/L Chloride Level 88 mmol/L 89 mmol/L 92 mmol/L Carbon Dioxide Level 27 mmol/L 27 mmol/L 26 mmol/L Anion Gap 11.0 mmol/L 10.0 mmol/L 9.0 mmol/L Blood Urea Nitrogen 36 mg/dl 37 mg/dl 37 mg/dl Creatinine 1.00 mg/dl 0.97 mg/dl 0.95 mg/dl Est Creatinine Clear Calc Drug Dose 33.6 ml/min 34.6 ml/min 35.5 ml/min Estimated GFR () 57.8 60.0 61.5 Estimated GFR (Non- 49.9 51.8 53.1 BUN/Creatinine Ratio 35.7 38.1 38.7 Random Glucose 110 mg/dl 113 mg/dl 95 mg/dl Calcium Level 8.7 mg/dl 8.3 mg/dl 8.7 mg/dl White Blood Count 6.34 K/uL Red Blood Count 3.08 M/uL Hemoglobin 9.8 g/dL Hematocrit 28.8 % Mean Corpuscular Volume 93.5 fL Mean Corpuscular Hemoglobin 31.8 pg Mean Corpuscular Hemoglobin Concent 34.0 g/dl Platelet Count 218 K/uL Mean Platelet Volume 10.0 fL Neutrophils (%) (Auto) 68.2 % Lymphocytes (%) (Auto) 16.9 % Monocytes (%) (Auto) 13.4 % Eosinophils (%) (Auto) 1.1 % Basophils (%) (Auto) 0.2 % Neutrophils # (Auto) 4.33 K/uL Lymphocytes # (Auto) 1.07 K/uL Monocytes # (Auto) 0.85 K/uL Eosinophils # (Auto) 0.07 K/uL Basophils # (Auto) 0.01 K/uL RDW Standard Deviation 46.5 fL RDW Coefficient of Variation 13.5 % Immature Granulocyte % (Auto) 0.2 % Immature Granulocyte # (Auto) 0.01 K/uL Prothrombin Time 26.3 SECONDS Prothromb Time International Ratio 2.4 Telemetry reviewed: Paced rhythm. No tachyarrhythmias Assessment and Plan 1. Hypovolemic hyponatremia- Improved to 127. IV hydration discontinued last evening. Oral NaCl to be given today per Nephrology. 2. Hypokalemia- resolved 3. Chronic diastolic heart failure- She appears euvolemic currently, but would be careful with monitoring of her volume status as she has recently struggled with acute on chronic diastolic CHF. Recommend resuming PO Loop diuretic BID once her serum sodium stabilizes. Continue to monitor I&O and PRP. 4. Persistent atrial fib/flutter- She is currently paced. Continue anticoagulation therapy. 5. post PPM for CHB 6. Hypertension- BP well controlled currently.
[2016-08-22] MEDS: IRON SUCROSE INJ 100 MG in SODIUM CHLORIDE 0.9% 100ML 100 ML IV SCH (11:32)
[2016-08-22] MEDS: ACETAMINOPHEN 325 MG TAB PO PRN (14:16)
[2016-08-22 16:36] LABS: BUN/CREATININE RATIO 33.6 (10-20); CALCIUM 8.8 mg/dl (8.5-10.1); POTASSIUM 3.9 mmol/L (3.5-5.1)
--- NOTE | 2016-08-22 16:49 | Hospitalist Progress Note ---
Hospitalist Progress Note Date of Service Aug 22, 2016. Subjective Pt evaluation today including: conversation w/ patient, physical exam, chart review, lab review, review of studies, review of inpatient medication list Voiding: no voiding problems Did not sleep well at all last night due to her roommate. Feeling a little stronger today but very tired. Na+ up to 127 this afternoon then 126 just now. IVFs stopped yesterday and on NaCl tabs and received lasix today as per Nephro Constitutional: No fever Respiratory: + dyspnea on exertion Cardiovascular: No chest pain Abdomen: No pain Endo: + fatigue All Other Systems: Reviewed and Negative Objective Vital Signs Date Time Temp Pulse Resp B/P Pulse Ox O2 Delivery O2 Flow Rate FiO2 08/22/16 15:14 36.3 70 20 115/69 96 08/22/16 12:49 36.3 84 20 118/74 96 2.0 08/22/16 12:00 Nasal Cannula 2.0 08/22/16 08:17 36.3 75 20 138/82 93 2.0 08/22/16 08:00 Nasal Cannula 2.0 08/22/16 04:29 36.6 70 20 107/69 96 Nasal Cannula 2.0 08/22/16 04:00 Nasal Cannula 2.0 08/22/16 00:23 36.6 70 20 106/68 95 Nasal Cannula 2.0 08/22/16 00:00 Nasal Cannula 2.0 08/21/16 19:25 Nasal Cannula 2.0 Physical Exam General Appearance: WD/WN, no apparent distress Eyes: normal inspection, sclerae normal ENT: hearing grossly normal Neck: trachea midline Respiratory/Chest: normal breath sounds, no respiratory distress, no accessory muscle use, + crackles (mild at bases) Cardiovascular: regular rate, rhythm, no murmur, + pertinent finding (2+ pitting edema legs to knees bilat) Abdomen: normal bowel sounds, non tender, soft Extremities: non-tender, no calf tenderness (with AUDI hose on) Neurologic/Psychiatric: alert, normal mood/affect, oriented x 3 Skin: normal color, warm/dry, no rash Laboratory Results Last 24 Hours Test 08/22/16 07:04 08/22/16 15:55 08/22/16 16:29 White Blood Count 6.34 K/uL Red Blood Count 3.08 M/uL Hemoglobin 9.8 g/dL Hematocrit 28.8 % Mean Corpuscular Volume 93.5 fL Mean Corpuscular Hemoglobin 31.8 pg Mean Corpuscular Hemoglobin Concent 34.0 g/dl Platelet Count 218 K/uL Mean Platelet Volume 10.0 fL Neutrophils (%) (Auto) 68.2 % Lymphocytes (%) (Auto) 16.9 % Monocytes (%) (Auto) 13.4 % Eosinophils (%) (Auto) 1.1 % Basophils (%) (Auto) 0.2 % Neutrophils # (Auto) 4.33 K/uL Lymphocytes # (Auto) 1.07 K/uL Monocytes # (Auto) 0.85 K/uL Eosinophils # (Auto) 0.07 K/uL Basophils # (Auto) 0.01 K/uL RDW Standard Deviation 46.5 fL RDW Coefficient of Variation 13.5 % Immature Granulocyte % (Auto) 0.2 % Immature Granulocyte # (Auto) 0.01 K/uL Prothrombin Time 26.3 SECONDS Prothromb Time International Ratio 2.4 Sodium Level 127 mmol/L 126 mmol/L Potassium Level 4.3 mmol/L 3.9 mmol/L Chloride Level 92 mmol/L 91 mmol/L Carbon Dioxide Level 26 mmol/L 28 mmol/L Anion Gap 9.0 mmol/L 7.0 mmol/L Blood Urea Nitrogen 37 mg/dl 34 mg/dl Creatinine 0.95 mg/dl 1.00 mg/dl Est Creatinine Clear Calc Drug Dose 35.5 ml/min 33.7 ml/min Estimated GFR () 61.5 57.8 Estimated GFR (Non- 53.1 49.9 BUN/Creatinine Ratio 38.7 33.6 Random Glucose 95 mg/dl 114 mg/dl Calcium Level 8.7 mg/dl 8.8 mg/dl Assessment and Plan 89 y/o F with Hx chronic AF, pacer in situ for complete heart block, HTN, mild , Pulm HTN, chronic diastolic CHF recently admitted for exacerbation, Sarcoidosis (1972 dxd with lymph node biopsy through thoracotomy?), GERD, OA, CKD stage IIIA, - has had some difficulty managing her volume status without a high dose of diuretics. She has had recent increases in her diuretic dosing: last week switched from lasix to bumex, then added metolazone every other day which really helped her leg swelling however she started feeling lightheaded and weak 3 days ago and was barely able to ambulate - labs were obtained by her MD on day of admission revealing severe electrolyte abnormalities including hyponatremia, hypokalemia and hypochloremia. 1) Hyponatremia, hyopkalemia: secondary to diuretics , CKD stage IIIA- Pt's initial Na = 118 and K = 2.8 - Chloride is low as well.Spring Maker stable at 1.0 Hypoosmolar hyponatremia due to thiazide diuretic use and clinical dehydration. Still with edema and crackles on exam but volume contracted. TSH normal, Urine Osm low Na+ from 118--> 124 in 24 hrs--> 127 in 48 hrs -received NS 150ml/hr x 2 days then stopped -now on NaCl tabs 2 grams bid -started Bumex 1 mg daily on 08/22 -replace K+ prn - Nephrology consulted and appreciated -no more thiazides in the future, Nephro recommends loop diuretic bid eventually once Na+ normalizes -PRP q12 - she will be monitored on telemetry. - ACEI have been held -Cardiology consult to her primary Dr. Huber placed and appreciated -PT/OT consult for weakness-pt too tired to participate today 2) Chronic Diastolic CHF, Pulm HTN, Pacer in situ, h/o Sarcoidosis (cardiac sarcoid?), calcified MV, mild - recent admit for exacerbation / pulmonary edema - will require volume status monitoring and continuous oximetry - Bumex restarted today 1mg daily -daily weights, I/Os -consult Cardiology as above for further management -remains in paced rhythm 3) HTN -stopped amlodipine, ACEI 4) Chronic AF - paced rhythm - INR 3.5 on admission, now 2.7 - cont Coumadin at lower dose Proph: coumadin, PPI Dispo- DNR
[2016-08-22] MEDS: WARFARIN SOD 1 MG TAB PO SCH (17:05)
[2016-08-22] MEDS: CEFTRIAXONE SOD INJ 1 GM in DEXTROSE 5% ADD-VANTAGE 50ML 50 ML IV SCH (17:54)
[2016-08-22] MEDS: ARTIFICIAL TEARS OP SOLN OPB SCH ×2 (19:21)
[2016-08-22] MEDS: SODIUM CHLORIDE 1 GM TAB PO SCH (19:22)
[2016-08-22] MEDS: SIMVASTATIN 5 MG TAB PO SCH (19:22)
[2016-08-23] VITALS (8 sets, daily range): BP systolic 111–135; BP diastolic 64–82; PULSE 60–71; TEMP 36.2–36.7; O2SAT 92–96
[2016-08-23 06:31] LABS: BASO % 0.5 %; BASO ABS # 0.03 K/uL (0-0.2); COMPLETE YES; EOS % 1.1 %; HEMATOCRIT 26.9 % (37-47); IG% 0.2 %; LYMPH ABS # 1.27 K/uL (1.2-3.4); MEAN CELL VOLUME 93.1 fL (80-100); MEAN CORPUSCULAR HEMOGLOBIN 32.5 pg (25-34); MEAN CORPUSCULAR HGB CONC 34.9 g/dl (32-36); MEAN PLATELET VOLUME 9.8 fL (7.4-10.4); MONO % 11.6 %; NEUT % 63.6 %; PLATELET COUNT 207 K/uL (130-400); RED BLOOD COUNT 2.89 M/uL (4.2-5.4); WHITE BLOOD COUNT 5.53 K/uL (4.8-10.8)
[2016-08-23 06:37] LABS: PROTHROMBIN TIME (PATIENT) 22.3 SECONDS (9.0-12.0)
[2016-08-23 07:02] LABS: BUN/CREATININE RATIO 33.8 (10-20); CALCIUM 8.8 mg/dl (8.5-10.1); CREATININE 0.94 mg/dl (0.60-1.20); MAGNESIUM 1.9 mg/dl (1.8-2.4); POTASSIUM 3.9 mmol/L (3.5-5.1)
[2016-08-23] MEDS ORDERED: POTASSIUM CHLORIDE 10 MEQ TABCR PO STA (07:22)
[2016-08-23] MEDS ORDERED: MAGNESIUM SULFATE 1GM / D5W 1 GM in PREMIXED IN D5W 100 ML IV SCH (08:00)
[2016-08-23] MEDS: CALCIUM 600MG + VIT D 400 IU TAB PO SCH (08:47)
[2016-08-23] MEDS: LACTOBACILLUS ACIDOPHILUS (FLORANEX) TAB PO SCH (08:48)
[2016-08-23] MEDS: GABAPENTIN 300 MG CAP PO SCH ×2 (08:48→20:46)
[2016-08-23] MEDS: CYANOCOBALAMIN 500 MCG TAB (VIT B-12) PO SCH (08:48)
[2016-08-23] MEDS: TRIAMCINOLONE ACET 0.5% CR 15 GM TUBE EXT SCH ×2 (08:49→21:00)
[2016-08-23] MEDS ORDERED: SODIUM CHLORIDE 1 GM TAB PO ONE (08:53)
[2016-08-23] MEDS: PANTOprazole SOD 40 MG TAB PO SCH ×2 (09:00→20:45)
[2016-08-23] MEDS: BUMETANIDE 1 MG TAB PO SCH ×2 (09:00→17:05)
[2016-08-23] MEDS ORDERED: BUMETANIDE 1 MG TAB PO SCH (09:00)
--- NOTE | 2016-08-23 09:06 | Nephrology Progress Note ---
Nephrology Progress Note Date of Service Aug 23, 2016. Chief Complaint Evaluation of hyponatremia Subjective Ms. Akhtar was seen & examined in her hospital room this morning. She complains of weakness and feels that her lower extremity swelling is worse. The patient has hyponatremia. She was clinically volume contracted upon admission. She has been rehydrated and is now euvolemic. Serum sodium has almost fully corrected. Ms. Akhtar has chronic atrial fibrillation and a h/o diastolic CHF. She currently denies palpitations or angina. Review of Systems Constitutional: No fever Cardiovascular: No chest pain Respiratory: No dyspnea at rest Abdomen: No pain Extremities: + leg edema A complete review of systems was performed. Pertinent positives are noted above. All other systems are negative. Vital Signs Last 8 Hrs Date Time Temp Pulse Resp B/P Pulse Ox O2 Delivery O2 Flow Rate FiO2 08/23/16 07:47 36.5 70 20 115/72 93 Nasal Cannula 3.0 08/23/16 04:54 36.6 70 20 115/70 94 Nasal Cannula 2.0 08/23/16 04:00 Nasal Cannula 2.0 08/23/16 01:37 36.6 70 20 124/73 92 Nasal Cannula 2.0 I & O 24-Hour Column 08/23/16 08:00 Intake Total 500 ml Output Total 1025 ml Balance -525 ml Last Recorded Weight Weight (Kilograms): 77.300 Physical Exam General Appearance: no apparent distress Head: atraumatic Eyes: PERRL, EOMI Neck: no adenopathy Respiratory/Chest: + crackles Cardiovascular: regular rate, rhythm Abdomen/GI: normal bowel sounds, non tender, soft Extremities/Musculoskelatal: + swelling (1+ pretibial pitting edema) Neurologic/Psych: alert, oriented x 3 Family History Diabetes mellitus Negative for CKD/ESRD Social History Smoking Status: Never smoker Alcohol Use: none Drug Use: none Marital Status: Occupation: retired . Retired. Never a smoker. Denies alcohol use. Laboratory Results Past 24 Hours 08/23/16 06:04 Red Blood Count 2.89, Mean Corpuscular Volume 93.1, Mean Corpuscular Hemoglobin 32.5, Mean Corpuscular Hemoglobin Concent 34.9, Mean Platelet Volume 9.8, Neutrophils (%) (Auto) 63.6, Lymphocytes (%) (Auto) 23.0, Monocytes (%) (Auto) 11.6, Eosinophils (%) (Auto) 1.1, Basophils (%) (Auto) 0.5, Neutrophils # (Auto ) 3.52, Lymphocytes # (Auto) 1.27, Monocytes # (Auto) 0.64, Eosinophils # (Auto ) 0.06, Basophils # (Auto) 0.03 08/22/16 15:55 08/23/16 06:04 Test 08/22/16 15:55 08/22/16 17:00 08/22/16 18:30 08/23/16 06:04 Anion Gap 7.0 mmol/L (3-11) 13.0 mmol/L (3-11) Est Creatinine Clear Calc Drug Dose 33.7 ml/min 35.8 ml/min Estimated GFR () 57.8 62.3 Estimated GFR (Non- 49.9 53.8 BUN/Creatinine Ratio 33.6 (10-20) 33.8 (10-20) Calcium Level 8.8 mg/dl (8.5-10.1) 8.8 mg/dl (8.5-10.1) Vitamin B12 Level > 2000 pg/mL (211-911) Folate 23.01 ng/mL (>5.38) Urine Osmolality 278 mOms/kg (500-800) White Blood Count 5.53 K/uL (4.8-10.8) Red Blood Count 2.89 M/uL (4.2-5.4) Hemoglobin 9.4 g/dL (12.0-16.0) Hematocrit 26.9 % (37-47) Mean Corpuscular Volume 93.1 fL (80-100) Mean Corpuscular Hemoglobin 32.5 pg (25-34) Mean Corpuscular Hemoglobin Concent 34.9 g/dl (32-36) Platelet Count 207 K/uL (130-400) Mean Platelet Volume 9.8 fL (7.4-10.4) Neutrophils (%) (Auto) 63.6 % Lymphocytes (%) (Auto) 23.0 % Monocytes (%) (Auto) 11.6 % Eosinophils (%) (Auto) 1.1 % Basophils (%) (Auto) 0.5 % Neutrophils # (Auto) 3.52 K/uL (1.4-6.5) Lymphocytes # (Auto) 1.27 K/uL (1.2-3.4) Monocytes # (Auto) 0.64 K/uL (0.11-0.59) Eosinophils # (Auto) 0.06 K/uL (0-0.5) Basophils # (Auto) 0.03 K/uL (0-0.2) RDW Standard Deviation 46.1 fL (36.4-46.3) RDW Coefficient of Variation 13.5 % (11.5-14.5) Immature Granulocyte % (Auto) 0.2 % Immature Granulocyte # (Auto) 0.01 K/uL (0.00-0.02) Prothrombin Time 22.3 SECONDS (9.0-12.0) Prothromb Time International Ratio 2.0 (0.9-1.1) Magnesium Level 1.9 mg/dl (1.8-2.4) Total Bilirubin 0.5 mg/dl (0.2-1) Direct Bilirubin 0.2 mg/dl (0-0.2) Aspartate Amino Transf (AST/SGOT) 27 U/L (15-37) Alanine Aminotransferase (ALT/SGPT) 25 U/L (12-78) Alkaline Phosphatase 50 U/L (45-117) Total Protein 5.8 gm/dl (6.4-8.2) Albumin 3.0 gm/dl (3.4-5.0) Allergies Coded Allergies: Morphine (Verified Allergy, Unknown, swelling, 07/23/16) Phenobarbital (Unverified Allergy, Unknown, ITCHINESS, 07/23/16) Medications Current Inpatient Medications Medications (Trade) Dose Ordered Sig/Naren Route Start Time Stop Time Status Last Admin Dose Admin Calcium/Vitamin D (Caltrate Plus Tab) 1 tab DAILY PO 08/20/16 09:00 09/19/16 08:59 08/23/16 08:47 1 TAB Cetirizine HCl (zyrTEC TAB) 10 mg DAILY PRN PO 08/19/16 22:45 09/18/16 22:44 08/20/16 08:00 10 MG Cyanocobalamin (Vitamin B-12 Tab) 2,000 mcg DAILY PO 08/20/16 09:00 09/19/16 08:59 08/23/16 08:48 2,000 MCG Gabapentin (Neurontin Cap) 300 mg BID PO 08/20/16 09:00 09/19/16 08:59 08/23/16 08:48 300 MG Acetaminophen/ Hydrocodone Bitart ([place] 5/325 Tab) 1 tab Q6H PRN PO 08/19/16 22:45 09/02/16 22:44 08/22/16 19:11 1 TAB Lorazepam (Ativan Tab) 0.5 mg HS PRN PO 08/19/16 22:45 09/18/16 22:44 Simvastatin (Zocor Tab) 5 mg QPM PO 08/20/16 21:00 09/19/16 20:59 08/22/16 19:22 5 MG Triamcinolone Acetonide (Kenalog 0.5% Crm) 1 appln BID EXT 08/20/16 09:00 09/19/16 08:59 08/23/16 08:49 1 APPLN Warfarin Sodium (Coumadin Tab) 1 mg SuWeThFrSa@1600 PO 08/20/16 16:00 08/23/16 15:30 08/22/16 17:05 1 MG Pantoprazole Sodium (Protonix Tab) 40 mg BID PO 08/20/16 09:00 09/19/16 08:59 08/22/16 19:22 40 MG Artificial Tears (Artificial Tears) 1 drops HS OPB 08/20/16 21:00 09/19/16 20:59 08/22/16 19:21 1 DROPS Lactobacillus Acidophilus (Floranex Tab) 4 tab DAILY PO 08/20/16 09:00 09/19/16 08:59 08/23/16 08:48 4 TAB Acetaminophen (Tylenol Tab) 650 mg Q4H PRN PO 08/19/16 22:45 09/18/16 22:44 08/22/16 14:16 650 MG Magnesium Hydroxide (Milk Of Magnesia Susp) 30 ml Q12H PRN PO 08/19/16 22:45 09/18/16 22:44 Ondansetron HCl (Zofran Inj) 4 mg Q6H PRN IV 08/19/16 22:45 09/18/16 22:44 08/22/16 19:49 4 MG Polyethylene (Miralax Powder Packet) 17 gm DAILY PRN PO 08/19/16 22:45 09/18/16 22:44 08/20/16 08:09 17 GM Sodium Chloride (Sodium Chloride Tab) 2 gm BID PO 08/22/16 21:00 08/23/16 20:59 08/22/16 19:22 2 GM Bumetanide 1 mg 1 mg QAM PO 08/23/16 09:00 09/22/16 08:59 08/23/16 08:48 1 MG Iron Sucrose 100 mg/Sodium Chloride 105 ml @ 420 mls/hr DAILY@0900 IV 08/22/16 11:30 08/31/16 09:14 08/22/16 11:32 420 MLS/HR Ceftriaxone Sodium/Dextrose (Rocephin Inj/ Dextrose Add-[place] 50ML) 50 ml @ 100 mls/hr DAILY@1700 IV 08/22/16 17:00 08/27/16 16:59 08/22/16 17:54 100 MLS/HR Warfarin Sodium 2 mg 2 mg DAILY@1600 PO 08/23/16 16:00 09/22/16 15:59 Magnesium Sulfate/ Prmx (Magnesium Sulfate/Premixed D5W) 100 ml @ 100 mls/hr 0800 IV 08/23/16 08:00 08/23/16 08:59 08/23/16 08:17 100 MLS/HR Impression (1) Hyponatremia (2) Dehydration (3) Hypotension arterial (4) Atrial fibrillation (5) Chronic diastolic CHF (congestive heart failure) (6) Generalized weakness Patient admitted to the hospital for evaluation of hyponatremia. She has chronic diastolic CHF. Recently her diuretic regimen was adjusted and she was started on a thiazide in addition to her loop diuretic. Patient has experienced a brisk diuresis. Her lower extremity edema has markedly improved but she has become progressively weak. She reports orthostasis and lower extremity muscle cramping. Serum sodium has dropped to 119 mg/dl. Urine osmolality remains relatively low. Patient is clinically volume contracted. She has hypoosmolar hyponatremia due to thiazide diuretic use and clinical dehydration. Patient has no neurologic symptoms other than weakness. PMH - chronic atrial fibrillation, complete heart block requiring dual chamber pacemaker 2012, moderate MR, chronic diastolic heart failure, chronic venous insufficiency, GERD, OA, C. Difficile colitis and CKD w/ baseline creatinine 1.0 (EGFR 51 cc/min) Recommendations HYPONATREMIA: -- Improved. Patient appears euvolemic. -- Will provide oral NaCl today and resume BID Bumetanide -- Monitor serial PRP -- TSH was checked and found to be within normal limits. Patient is clinically euthyroid HYPOTENSION: -- Resolved. Patient is now clinically euvolemic DIASTOLIC CHF: -- Avoid thiazide diuretic in the future -- May benefit from BID loop diuretic therapy as outpatient once serum sodium has normalized CHRONIC KIDNEY DISEASE: -- Baseline creatinine has been 1.0 w/ EGFR 51 cc/min -- Urine sediment is acellular. Urinary protein is negative by dipstick -- Will obtain renal US only if kidney function declines ANEMIA: -- FOBT x 1 is negative -- Iron stores are low -- Continue IV venofer 1 g daily x 10 doses
[2016-08-23] MEDS: SODIUM CHLORIDE 1 GM TAB PO SCH (12:15)
[2016-08-23] MEDS: IRON SUCROSE INJ 100 MG in SODIUM CHLORIDE 0.9% 100ML 100 ML IV SCH (12:16)
--- NOTE | 2016-08-23 14:15 | Hospitalist Progress Note ---
Hospitalist Progress Note Date of Service Aug 23, 2016. Subjective Pt evaluation today including: conversation w/ patient, conversation w/ family , physical exam, chart review, lab review, review of studies, review of inpatient medication list PO Intake: Apple po Voiding: no voiding problems Sodium improving, feeling stronger, walked hallways today and did ok. Constitutional: No fever Eyes: No problem reported Respiratory: + dyspnea on exertion Cardiovascular: No chest pain Abdomen: No constipation, No diarrhea, No nausea, No pain All Other Systems: Reviewed and Negative Objective Vital Signs Date Time Temp Pulse Resp B/P Pulse Ox O2 Delivery O2 Flow Rate FiO2 08/23/16 13:32 60 94 08/23/16 12:13 36.3 70 20 111/64 94 Nasal Cannula 3.0 08/23/16 08:00 Nasal Cannula 2.0 08/23/16 07:47 36.5 70 20 115/72 93 Nasal Cannula 3.0 08/23/16 04:54 36.6 70 20 115/70 94 Nasal Cannula 2.0 08/23/16 04:00 Nasal Cannula 2.0 08/23/16 01:37 36.6 70 20 124/73 92 Nasal Cannula 2.0 08/23/16 00:00 Nasal Cannula 2.0 08/22/16 20:00 94 Nasal Cannula 2.0 08/22/16 19:54 36.3 71 20 131/77 94 Nasal Cannula 2.0 08/22/16 16:00 96 Nasal Cannula 2.0 08/22/16 15:14 36.3 70 20 115/69 96 Physical Exam General Appearance: WD/WN, no apparent distress Eyes: normal inspection, sclerae normal Neck: trachea midline Respiratory/Chest: no respiratory distress, no accessory muscle use, + crackles (at bases) Cardiovascular: regular rate, rhythm, no murmur, + pertinent finding (2+ pitting edema LEs bilat to knees) Abdomen: normal bowel sounds, non tender, soft (and obese) Extremities: no calf tenderness Neurologic/Psychiatric: alert, normal mood/affect, oriented x 3 Skin: normal color, warm/dry, no rash Laboratory Results Last 24 Hours Test 08/22/16 15:55 08/22/16 17:00 08/22/16 18:30 08/23/16 00:00 Sodium Level 126 mmol/L Potassium Level 3.9 mmol/L Chloride Level 91 mmol/L Carbon Dioxide Level 28 mmol/L Anion Gap 7.0 mmol/L Blood Urea Nitrogen 34 mg/dl Creatinine 1.00 mg/dl Est Creatinine Clear Calc Drug Dose 33.7 ml/min Estimated GFR () 57.8 Estimated GFR (Non- 49.9 BUN/Creatinine Ratio 33.6 Random Glucose 114 mg/dl Calcium Level 8.8 mg/dl Vitamin B12 Level > 2000 pg/mL Folate 23.01 ng/mL Urine Osmolality 278 mOms/kg 275 mOms/kg Test 08/23/16 06:04 White Blood Count 5.53 K/uL Red Blood Count 2.89 M/uL Hemoglobin 9.4 g/dL Hematocrit 26.9 % Mean Corpuscular Volume 93.1 fL Mean Corpuscular Hemoglobin 32.5 pg Mean Corpuscular Hemoglobin Concent 34.9 g/dl Platelet Count 207 K/uL Mean Platelet Volume 9.8 fL Neutrophils (%) (Auto) 63.6 % Lymphocytes (%) (Auto) 23.0 % Monocytes (%) (Auto) 11.6 % Eosinophils (%) (Auto) 1.1 % Basophils (%) (Auto) 0.5 % Neutrophils # (Auto) 3.52 K/uL Lymphocytes # (Auto) 1.27 K/uL Monocytes # (Auto) 0.64 K/uL Eosinophils # (Auto) 0.06 K/uL Basophils # (Auto) 0.03 K/uL RDW Standard Deviation 46.1 fL RDW Coefficient of Variation 13.5 % Immature Granulocyte % (Auto) 0.2 % Immature Granulocyte # (Auto) 0.01 K/uL Prothrombin Time 22.3 SECONDS Prothromb Time International Ratio 2.0 Sodium Level 131 mmol/L Potassium Level 3.9 mmol/L Chloride Level 93 mmol/L Carbon Dioxide Level 25 mmol/L Anion Gap 13.0 mmol/L Blood Urea Nitrogen 32 mg/dl Creatinine 0.94 mg/dl Est Creatinine Clear Calc Drug Dose 35.8 ml/min Estimated GFR () 62.3 Estimated GFR (Non- 53.8 BUN/Creatinine Ratio 33.8 Random Glucose 98 mg/dl Calcium Level 8.8 mg/dl Magnesium Level 1.9 mg/dl Total Bilirubin 0.5 mg/dl Direct Bilirubin 0.2 mg/dl Aspartate Amino Transf (AST/SGOT) 27 U/L Alanine Aminotransferase (ALT/SGPT) 25 U/L Alkaline Phosphatase 50 U/L Total Protein 5.8 gm/dl Albumin 3.0 gm/dl Assessment and Plan 89 y/o F with Hx chronic AF, pacer in situ for complete heart block, HTN, mild , Pulm HTN, chronic diastolic CHF recently admitted for exacerbation, Sarcoidosis (1972 dxd with lymph node biopsy through thoracotomy?), GERD, OA, CKD stage IIIA, - has had some difficulty managing her volume status without a high dose of diuretics. She has had recent increases in her diuretic dosing: last week switched from lasix to bumex, then added metolazone every other day which really helped her leg swelling however she started feeling lightheaded and weak 3 days ago and was barely able to ambulate - labs were obtained by her MD on day of admission revealing severe electrolyte abnormalities including hyponatremia, hypokalemia and hypochloremia. 1) Hyponatremia, hyopkalemia: secondary to diuretics , CKD stage IIIA- Pt's initial Na = 118 and K = 2.8 - Chloride is low as well.Java [id number] Lead stable at 1.0 Hypoosmolar hyponatremia due to thiazide diuretic use and clinical dehydration. Still with edema and crackles on exam but now euvolemic TSH normal, Urine Osm low Na+ from 118--> 124 in 24 hrs--> 127 in 48 hrs--> 131 today -received NS 150ml/hr x 2 days then stopped -now on NaCl tabs 2 grams bid -increased Bumex 1 mg bid today by Nephro -replace K+ prn - Nephrology consulted and appreciated -no more thiazides in the future, Nephro recommends loop diuretic bid eventually once Na+ normalizes -check PRP tomorrow - she will be monitored on telemetry. - ACEI have been held -Cardiology consult to her primary Dr. Huber placed and appreciated -PT/OT recommends return home with home PT, family assistance 2) Chronic Diastolic CHF, Pulm HTN, Pacer in situ, h/o Sarcoidosis (cardiac sarcoid?), calcified MV, mild - recent admit for exacerbation / pulmonary edema - will require volume status monitoring and continuous oximetry - Bumex restarted and increased today to 1mg bid -daily weights, I/Os -consult Cardiology as above for further management -remains in paced rhythm 3) HTN -stopped amlodipine, ACEI 4) Chronic AF - paced rhythm - INR 3.5 on admission, now 2.0 - cont Coumadin and increase dose back to 2mg today 5) Anemia-Fe deficiency and of CKD-hgb 9-10, Fe sat low, hemoccult neg x 1 -replacing IV Fe -follow CBC 6) UTI-gamma strep on Ur cx > 100k -continue Rocephin today and then transition to po keflex tomrorow Proph: coumadin, PPI Dispo- DNR
[2016-08-23] MEDS: WARFARIN SOD 2 MG TAB PO SCH (15:50)
[2016-08-23] MEDS: CEFTRIAXONE SOD INJ 1 GM in DEXTROSE 5% ADD-VANTAGE 50ML 50 ML IV SCH (17:04)
[2016-08-23] MEDS: LORAZEPAM 0.5 MG TAB PO PRN (20:43)
[2016-08-23] MEDS: HYDROCODONE/ACETAMOPHEN 5/325MG TAB PO PRN (20:44)
[2016-08-23] MEDS: SIMVASTATIN 5 MG TAB PO SCH (20:50)
[2016-08-23] MEDS: ARTIFICIAL TEARS OP SOLN OPB SCH ×2 (20:50)
[2016-08-23] MEDS ORDERED: SODIUM CHLORIDE 1 GM TAB PO SCH (21:00)
[2016-08-24 04:00] VITALS: BP 129/82; PULSE 75; TEMP 36.8; O2SAT 92
[2016-08-24 06:25] LABS: BASO % 0.5 %; BASO ABS # 0.03 K/uL (0-0.2); COMPLETE YES; EOS % 2.2 %; HEMATOCRIT 27.6 % (37-47); IG% 0.2 %; LYMPH % 13.7 %; LYMPH ABS # 0.75 K/uL (1.2-3.4); MEAN CELL VOLUME 96.2 fL (80-100); MEAN CORPUSCULAR HEMOGLOBIN 32.1 pg (25-34); MEAN CORPUSCULAR HGB CONC 33.3 g/dl (32-36); MONO % 15.8 %; NEUT % 67.6 %; PLATELET COUNT 200 K/uL (130-400); RED BLOOD COUNT 2.87 M/uL (4.2-5.4); WHITE BLOOD COUNT 5.46 K/uL (4.8-10.8)
[2016-08-24 06:52] LABS: BUN/CREATININE RATIO 34.5 (10-20); CALCIUM 8.3 mg/dl (8.5-10.1); CREATININE 0.84 mg/dl (0.60-1.20); POTASSIUM 3.4 mmol/L (3.5-5.1)
[2016-08-24] MEDS ORDERED: POTASSIUM CHLORIDE 10 MEQ TABCR PO STA (07:31)
[2016-08-24 07:43] VITALS: BP 149/84; PULSE 70; TEMP 36.4; O2SAT 90
[2016-08-24] MEDS: TRIAMCINOLONE ACET 0.5% CR 15 GM TUBE EXT SCH ×2 (08:20→20:40)
[2016-08-24] MEDS: IRON SUCROSE INJ 100 MG in SODIUM CHLORIDE 0.9% 100ML 100 ML IV SCH (08:20)
[2016-08-24] MEDS: PANTOprazole SOD 40 MG TAB PO SCH ×2 (08:21→20:31)
[2016-08-24] MEDS: POLYETHYLENE (MIRALAX) 17 GM PACK PO PRN ×2 (08:21→20:33)
[2016-08-24] MEDS: CYANOCOBALAMIN 500 MCG TAB (VIT B-12) PO SCH (08:21)
[2016-08-24] MEDS: LACTOBACILLUS ACIDOPHILUS (FLORANEX) TAB PO SCH (08:21)
[2016-08-24] MEDS: CALCIUM 600MG + VIT D 400 IU TAB PO SCH (08:21)
[2016-08-24] MEDS: GABAPENTIN 300 MG CAP PO SCH ×2 (08:21→20:31)
[2016-08-24] MEDS: BUMETANIDE 1 MG TAB PO SCH ×2 (08:22→15:57)
[2016-08-24 09:51] LABS: INR 1.6 (0.9-1.1); PROTHROMBIN TIME (PATIENT) 17.7 SECONDS (9.0-12.0)
--- NOTE | 2016-08-24 10:41 | Nephrology Progress Note ---
Nephrology Progress Note Date of Service Aug 24, 2016. Chief Complaint Evaluation of hyponatremia Subjective Ms. Akhtar was seen & examined in her hospital room this morning. She complains of weakness but is anxious to sit up in a chair today and walk in the hallway with assistance. The patient was admitted w/ hyponatremia. She was clinically volume contracted upon admission. She has been rehydrated and is now euvolemic. Serum sodium has corrected. Ms. Akhtar has chronic atrial fibrillation and a h/o diastolic CHF. She currently denies palpitations, angina or dyspnea. Review of Systems Constitutional: No fever Cardiovascular: No angina Respiratory: No dyspnea at rest Abdomen: No pain Extremities: + leg edema A complete review of systems was performed. Pertinent positives are noted above. All other systems are negative. Vital Signs Last 8 Hrs Date Time Temp Pulse Resp B/P Pulse Ox O2 Delivery O2 Flow Rate FiO2 08/24/16 08:00 Nasal Cannula 2.0 08/24/16 07:43 36.4 70 20 149/84 90 Nasal Cannula 2.0 08/24/16 04:00 36.8 75 20 129/82 92 3.5 08/24/16 04:00 Nasal Cannula 2.0 I & O 24-Hour Column 08/24/16 08:00 Intake Total 1675 ml Output Total 1050 ml Balance 625 ml Last Recorded Weight Weight (Kilograms): 79.000 Physical Exam General Appearance: no apparent distress Head: normocephalic, atraumatic Eyes: PERRL, EOMI Neck: no adenopathy Respiratory/Chest: lungs clear, no respiratory distress Cardiovascular: regular rate, rhythm Abdomen/GI: non tender, soft Extremities/Musculoskelatal: no calf tenderness, + swelling (2+ pretibial edema ) Neurologic/Psych: alert, oriented x 3 Family History Diabetes mellitus Negative for CKD/ESRD Social History Smoking Status: Never smoker Alcohol Use: none Drug Use: none Marital Status: Occupation: retired . Retired. Never a smoker. Denies alcohol use. Laboratory Results Past 24 Hours 08/24/16 06:00 Red Blood Count 2.87, Mean Corpuscular Volume 96.2, Mean Corpuscular Hemoglobin 32.1, Mean Corpuscular Hemoglobin Concent 33.3, Mean Platelet Volume 10.0, Neutrophils (%) (Auto) 67.6, Lymphocytes (%) (Auto) 13.7, Monocytes (%) (Auto) 15.8, Eosinophils (%) (Auto) 2.2, Basophils (%) (Auto) 0.5, Neutrophils # (Auto ) 3.69, Lymphocytes # (Auto) 0.75, Monocytes # (Auto) 0.86, Eosinophils # (Auto ) 0.12, Basophils # (Auto) 0.03 08/24/16 06:00 Test 08/24/16 06:00 08/24/16 09:30 White Blood Count 5.46 K/uL (4.8-10.8) Red Blood Count 2.87 M/uL (4.2-5.4) Hemoglobin 9.2 g/dL (12.0-16.0) Hematocrit 27.6 % (37-47) Mean Corpuscular Volume 96.2 fL (80-100) Mean Corpuscular Hemoglobin 32.1 pg (25-34) Mean Corpuscular Hemoglobin Concent 33.3 g/dl (32-36) Platelet Count 200 K/uL (130-400) Mean Platelet Volume 10.0 fL (7.4-10.4) Neutrophils (%) (Auto) 67.6 % Lymphocytes (%) (Auto) 13.7 % Monocytes (%) (Auto) 15.8 % Eosinophils (%) (Auto) 2.2 % Basophils (%) (Auto) 0.5 % Neutrophils # (Auto) 3.69 K/uL (1.4-6.5) Lymphocytes # (Auto) 0.75 K/uL (1.2-3.4) Monocytes # (Auto) 0.86 K/uL (0.11-0.59) Eosinophils # (Auto) 0.12 K/uL (0-0.5) Basophils # (Auto) 0.03 K/uL (0-0.2) RDW Standard Deviation 48.4 fL (36.4-46.3) RDW Coefficient of Variation 13.7 % (11.5-14.5) Immature Granulocyte % (Auto) 0.2 % Immature Granulocyte # (Auto) 0.01 K/uL (0.00-0.02) Anion Gap 9.0 mmol/L (3-11) Est Creatinine Clear Calc Drug Dose 39.7 ml/min Estimated GFR () 71.4 Estimated GFR (Non- 61.6 BUN/Creatinine Ratio 34.5 (10-20) Calcium Level 8.3 mg/dl (8.5-10.1) Prothrombin Time 17.7 SECONDS (9.0-12.0) Prothromb Time International Ratio 1.6 (0.9-1.1) Allergies Coded Allergies: Morphine (Verified Allergy, Unknown, swelling, 07/23/16) Phenobarbital (Unverified Allergy, Unknown, ITCHINESS, 07/23/16) Medications Current Inpatient Medications Medications (Trade) Dose Ordered Sig/Naren Route Start Time Stop Time Status Last Admin Dose Admin Calcium/Vitamin D (Caltrate Plus Tab) 1 tab DAILY PO 08/20/16 09:00 09/19/16 08:59 08/24/16 08:21 1 TAB Cetirizine HCl (zyrTEC TAB) 10 mg DAILY PRN PO 08/19/16 22:45 09/18/16 22:44 08/20/16 08:00 10 MG Cyanocobalamin (Vitamin B-12 Tab) 2,000 mcg DAILY PO 08/20/16 09:00 09/19/16 08:59 08/24/16 08:21 2,000 MCG Gabapentin (Neurontin Cap) 300 mg BID PO 08/20/16 09:00 09/19/16 08:59 08/24/16 08:21 300 MG Acetaminophen/ Hydrocodone Bitart ([place] 5/325 Tab) 1 tab Q6H PRN PO 08/19/16 22:45 09/02/16 22:44 08/23/16 20:44 1 TAB Lorazepam (Ativan Tab) 0.5 mg HS PRN PO 08/19/16 22:45 09/18/16 22:44 08/23/16 20:43 0.5 MG Simvastatin (Zocor Tab) 5 mg QPM PO 08/20/16 21:00 09/19/16 20:59 08/23/16 20:50 5 MG Triamcinolone Acetonide (Kenalog 0.5% Crm) 1 appln BID EXT 08/20/16 09:00 09/19/16 08:59 08/24/16 08:20 1 APPLN Pantoprazole Sodium (Protonix Tab) 40 mg BID PO 08/20/16 09:00 09/19/16 08:59 08/24/16 08:21 40 MG Artificial Tears (Artificial Tears) 1 drops HS OPB 08/20/16 21:00 09/19/16 20:59 08/23/16 20:50 1 DROPS Lactobacillus Acidophilus (Floranex Tab) 4 tab DAILY PO 08/20/16 09:00 09/19/16 08:59 08/24/16 08:21 4 TAB Acetaminophen (Tylenol Tab) 650 mg Q4H PRN PO 08/19/16 22:45 09/18/16 22:44 08/22/16 14:16 650 MG Magnesium Hydroxide (Milk Of Magnesia Susp) 30 ml Q12H PRN PO 08/19/16 22:45 09/18/16 22:44 Ondansetron HCl (Zofran Inj) 4 mg Q6H PRN IV 08/19/16 22:45 09/18/16 22:44 08/22/16 19:49 4 MG Polyethylene 17 gm 17 gm DAILY PRN PO 08/19/16 22:45 09/18/16 22:44 08/24/16 08:21 17 GM Iron Sucrose 100 mg/Sodium Chloride 105 ml @ 420 mls/hr DAILY@0900 IV 08/22/16 11:30 08/31/16 09:14 08/24/16 08:20 420 MLS/HR Ceftriaxone Sodium/Dextrose (Rocephin Inj/ Dextrose Add-[place] 50ML) 50 ml @ 100 mls/hr DAILY@1700 IV 08/22/16 17:00 08/27/16 16:59 08/23/16 17:04 100 MLS/HR Warfarin Sodium (Coumadin Tab) 2 mg DAILY@1600 PO 08/23/16 16:00 09/22/16 15:59 08/23/16 15:50 2 MG Bumetanide (Bumex Tab) 1 mg BID17 PO 08/23/16 09:00 09/22/16 08:59 08/24/16 08:22 1 MG Impression (1) Hyponatremia (2) Dehydration (3) Hypotension arterial (4) Atrial fibrillation (5) Chronic diastolic CHF (congestive heart failure) (6) Generalized weakness Patient admitted to the hospital for evaluation of hyponatremia. She has chronic diastolic CHF. Recently her diuretic regimen was adjusted and she was started on a thiazide in addition to her loop diuretic. Patient has experienced a brisk diuresis. Her lower extremity edema has markedly improved but she has become progressively weak. She developed orthostasis and lower extremity muscle cramping. Serum sodium dropped to 119 mg/dl. Urine osmolality remains relatively low. Patient was clinically volume contracted. She had hypoosmolar hyponatremia due to thiazide diuretic use and clinical dehydration. Patient has no neurologic symptoms other than weakness. PMH - chronic atrial fibrillation, complete heart block requiring dual chamber pacemaker 2012, moderate MR, chronic diastolic heart failure, chronic venous insufficiency, GERD, OA, C. Difficile colitis and CKD w/ baseline creatinine 1.0 (EGFR 51 cc/min) Recommendations HYPONATREMIA: -- Resolved. Patient appears euvolemic. -- Monitor serial PRP -- TSH was checked and found to be within normal limits. Patient is clinically euthyroid HYPOTENSION: -- Resolved. Patient is now clinically euvolemic DIASTOLIC CHF: -- Avoid thiazide diuretic in the future -- Continue Bumetanide 1 mg po BID -- Will supplement serum potassium today and check Mg in am -- Monitor I&O's and lower extremity edema CHRONIC KIDNEY DISEASE: -- Baseline creatinine has been 1.0 w/ EGFR 51 cc/min -- Urine sediment is acellular. Urinary protein is negative by dipstick -- Will obtain renal US only if kidney function declines ANEMIA: -- FOBT x 1 is negative -- Iron stores are low -- Continue IV venofer 1 g daily x 10 doses (today is day # 3)
[2016-08-24] MEDS ORDERED: ENOXAPARIN 1.5 MG/KG SQ ONE (11:16)
[2016-08-24 11:32] VITALS: BP 132/79; PULSE 77; TEMP 36.2; O2SAT 95
--- NOTE | 2016-08-24 11:44 | Hospitalist Progress Note ---
Hospitalist Progress Note Date of Service Aug 24, 2016. Subjective Pt evaluation today including: conversation w/ patient, conversation w/ family , physical exam, chart review, lab review, review of studies, review of inpatient medication list Voiding: no voiding problems Pt still feeling weak and tired today but improved slightly. Still SOB, leg swelling. Constitutional: No fever Respiratory: + dyspnea on exertion, + shortness of breath Cardiovascular: + edema, No chest pain Abdomen: No constipation, No diarrhea, No pain Skin: No rash Objective Vital Signs Date Time Temp Pulse Resp B/P Pulse Ox O2 Delivery O2 Flow Rate FiO2 08/24/16 11:32 36.2 77 18 132/79 95 Nasal Cannula 3.0 08/24/16 08:00 Nasal Cannula 2.0 08/24/16 07:43 36.4 70 20 149/84 90 Nasal Cannula 2.0 08/24/16 04:00 36.8 75 20 129/82 92 3.5 08/24/16 04:00 Nasal Cannula 2.0 08/24/16 00:00 Nasal Cannula 2.0 08/23/16 23:19 36.7 70 18 135/73 93 3.5 08/23/16 20:00 36.7 71 20 134/82 96 3.5 08/23/16 20:00 Nasal Cannula 2.0 08/23/16 16:34 36.2 70 20 124/78 94 Nasal Cannula 3.0 08/23/16 15:41 Nasal Cannula 2.0 08/23/16 13:32 60 94 08/23/16 12:13 36.3 70 20 111/64 94 Nasal Cannula 3.0 Physical Exam General Appearance: WD/WN, no apparent distress Eyes: normal inspection, sclerae normal Respiratory/Chest: no respiratory distress, no accessory muscle use, + crackles (at bases bilat) Cardiovascular: regular rate, rhythm, + systolic murmur (2/6 at LLSB), + pertinent finding (2-3+ pitting edema legs to thighs bilat) Abdomen: normal bowel sounds, non tender, soft (and obese) Extremities: no calf tenderness Neurologic/Psychiatric: alert, normal mood/affect, oriented x 3 Skin: normal color, warm/dry, no rash Laboratory Results Last 24 Hours Test 08/24/16 06:00 08/24/16 09:30 White Blood Count 5.46 K/uL Red Blood Count 2.87 M/uL Hemoglobin 9.2 g/dL Hematocrit 27.6 % Mean Corpuscular Volume 96.2 fL Mean Corpuscular Hemoglobin 32.1 pg Mean Corpuscular Hemoglobin Concent 33.3 g/dl Platelet Count 200 K/uL Mean Platelet Volume 10.0 fL Neutrophils (%) (Auto) 67.6 % Lymphocytes (%) (Auto) 13.7 % Monocytes (%) (Auto) 15.8 % Eosinophils (%) (Auto) 2.2 % Basophils (%) (Auto) 0.5 % Neutrophils # (Auto) 3.69 K/uL Lymphocytes # (Auto) 0.75 K/uL Monocytes # (Auto) 0.86 K/uL Eosinophils # (Auto) 0.12 K/uL Basophils # (Auto) 0.03 K/uL RDW Standard Deviation 48.4 fL RDW Coefficient of Variation 13.7 % Immature Granulocyte % (Auto) 0.2 % Immature Granulocyte # (Auto) 0.01 K/uL Sodium Level 136 mmol/L Potassium Level 3.4 mmol/L Chloride Level 98 mmol/L Carbon Dioxide Level 29 mmol/L Anion Gap 9.0 mmol/L Blood Urea Nitrogen 29 mg/dl Creatinine 0.84 mg/dl Est Creatinine Clear Calc Drug Dose 39.7 ml/min Estimated GFR () 71.4 Estimated GFR (Non- 61.6 BUN/Creatinine Ratio 34.5 Random Glucose 100 mg/dl Calcium Level 8.3 mg/dl Magnesium Level 1.9 mg/dl Prothrombin Time 17.7 SECONDS Prothromb Time International Ratio 1.6 Assessment and Plan 89 y/o F with Hx chronic AF, pacer in situ for complete heart block, HTN, mild , Pulm HTN, chronic diastolic CHF recently admitted for exacerbation, Sarcoidosis (1972 dxd with lymph node biopsy through thoracotomy?), GERD, OA, CKD stage IIIA, - has had some difficulty managing her volume status without a high dose of diuretics. 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 Still with edema and crackles on exam but now euvolemic TSH normal, Urine Osm low Na+ from 118--> 124 in 24 hrs--> 127 in 48 hrs--> 131-> 136 today K+ 3.4 Hyponatremia resolved but now fluid overloaded, crackles, edema, SOB -received NS 150ml/hr x 2 days then stopped -now on NaCl tabs 2 grams bid -restarted Bumex 1mg daily 08/22 and then increased to 1 mg bid on 08/23 by Nephro -replace K+ prn - Nephrology consulted and appreciated -no more thiazides in the future recommended -follow PRP - ACEI have been held -Cardiology consult to her primary Dr. Huber placed and appreciated -PT/OT recommends return home with home PT, family assistance vs Acute rehab? 2) Chronic Diastolic CHF, Pulm HTN, Pacer in situ, h/o Sarcoidosis (cardiac sarcoid?), calcified MV, mild - recent admit for exacerbation / pulmonary edema - Bumex restarted and increased to 1mg bid -daily weights, I/Os -consult Cardiology as above for further management -remains in paced rhythm 3) HTN -stopped amlodipine, ACEI 4) Chronic AF - paced rhythm - INR 3.5 on admission, now 1.6. No h/o CVA but is chronic AF - cont Coumadin and increased dose back to 2mg -bridge with Lovenox 1.5mg/kg once daily until INR therapeutic 5) Anemia-Fe deficiency and of CKD-hgb 9-10, Fe sat low, hemoccult neg x 1 -replacing IV Fe x 10 doses (has received 3 here) -follow CBC 6) UTI-gamma strep on Ur cx > 100k, probably asymptomatic bacteriuria however did have some encephalopathy on admission, combo of hyponatremia and UTI. -received Rocephin 2 days and then transition to po keflex today Proph: coumadin, Lovenox, PPI Dispo- DNR
[2016-08-24] MEDS ORDERED: MAGNESIUM SULFATE 1GM / D5W 1 GM in PREMIXED IN D5W 100 ML IV ONE (12:30)
[2016-08-24] MEDS ORDERED: WARFARIN SOD 2 MG TAB PO ONE (12:30)
[2016-08-24] MEDS ORDERED: ENOXAPARIN 80 MG/0.8 ML SYR SQ SCH (12:30)
[2016-08-24] MEDS: HYDROCODONE/ACETAMOPHEN 5/325MG TAB PO PRN ×2 (12:51→19:37)
[2016-08-24] MEDS: CEPHALEXIN MONOHYDRATE 500 MG CAP PO SCH (15:57)
[2016-08-24] MEDS: WARFARIN SOD 2 MG TAB PO SCH (15:57)
[2016-08-24 16:55] VITALS: BP 156/70; PULSE 70; TEMP 36.3; O2SAT 90
[2016-08-24 20:00] VITALS: BP 131/75; PULSE 70; TEMP 36.5; O2SAT 95
[2016-08-24] MEDS: SIMVASTATIN 5 MG TAB PO SCH (20:31)
[2016-08-24] MEDS: ARTIFICIAL TEARS OP SOLN OPB SCH ×2 (20:31)
[2016-08-24] MEDS: LORAZEPAM 0.5 MG TAB PO PRN (22:22)
[2016-08-24 23:57] VITALS: BP 125/78; PULSE 71; TEMP 36.6; O2SAT 95
[2016-08-25 04:27] VITALS: BP 139/78; PULSE 84; TEMP 36.6; O2SAT 94
[2016-08-25 06:36] LABS: BASO % 0.7 %; BASO ABS # 0.04 K/uL (0-0.2); COMPLETE YES; EOS % 4.4 %; HEMATOCRIT 29.3 % (37-47); IG% 0.2 %; LYMPH % 23.7 %; MEAN CELL VOLUME 96.7 fL (80-100); MEAN CORPUSCULAR HEMOGLOBIN 32.3 pg (25-34); MEAN CORPUSCULAR HGB CONC 33.4 g/dl (32-36); MEAN PLATELET VOLUME 9.7 fL (7.4-10.4); MONO % 11.5 %; NEUT % 59.5 %; PLATELET COUNT 216 K/uL (130-400); RED BLOOD COUNT 3.03 M/uL (4.2-5.4)
[2016-08-25 06:48] LABS: INR 1.8 (0.9-1.1); PROTHROMBIN TIME (PATIENT) 20.2 SECONDS (9.0-12.0)
[2016-08-25 07:03] LABS: BUN/CREATININE RATIO 27.1 (10-20); CALCIUM 8.6 mg/dl (8.5-10.1); CREATININE 0.87 mg/dl (0.60-1.20); POTASSIUM 3.8 mmol/L (3.5-5.1)
[2016-08-25 07:58] VITALS: BP 152/77; PULSE 70; TEMP 36.4; O2SAT 91
[2016-08-25] MEDS: CALCIUM 600MG + VIT D 400 IU TAB PO SCH (08:37)
[2016-08-25] MEDS: GABAPENTIN 300 MG CAP PO SCH (08:37)
[2016-08-25] MEDS: CYANOCOBALAMIN 500 MCG TAB (VIT B-12) PO SCH (08:37)
[2016-08-25] MEDS: LACTOBACILLUS ACIDOPHILUS (FLORANEX) TAB PO SCH (08:37)
[2016-08-25] MEDS: CETIRIZINE HCL 10 MG TAB PO PRN (08:38)
[2016-08-25] MEDS: BUMETANIDE 1 MG TAB PO SCH (08:38)
[2016-08-25] MEDS: PANTOprazole SOD 40 MG TAB PO SCH (08:38)
[2016-08-25] MEDS: CEPHALEXIN MONOHYDRATE 500 MG CAP PO SCH (08:38)
[2016-08-25] MEDS: IRON SUCROSE INJ 100 MG in SODIUM CHLORIDE 0.9% 100ML 100 ML IV SCH (08:38)
[2016-08-25] MEDS: TRIAMCINOLONE ACET 0.5% CR 15 GM TUBE EXT SCH (08:38)
[2016-08-25] MEDS: POLYETHYLENE (MIRALAX) 17 GM PACK PO PRN (08:44)
[2016-08-25] MEDS: HYDROCODONE/ACETAMOPHEN 5/325MG TAB PO PRN ×2 (08:45→16:08)
[2016-08-25] MEDS ORDERED: ENOXAPARIN 1.5 MG/KG SQ SCH (09:00)
[2016-08-25] MEDS ORDERED: KFL500 PO (09:47)
--- NOTE | 2016-08-25 09:52 | Discharge Instructions ---
Discharge Instructions Admission Reason for Admission: Hypokalemia, Hyponatremia Discharge Discharge Diagnosis / Problem: hyponatremia/hypokalemia (low sodium and potassium) from diuretics Discharge Goals Goal(s): Diagnostic testing, Therapeutic intervention Activity Recommendations Activity Limitations: resume your previous activity . Instructions / Follow-Up Instructions / Follow-Up your fluid balance is quite delicate - there's a narrow margin of error between "wet and dry" -- for now we'll have you on bumex 1mg twice a day, and hold off on the other diuretics. continue to weigh yourself daily, and continue to follow your symptoms closely. if weight goes up, or breathing/swelling get worse, they might need to (carefully) restart some of the other diuretics; this will be a "perpetual work in progress" part of this will be being seen in the office frequently - we'll start by having you see someone by the end of the week, and then again next week (we're getting things set up for Dr Carter and Dr Huber - one this week and the other the following - by the time your discharge is finalized, we should have dates/times booked for you). in addition to ongoing close clinical evaluations, we'll have to have frequent labwork done (the clinical evaluations - seeing how your breathing is, how you feel, daily weights etc - help protect you against "being too wet" but the labwork can catch "too dry" before you start to really notice it badly) -- in this respect, we'll want weekly BMP (labwork) in addition to your regular labs. we'll want your home nurses to recheck a BMP and PT/INR . you incidentally had a minor urinary tract infection - you'll be finishing two more days of antibiotics (cephalexin) for this - the next dose is tonight. Call your Primary Care doctor if any of the following symptoms or problems start or get worse: * Shortness of breath or difficulty breathing * Wake up at night short of breath * Chest pain * Cough * Swelling of your hands, feet, or legs * More fatigued or tired with your normal activity * Palpitations - sudden fast heart beats WEIGHT * Weigh yourself every morning after using the bathroom. * Use the same scale. * Wear the same amount of clothing. * Write your weight down on a chart. * Call your Primary Care doctor if you gain more than 2-3 pounds in 1-2 days. MEDICATIONS * Use this discharge instruction sheet for medication instructions. * Take your medications at the time your doctor ordered. * Do not skip a dose of your medicines. * If you miss a dose of medicine, take it as soon as possible, but DO NOT DOUBLE A DOSE. * Read your medicine information when you get home. * Know all of the side effects of your medicine. If in doubt, ask your pharmacist * Call your Primary Care doctor's office if you have any side effects. * Be sure all of your doctors know what medicine and herbs you take (including cold, flu, and herbal medicine). Take the following with you to your follow-up doctor appointments: * Weight Chart * Medication List * List of questions Do not drink excessive alcohol, beer or wine. Current Hospital Diet Patient's current hospital diet: AHA Diet (Heart Healthy) Discharge Diet Recommended Diet: Low Sodium Diet (2gm Na) Pending Studies Studies pending at discharge: no Medical Emergencies . Who to Call and When: Call 911 or go to the Emergency Room if: * If at any time you feel your situation is an emergency * You have tightness or pain in your chest that does not go away with rest or Nitroglycerin * You are very short of breath even with rest . Non-Emergent Contact Non-Emergency issues call your: Primary Care Provider, Blind Hanger . . "Provider Documentation" section prepared by Barney Posey. VTE Core Measure Inpt VTE Proph given/why not?: Warfarin (Coumadin)
--- NOTE | 2016-08-25 10:28 | Nephrology Progress Note ---
Nephrology Progress Note Date of Service Aug 25, 2016. Chief Complaint Follow-up for hyponatremia Subjective wasmiller panchal and examined in her room this am. She has been otherwise feeling well except she is was not able to have bowel movement over last few days. Serum sodium has normalized and has been stable at 136. Review of Systems A complete review of systems was performed. Pertinent positives are noted above. All other systems are negative. Vital Signs Last 8 Hrs Date Time Temp Pulse Resp B/P Pulse Ox O2 Delivery O2 Flow Rate FiO2 08/25/16 08:30 Nasal Cannula 3.0 08/25/16 07:58 36.4 70 20 152/77 91 Nasal Cannula 3.0 08/25/16 04:27 36.6 84 20 139/78 94 2.0 I & O 24-Hour Column 08/25/16 08:00 Intake Total 885 ml Output Total 1650 ml Balance -765 ml Last Recorded Weight Weight (Kilograms): 79.400 Physical Exam GENERAL: elderly female , AAA x 3, pleasant, healthy-appearing, not in any distress. NECK: Supple, no JVD. RESPIRATORY: Normal breathing efforts, no accessory muscle use, clear to auscultation bilaterally, no wheezes or rales. CARDIOVASCULAR: S1, S2 normal, rate rhythm regular. EXTREMITY: 1+ lower extremity edema NEURO: speech fluent. PSYCHIATRY: Normal mood and judgment Family History Diabetes mellitus Negative for CKD/ESRD Social History Smoking Status: Never smoker Alcohol Use: none Drug Use: none Marital Status: Occupation: retired . Retired. Never a smoker. Denies alcohol use. Laboratory Results Past 24 Hours 08/25/16 06:10 Red Blood Count 3.03, Mean Corpuscular Volume 96.7, Mean Corpuscular Hemoglobin 32.3, Mean Corpuscular Hemoglobin Concent 33.4, Mean Platelet Volume 9.7, Neutrophils (%) (Auto) 59.5, Lymphocytes (%) (Auto) 23.7, Monocytes (%) (Auto) 11.5, Eosinophils (%) (Auto) 4.4, Basophils (%) (Auto) 0.7, Neutrophils # (Auto ) 3.51, Lymphocytes # (Auto) 1.40, Monocytes # (Auto) 0.68, Eosinophils # (Auto ) 0.26, Basophils # (Auto) 0.04 08/25/16 06:10 Test 08/25/16 06:10 White Blood Count 5.90 K/uL (4.8-10.8) Red Blood Count 3.03 M/uL (4.2-5.4) Hemoglobin 9.8 g/dL (12.0-16.0) Hematocrit 29.3 % (37-47) Mean Corpuscular Volume 96.7 fL (80-100) Mean Corpuscular Hemoglobin 32.3 pg (25-34) Mean Corpuscular Hemoglobin Concent 33.4 g/dl (32-36) Platelet Count 216 K/uL (130-400) Mean Platelet Volume 9.7 fL (7.4-10.4) Neutrophils (%) (Auto) 59.5 % Lymphocytes (%) (Auto) 23.7 % Monocytes (%) (Auto) 11.5 % Eosinophils (%) (Auto) 4.4 % Basophils (%) (Auto) 0.7 % Neutrophils # (Auto) 3.51 K/uL (1.4-6.5) Lymphocytes # (Auto) 1.40 K/uL (1.2-3.4) Monocytes # (Auto) 0.68 K/uL (0.11-0.59) Eosinophils # (Auto) 0.26 K/uL (0-0.5) Basophils # (Auto) 0.04 K/uL (0-0.2) RDW Standard Deviation 48.6 fL (36.4-46.3) RDW Coefficient of Variation 13.7 % (11.5-14.5) Immature Granulocyte % (Auto) 0.2 % Immature Granulocyte # (Auto) 0.01 K/uL (0.00-0.02) Prothrombin Time 20.2 SECONDS (9.0-12.0) Prothromb Time International Ratio 1.8 (0.9-1.1) Anion Gap 9.0 mmol/L (3-11) Est Creatinine Clear Calc Drug Dose 38.8 ml/min Estimated GFR () 68.5 Estimated GFR (Non- 59.1 BUN/Creatinine Ratio 27.1 (10-20) Calcium Level 8.6 mg/dl (8.5-10.1) Magnesium Level 2.0 mg/dl (1.8-2.4) Allergies Coded Allergies: Morphine (Verified Allergy, Unknown, swelling, 12/7/16) Phenobarbital (Unverified Allergy, Unknown, ITCHINESS, 07/23/16) Medications Current Inpatient Medications Medications (Trade) Dose Ordered Sig/Naren Route Start Time Stop Time Status Last Admin Dose Admin Calcium/Vitamin D (Caltrate Plus Tab) 1 tab DAILY PO 08/20/16 09:00 09/19/16 08:59 08/25/16 08:37 1 TAB Cetirizine HCl (zyrTEC TAB) 10 mg DAILY PRN PO 08/19/16 22:45 09/18/16 22:44 08/25/16 08:38 10 MG Cyanocobalamin (Vitamin B-12 Tab) 2,000 mcg DAILY PO 08/20/16 09:00 09/19/16 08:59 08/25/16 08:37 2,000 MCG Gabapentin (Neurontin Cap) 300 mg BID PO 08/20/16 09:00 09/19/16 08:59 08/25/16 08:37 300 MG Acetaminophen/ Hydrocodone Bitart ([place] 5/325 Tab) 1 tab Q6H PRN PO 08/19/16 22:45 09/02/16 22:44 08/25/16 08:45 1 TAB Lorazepam (Ativan Tab) 0.5 mg HS PRN PO 08/19/16 22:45 09/18/16 22:44 08/24/16 22:22 0.5 MG Simvastatin (Zocor Tab) 5 mg QPM PO 08/20/16 21:00 09/19/16 20:59 08/24/16 20:31 5 MG Triamcinolone Acetonide (Kenalog 0.5% Crm) 1 appln BID EXT 08/20/16 09:00 09/19/16 08:59 08/25/16 08:38 1 APPLN Pantoprazole Sodium (Protonix Tab) 40 mg BID PO 08/20/16 09:00 09/19/16 08:59 08/25/16 08:38 40 MG Artificial Tears (Artificial Tears) 1 drops HS OPB 08/20/16 21:00 09/19/16 20:59 08/24/16 20:31 1 DROPS Lactobacillus Acidophilus (Floranex Tab) 4 tab DAILY PO 08/20/16 09:00 09/19/16 08:59 08/25/16 08:37 4 TAB Acetaminophen (Tylenol Tab) 650 mg Q4H PRN PO 08/19/16 22:45 09/18/16 22:44 08/22/16 14:16 650 MG Magnesium Hydroxide (Milk Of Magnesia Susp) 30 ml Q12H PRN PO 08/19/16 22:45 09/18/16 22:44 Ondansetron HCl (Zofran Inj) 4 mg Q6H PRN IV 08/19/16 22:45 09/18/16 22:44 08/22/16 19:49 4 MG Polyethylene 17 gm 17 gm DAILY PRN PO 08/19/16 22:45 09/18/16 22:44 08/25/16 08:44 17 GM Iron Sucrose/ Sodium Chloride (Venofer Inj/Nss 100ml) 105 ml @ 420 mls/hr DAILY@0900 IV 08/22/16 11:30 08/31/16 09:14 08/25/16 08:38 420 MLS/HR Warfarin Sodium (Coumadin Tab) 2 mg DAILY@1600 PO 08/23/16 16:00 09/22/16 15:59 08/24/16 15:57 2 MG Bumetanide (Bumex Tab) 1 mg BID17 PO 08/23/16 09:00 09/22/16 08:59 08/25/16 08:38 1 MG Cephalexin Monohydrate (Keflex Cap) 500 mg BID17 PO 08/24/16 17:00 08/29/16 16:59 08/25/16 08:38 500 MG Impression (1) Hyponatremia (2) Dehydration (3) Hypotension arterial (4) Atrial fibrillation (5) Chronic diastolic CHF (congestive heart failure) (6) Generalized weakness Patient admitted to the hospital for evaluation of hyponatremia. She has chronic diastolic CHF. Recently her diuretic regimen was adjusted and she was started on a thiazide in addition to her loop diuretic. Patient has experienced a brisk diuresis. Her lower extremity edema has markedly improved but she has become progressively weak. She developed orthostasis and lower extremity muscle cramping. Serum sodium dropped to 119 mg/dl. Urine osmolality remains relatively low. Patient was clinically volume contracted. She had hypoosmolar hyponatremia due to thiazide diuretic use and clinical dehydration. Patient has no neurologic symptoms other than weakness. PMH - chronic atrial fibrillation, complete heart block requiring dual chamber pacemaker 2012, moderate MR, chronic diastolic heart failure, chronic venous insufficiency, GERD, OA, C. Difficile colitis and CKD w/ baseline creatinine 1.0 (EGFR 51 cc/min) Recommendations HYPONATREMIA: -- Resolved. Patient appears euvolemic. -- continue on Bumex 1 milligram twice a day DIASTOLIC CHF: -- Avoid thiazide diuretic in the future -- Continue Bumetanide 1 mg po BID -- Will supplement serum potassium today and check Mg in am -- Monitor I&O's and lower extremity edema ANEMIA: -- FOBT x 1 is negative -- Iron stores are low -- Continue IV venofer 1 g daily x 10 doses (today is day # 3)
[2016-08-25 11:02] VITALS: BP 149/86; PULSE 70; TEMP 36.4; O2SAT 94
--- NOTE | 2016-08-25 11:27 | Discharge Summary ---
Discharge Summary Admission Date: Aug 19, 2016 at 22:38 Discharge Date: Aug 25, 2016 Discharge Disposition: Home with services Principal Diagnosis: hyponatremia (diuretic related) Immunizations: Have You Had Influenza Vaccine: N/A History of Tetanus Vaccine?: Yes History of Pneumococcal: Yes Pneumococcal Date: May 28, 2012 History of Hepatitis B Vaccine: No Procedures: Last Resulted CBC 08/25/16 06:10 Red Blood Count 3.03, Mean Corpuscular Volume 96.7, Mean Corpuscular Hemoglobin 32.3, Mean Corpuscular Hemoglobin Concent 33.4, Mean Platelet Volume 9.7, Neutrophils (%) (Auto) 59.5, Lymphocytes (%) (Auto) 23.7, Monocytes (%) (Auto) 11.5, Eosinophils (%) (Auto) 4.4, Basophils (%) (Auto) 0.7, Neutrophils # (Auto ) 3.51, Lymphocytes # (Auto) 1.40, Monocytes # (Auto) 0.68, Eosinophils # (Auto ) 0.26, Basophils # (Auto) 0.04 Last Resulted BMP 08/25/16 06:10 Consultations: cardiology nephrology Medication Reconciliation New Medications: Cephalexin Monohydrate (Cephalexin) 500 Mg Cap 500 MG PO BID17, #4 CAP Continued Medications: Amlodipine/Benazepril (Lotrel 10MG/20MG) 10 Mg/20 Mg Cap 1 CAPSULE PO DAILY, CAP Bumetanide (Bumex) 2 Mg Tab 1 TAB PO BID for 30 Days, #60 TAB 5 Refills Calcium Carbonate-Vitamin D W/ (Caltrate 600 Plus) 1 Tab Tab 1 TABLET PO DAILY, TAB Cetirizine (Zyrtec) 10 Mg Tab 10 MG PO DAILY PRN for itchy water eyes , TAB Cyanocobalamin (Sm Vitamin B12) 500 Mcg Tab 2000 MCG PO DAILY Diclofenac Sodium (Topical) (Voltaren 1% Top Gel) 1 % Gel Unknown Dose TOP QID Gabapentin (Neurontin) 300 Mg Cap 300 MG PO BID, CAP Guaifenesin (Mucinex Maximum Strength) 1,200 Mg Tab 600 MG PO Q12 PRN for Cough for 7 Days, TAB Hydrocodone/Acetaminophen 5MG/325MG ([place] 5MG/325MG) Tab 1 TABLET PO Q6H PRN for Pain, TAB Lorazepam (Ativan) 0.5 Mg Tab 0.5 MG PO HS PRN for Sleep, TAB Multiple Vitamins W/ Minerals (Centrum Silver Adult 50+) 1 Tab Tab 1 TAB PO DAILY Nystatin (Topical) (Nystop) 100,000 Unit/Gm Pow Unknown Dose TOP TID Omeprazole (Prilosec) 20 Mg Cap 20 MG PO BID, #60 Polyethylene Glycol 3350 (Miralax) 1 Pow Pow 17 GM PO DAILY, #255 GM Polyethylene Glycol-Propylene (Systane) 1 Madeline Madeline 1 DROP OPB HS Potassium Ext Rel (Klor-Con) 10 Meq Tabcr 10 MEQ PO BID Probiotic Product (Probiotic) 1 Tab Tab 1 TAB PO DAILY Sennosides-Docusate Sodium (Stool Softener) 1 Tab Tab 1 TAB PO UD PRN for Constipation Simvastatin (Zocor) 5 Mg Tab 5 MG PO QPM, TAB Triamcinolone Acet (Triamcinolone Acetonide) 45 Appln/15 Gm Cr 1 APPLN TOP BID for 30 Days, #30 GM Warfarin Sod (Jantoven) 2 Mg Tab 1 MG PO 5XWK, TAB EXCEPT THURSDAY AND THURSDAY Discontinued Medications: Furosemide (Furosemide) 40 Mg Tab 40 MG PO UD, #180 Metolazone (Metolazone) 5 Mg Tab 5 MG PO Q2D, #15 Discharge Exam Physical Exam: General Appearance: no apparent distress Eyes: EOMI ENT: hearing grossly normal Neck: trachea midline Respiratory/Chest: no respiratory distress, no accessory muscle use, + rales (faint rales bibasilar) Extremities: normal inspection, + pertinent finding (trace edema, equal) 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 Still with edema and crackles on exam but now euvolemic - suspect this is near her baseline TSH normal, Urine Osm low Na+ from 118--> 124 in 24 hrs--> 127 in 48 hrs--> 131-> 136 -will have close outpt f/u (f/u end of this week, then again next week, weekly BMP x 4, then depending on stability) -d/w pt dynamic nature of fluid management -pt doing well with ambulation - feels that she will do well at home with the home care and family support she has in place, notes that she does not have to traverse stairs, and that family lives nearby to help with meds/food/getting to appointments; has robust home nursing support 2) Chronic Diastolic CHF, Pulm HTN, Pacer in situ, h/o Sarcoidosis (cardiac sarcoid?), calcified MV, mild - recent admit for exacerbation / pulmonary edema - Bumex restarted and increased to 1mg bid - will discharge on this alone for now - but she is aware that with dynamic nature of fluid management, this may change -daily weights as before at home -close outpt f/u -she would prefer home O2 if possible - ordering 2-step walk test, and will arrange O2 if low 3) HTN -resuming amlodipine and ACEi at discharge since BP has been trending towards higher 4) Chronic AF - paced rhythm - continue coumadin. f/u INR 5) Anemia-Fe deficiency and of CKD-hgb 9-10, Fe sat low, hemoccult neg x 1 -replacing IV Fe x 10 doses (has received 3 here) - to be arranged as outpt -follow CBC as outpt 6) UTI-gamma strep on Ur cx > 100k, probably asymptomatic bacteriuria however did have some encephalopathy on admission, combo of hyponatremia and UTI. -received Rocephin 2 days and will finish 5 days total treatment with keflex Proph: coumadin, Lovenox, PPI for home later today Total Time Spent: Greater than 30 minutes This includes examination of the patient, discharge planning, medication reconciliation, and communication with other providers. Discharge Instructions Please refer to the electronic Patient Visit Report (Discharge Instructions) for additional information. Follow-Up PCP and cardiology in short order BMP, PT/INR BMP weekly x 4 CBC 1-2 weeks IV venofer to be set up for 7 more doses Additional Copies To Lisa Carter DO; Orion Huber MD
--- NOTE | 2016-08-25 12:26 | Cardiology Follow-Up ---
Subjective Subjective Date of Service: Aug 25, 2016. Pt evaluation today including: conversation w/ patient, physical exam, chart review, lab review, review of studies, review of inpatient medication list Additional Details: Feeling well this a.m.. Denies any significant shortness of breath or chest pain No new complaints Problem List Medical Problems: (1) CHF exacerbation Status: Acute (2) Hypokalemia Status: Acute (3) Hypoxemia Status: Acute (4) Hypoxia Status: Acute (5) Peripheral edema Status: Acute Review of Systems Constitutional: No fever Eyes: No problem reported Respiratory: + shortness of breath Cardiac: + edema, No chest pain Abdomen: No constipation, No diarrhea, No pain Musculoskeletal: + joint pain Female : No dysuria Neurologic: No memory loss Heme: No abnormal bleeding/bruising Endo: + fatigue Skin: No rash Objective Vital Signs Last Vital Signs Documentation Date Time Temp Pulse Resp B/P Pulse Ox O2 Delivery O2 Flow Rate FiO2 08/25/16 11:02 36.4 70 22 149/86 94 Nasal Cannula 3.0 Physical Exam: General Appearance: WD/WN, no apparent distress ENT: hearing grossly normal Neck: trachea midline Respiratory/Chest: no respiratory distress, no accessory muscle use, + crackles (Few crackles at left base) Cardiovascular: regular rate, rhythm, + systolic murmur (2/6 at LLSB), + pertinent finding (2-3+ pitting edema legs to thighs bilat) Abdomen: normal bowel sounds, non tender, soft (and obese) Extremities: no calf tenderness Neurologic/Psychiatric: alert, normal mood/affect, oriented x 3 Skin: normal color, warm/dry, no rash Assessment and Plan 1. Hypovolemic hyponatremia--sodium has returned to normal levels, appreciate Renal recommendations 2. Chronic diastolic heart failure- minimal pulmonary, mild systemic venous congestion on exam today. Agree with continuing on b.i.d. diuretics. Will need close follow-up and suspect we will need to return to 2 milligrams b.i.d. of Bumex. 3. Persistent atrial fib/flutter- persistent underlying atrial fibrillation with ventricularly paced rhythm. To follow up with Dr. Heck with EP in the outpatient setting for device interrogation and question benefits of attempted rhythm control. -in regards to anticoagulation would discontinue Lovenox and continue on Coumadin alone with planned outpatient follow-up. 4.Hypertension- BP trending up, agree with continuing to hold antihypertensives for now with plan to resume as needed as an outpatient. Appreciate renal and Hospital Medicine care. Patient can follow up with me in next 1-2 weeks on discharge. Medications: Current Inpatient Medications Medications (Trade) Dose Ordered Sig/Naren Route Start Time Stop Time Status Last Admin Dose Admin Calcium/Vitamin D (Caltrate Plus Tab) 1 tab DAILY PO 08/20/16 09:00 09/19/16 08:59 08/25/16 08:37 1 TAB Cetirizine HCl (zyrTEC TAB) 10 mg DAILY PRN PO 08/19/16 22:45 09/18/16 22:44 08/25/16 08:38 10 MG Cyanocobalamin (Vitamin B-12 Tab) 2,000 mcg DAILY PO 08/20/16 09:00 09/19/16 08:59 08/25/16 08:37 2,000 MCG Gabapentin (Neurontin Cap) 300 mg BID PO 08/20/16 09:00 09/19/16 08:59 08/25/16 08:37 300 MG Acetaminophen/ Hydrocodone Bitart ([place] 5/325 Tab) 1 tab Q6H PRN PO 08/19/16 22:45 09/02/16 22:44 08/25/16 08:45 1 TAB Lorazepam (Ativan Tab) 0.5 mg HS PRN PO 08/19/16 22:45 09/18/16 22:44 08/24/16 22:22 0.5 MG Simvastatin (Zocor Tab) 5 mg QPM PO 08/20/16 21:00 09/19/16 20:59 08/24/16 20:31 5 MG Triamcinolone Acetonide (Kenalog 0.5% Crm) 1 appln BID EXT 08/20/16 09:00 09/19/16 08:59 08/25/16 08:38 1 APPLN Pantoprazole Sodium (Protonix Tab) 40 mg BID PO 08/20/16 09:00 09/19/16 08:59 08/25/16 08:38 40 MG Artificial Tears (Artificial Tears) 1 drops HS OPB 08/20/16 21:00 09/19/16 20:59 08/24/16 20:31 1 DROPS Lactobacillus Acidophilus (Floranex Tab) 4 tab DAILY PO 08/20/16 09:00 09/19/16 08:59 08/25/16 08:37 4 TAB Acetaminophen (Tylenol Tab) 650 mg Q4H PRN PO 08/19/16 22:45 09/18/16 22:44 08/22/16 14:16 650 MG Magnesium Hydroxide (Milk Of Magnesia Susp) 30 ml Q12H PRN PO 08/19/16 22:45 09/18/16 22:44 Ondansetron HCl (Zofran Inj) 4 mg Q6H PRN IV 08/19/16 22:45 09/18/16 22:44 08/22/16 19:49 4 MG Polyethylene 17 gm 17 gm DAILY PRN PO 08/19/16 22:45 09/18/16 22:44 08/25/16 08:44 17 GM Iron Sucrose/ Sodium Chloride (Venofer Inj/Nss 100ml) 105 ml @ 420 mls/hr DAILY@0900 IV 08/22/16 11:30 08/31/16 09:14 08/25/16 08:38 420 MLS/HR Warfarin Sodium (Coumadin Tab) 2 mg DAILY@1600 PO 08/23/16 16:00 09/22/16 15:59 08/24/16 15:57 2 MG Bumetanide (Bumex Tab) 1 mg BID17 PO 08/23/16 09:00 09/22/16 08:59 08/25/16 08:38 1 MG Cephalexin Monohydrate (Keflex Cap) 500 mg BID17 PO 08/24/16 17:00 08/29/16 16:59 08/25/16 08:38 500 MG Lab Results: 08/25/16 06:10 Red Blood Count 3.03, Mean Corpuscular Volume 96.7, Mean Corpuscular Hemoglobin 32.3, Mean Corpuscular Hemoglobin Concent 33.4, Mean Platelet Volume 9.7, Neutrophils (%) (Auto) 59.5, Lymphocytes (%) (Auto) 23.7, Monocytes (%) (Auto) 11.5, Eosinophils (%) (Auto) 4.4, Basophils (%) (Auto) 0.7, Neutrophils # (Auto ) 3.51, Lymphocytes # (Auto) 1.40, Monocytes # (Auto) 0.68, Eosinophils # (Auto ) 0.26, Basophils # (Auto) 0.04 08/25/16 06:10 Test 08/25/16 06:10 White Blood Count 5.90 K/uL (4.8-10.8) Red Blood Count 3.03 M/uL (4.2-5.4) Hemoglobin 9.8 g/dL (12.0-16.0) Hematocrit 29.3 % (37-47) Mean Corpuscular Volume 96.7 fL (80-100) Mean Corpuscular Hemoglobin 32.3 pg (25-34) Mean Corpuscular Hemoglobin Concent 33.4 g/dl (32-36) Platelet Count 216 K/uL (130-400) Mean Platelet Volume 9.7 fL (7.4-10.4) Neutrophils (%) (Auto) 59.5 % Lymphocytes (%) (Auto) 23.7 % Monocytes (%) (Auto) 11.5 % Eosinophils (%) (Auto) 4.4 % Basophils (%) (Auto) 0.7 % Neutrophils # (Auto) 3.51 K/uL (1.4-6.5) Lymphocytes # (Auto) 1.40 K/uL (1.2-3.4) Monocytes # (Auto) 0.68 K/uL (0.11-0.59) Eosinophils # (Auto) 0.26 K/uL (0-0.5) Basophils # (Auto) 0.04 K/uL (0-0.2) RDW Standard Deviation 48.6 fL (36.4-46.3) RDW Coefficient of Variation 13.7 % (11.5-14.5) Immature Granulocyte % (Auto) 0.2 % Immature Granulocyte # (Auto) 0.01 K/uL (0.00-0.02) Prothrombin Time 20.2 SECONDS (9.0-12.0) Prothromb Time International Ratio 1.8 (0.9-1.1) Anion Gap 9.0 mmol/L (3-11) Est Creatinine Clear Calc Drug Dose 38.8 ml/min Estimated GFR () 68.5 Estimated GFR (Non- 59.1 BUN/Creatinine Ratio 27.1 (10-20) Calcium Level 8.6 mg/dl (8.5-10.1) Magnesium Level 2.0 mg/dl (1.8-2.4)
[2016-08-25] MEDS ORDERED: FERR1TAB23 PO (12:42)
[2016-08-25] MEDS: ACETAMINOPHEN 325 MG TAB PO PRN (13:41)
[2016-08-25] MEDS: WARFARIN SOD 2 MG TAB PO SCH (16:07)
[2016-09-27] MEDS ORDERED: POTA1POW PO (07:55)
[2016-09-27] MEDS ORDERED: LORA-741 PO (07:55)
[2016-09-27] MEDS ORDERED: OMEP20CA9 PO (07:55)
[2016-09-27] MEDS ORDERED: GABA-113 PO (07:55)
[2016-09-27] MEDS ORDERED: BUME2TAB3 PO (07:55)
[2016-09-27] MEDS ORDERED: HYDR-5688 PO (07:55)
[2016-09-27] MEDS ORDERED: CMD2 PO (07:55)
[2016-09-27] MEDS ORDERED: SENNTAB23 PO (07:55)
[2016-09-27] MEDS ORDERED: SPR25 PO (07:55)
[2017-04-11] MEDS ORDERED: BUME2TAB3 PO (15:39)
[2017-04-11] MEDS ORDERED: POTA10CA28 PO (15:44)
[2017-04-11] MEDS ORDERED: SPIR25TA PO (15:46)
[2017-04-11] MEDS ORDERED: CYAN500T PO (15:48)
[2017-04-30] MEDS ORDERED: ACET-1047 PO (15:23)
[2017-04-30] MEDS ORDERED: ULT50X PO (15:23)
[2017-04-30] MEDS ORDERED: LORA-741 PO (15:23)
[2017-04-30] MEDS ORDERED: DMD20 PO (15:23)
[2017-04-30] MEDS ORDERED: CMD1 PO (15:23)
[2017-04-30] MEDS ORDERED: CIPR1TAB11 PO (15:23)
== END 2016-08-25 16:15 | disposition home health service (06) | DRG 917 ==
LOC: ENRESERVDT → ENRESERVTM → C.EDB 19:23 → C.MED 22:38
PROVIDERS: ADMIT Internal Medicine; ATTEND Family Medicine
DX: T50.1X1A Poisoning by loop [high-ceiling] diuretics, accidental (unintentional), initial encounter (principal); G93.40 Encephalopathy, unspecified; E87.1 Hypo-osmolality and hyponatremia; I48.1 Persistent atrial fibrillation; I48.92 Unspecified atrial flutter; N39.0 Urinary tract infection, site not specified; I50.32 Chronic diastolic (congestive) heart failure; I44.2 Atrioventricular block, complete; I13.0 Hypertensive heart and chronic kidney disease with heart failure and stage 1 through stage 4 chronic kidney disease, or unspecified chronic kidney disease; E87.6 Hypokalemia; X58.XXXA Exposure to other specified factors, initial encounter; N18.3 Chronic kidney disease, stage 3 (moderate); D86.0 Sarcoidosis of lung; K21.9 Gastro-esophageal reflux disease without esophagitis; Z95.0 Presence of cardiac pacemaker; I87.2 Venous insufficiency (chronic) (peripheral); I34.0 Nonrheumatic mitral (valve) insufficiency; I27.2 Other secondary pulmonary hypertension; M19.90 Unspecified osteoarthritis, unspecified site; I35.0 Nonrheumatic aortic (valve) stenosis; Z66 Do not resuscitate; E86.0 Dehydration; I48.2 Chronic atrial fibrillation; D63.1 Anemia in chronic kidney disease; D50.9 Iron deficiency anemia, unspecified; B95.4 Other streptococcus as the cause of diseases classified elsewhere; E87.70 Fluid overload, unspecified; Z86.19 Personal history of other infectious and parasitic diseases; I95.9 Hypotension, unspecified; Z96.649 Presence of unspecified artificial hip joint; Z96.659 Presence of unspecified artificial knee joint; R53.1 Weakness; Z79.01 Long term (current) use of anticoagulants; Z79.1 Long term (current) use of non-steroidal anti-inflammatories (NSAID); Z79.891 Long term (current) use of opiate analgesic; Z79.899 Other long term (current) drug therapy

== ENCOUNTER → 2016-09-08 | Outpatient (CLI) | payer OTHER, BC ==
[~2016-09-08] MED LIST changes: +ACET-1047 PO; -CHOL100010 PO; +CIPR1TAB11 PO; +CMD1 PO; +CMD2 PO; +CYAN500T PO; +DMD20 PO; +FERR1TAB23 PO; +KFL500 PO; +POTA10CA28 PO; +POTA1POW PO; +SPIR25TA PO; +SPR25 PO; +ULT50X PO; -WARF4TAB8 PO
[2016-09-08 12:42] LABS: ALT/SGPT 27 U/L (12-78); BLOOD UREA NITROGEN 22 mg/dl (7-18); BUN/CREATININE RATIO 21.9 (10-20); CALCIUM 8.8 mg/dl (8.5-10.1); CARBON DIOXIDE 27 mmol/L (21-32); CHLORIDE 99 mmol/L (98-107); CREATININE 0.98 mg/dl (0.60-1.20); GLUCOSE 104 mg/dl (70-99); POTASSIUM 4.3 mmol/L (3.5-5.1); SODIUM 137 mmol/L (136-145)
[2016-09-08 12:45] LABS: ALB/GLOB RATIO 1.3 (0.9-2); ALKALINE PHOSPHATASE 60 U/L (45-117); AST/SGOT 23 U/L (15-37)
== END | disposition home or self-care (01) ==
LOC: C.LAB1850 11:04
PROVIDERS: ATTEND Internal Medicine Interventional Cardiology
DX: I50.30 Unspecified diastolic (congestive) heart failure (principal); N18.3 Chronic kidney disease, stage 3 (moderate)

== ENCOUNTER 2016-09-17 14:14 | Inpatient (IN) | payer OTHER, BC ==
[~2016-09-17] VITALS: Ht 147.3 cm; Wt 73.4 kg
[~2016-09-17 14:14] MED LIST changes: -ACET-1047 PO; -CIPR1TAB11 PO; -CMD1 PO; -CMD2 PO; -CYAN500T PO; -DMD20 PO; -POTA10CA28 PO; -POTA1POW PO; -SPIR25TA PO; -SPR25 PO; -ULT50X PO
--- NOTE | 2016-09-17 15:51 | DIAGNOSTIC IMAGING REPORT ---
CHEST ONE VIEW PORTABLE CLINICAL HISTORY: CHEST PAIN dyspnea COMPARISON STUDY: 07/23/2016 FINDINGS: Stable cardiomegaly. Trace pleural fluid both lung bases. Findings of mild congestive heart failure. IMPRESSION: Congestive heart failure with small bilateral pleural effusions. Electronically signed by: Jerod Steward M.D. 09/17/2016 3:49 PM Dictated Date/Time: 09/17/2016 3:49 PM
[2016-09-17 16:21] LABS: BASO % 0.2 %; BASO ABS # 0.01 K/uL (0-0.2); COMPLETE YES; EOS % 0.2 %; HEMATOCRIT 28.3 % (37-47); IG% 0.2 %; LYMPH % 13.5 %; LYMPH ABS # 0.84 K/uL (1.2-3.4); MEAN CELL VOLUME 93.1 fL (80-100); MEAN CORPUSCULAR HEMOGLOBIN 32.2 pg (25-34); MEAN CORPUSCULAR HGB CONC 34.6 g/dl (32-36); MEAN PLATELET VOLUME 9.4 fL (7.4-10.4); MONO % 16.4 %; NEUT % 69.5 %; PLATELET COUNT 299 K/uL (130-400); RED BLOOD COUNT 3.04 M/uL (4.2-5.4); WHITE BLOOD COUNT 6.21 K/uL (4.8-10.8)
[2016-09-17] MEDS ORDERED: POTA1POW PO (16:22)
[2016-09-17] MEDS ORDERED: WARF2TAB8 PO (16:29)
[2016-09-17 16:30] LABS: URINE APPEARANCE CLEAR (CLEAR); URINE BILIRUBIN NEG (NEG); URINE COLOR YELLOW; URINE NITRITE NEG (NEG); URINE PH 5.5 (4.5-7.5); URINE SPECIFIC GRAVITY 1.008 (1.000-1.030); UROBILINOGEN NEG (NEG)
[2016-09-17 16:34] LABS: MANUAL MICROSCOPIC REQUIRED? NO; REVIEW REQ? NO
[2016-09-17 16:38] LABS: INR 3.2 (0.9-1.1); PROTHROMBIN TIME (PATIENT) 35.9 SECONDS (9.0-12.0)
[2016-09-17 16:39] LABS: POINT OF CARE TROPONIN I 0.01 ng/ml (0-0.045)
[2016-09-17 16:46] LABS: BUN/CREATININE RATIO 35.9 (10-20); CALCIUM 8.8 mg/dl (8.5-10.1); CREATININE 1.4 mg/dl (0.60-1.20); POTASSIUM 4.9 mmol/L (3.5-5.1)
[2016-09-17 16:51] LABS: CKMB/CK RATIO 0.8 (0-3.0)
--- NOTE | 2016-09-17 17:47 | EMERGENCY ROOM VISIT NOTE ---
History Report prepared by Jere: Cintia Booker Under the Supervision of: Dr. Carlo Martínez M.D. First contact with patient: 15:04 Chief Complaint: RESPIRATORY PROBLEMS Stated Complaint: CHF Nursing Triage Summary: Triage note: Difficulty breathing, uses 2 liters NC O2 at home, bilateral leg swelling. Recent hx of CHF. Joanne, daughter, states that the pt had a home health nurse visit and were told that the patient's blood work was abnormal. Pt states she has bed sores on her backside (not visualized in triage). History of Present Illness The patient is a 89 year old female who presents to the Emergency Room with complaints of worsening bilateral lower extremity edema that started a couple days ago. She is also experiencing lower extremity pain. The patient has been weighing herself daily. The patient's daughter states that the patient gained 5 lbs overnight the other night and she has been gaining weight since then. She is on 2 pills of Bumex daily. The patient's daughter states that the patient's doctor tried to give her one dose of a "booster" before her Bumex. The patient states that it helped, but her daughter adds that in the past the booster made things worse. The patient had blood work done one week ago and the home health nurse informed that patient's daughter that the patient's "kidney levels were down to 25, her INR was 6.2, her hemoglobin was low, and her sodium was 127." The patient's daughter also states that the patient is experiencing shortness of breath and generalized weakness. The patient is on 2 L of nasal cannula oxygen at home. She denies chest pain, abdominal pain, and recent falls. The patient is unsure of if she is experiencing urinary symptoms because she has not urinated much recently. Her daughter expresses concern about a possible UTI. The patient's daughter adds that the patient has a bed sore on her tailbone. The patient has a recent history of congestive heart failure. The patient is on Coumadin for atrial fibrillation and a pacemaker. The patient denies artificial heart valves. Source of History: patient, family (daughter) Onset: couple days ago Position: leg (bilateral) Quality: other (lower extremity edema) Timing: worsening Associated Symptoms: + weakness (generalized), No abdominal pain, No chest pain Note: bilateral lower extremity pain, bed sore on tailbone Review of Systems See HPI for pertinent positives & negatives. A total of 10 systems reviewed and were otherwise negative. Past Medical & Surgical Medical Problems: (1) Acute on chronic diastolic CHF (congestive heart failure) (2) Appendectomy (3) Atrial fibrillation (4) Benign hypertension (5) C. difficile colitis (6) CHF (congestive heart failure) (7) Chronic diastolic CHF (congestive heart failure) (8) Hyponatremia (9) Hypotension arterial (10) Hysterectomy (11) Orthopedic surgery (12) Osteoarthritis (13) Replacement of total knee joint (14) Tonsillectomy (15) Total replacement of hip Old medical records were reviewed. Nurse's notes were reviewed and I agree with. Family History Cancer Diabetes mellitus Heart disease Hypertension Lung disease Social History Smoking Status: Never Smoker Alcohol Use: none Drug Use: none Marital Status: Housing Status: lives alone Occupation Status: retired Current/Historical Medications Scheduled Amlodipine/Benazepril (Lotrel 10MG/20MG), 1 CAPSULE PO DAILY Bumetanide (Bumex), 1 TAB PO BID Calcium Carbonate-Vitamin D W/ (Caltrate 600 Plus), 1 TABLET PO DAILY Diclofenac Sodium (Topical) (Voltaren 1% Top Gel), Unknown Dose TOP QID Ferrous Sulfate (Iron), 1 TAB PO DAILY Gabapentin (Neurontin), 300 MG PO BID Multiple Vitamins W/ Minerals (Centrum Silver Adult 50+), 1 TAB PO DAILY Nystatin (Topical) (Nystop), Unknown Dose TOP TID Omeprazole (Prilosec), 20 MG PO BID Polyethylene Glycol 3350 (Miralax), 17 GM PO DAILY Polyethylene Glycol-Propylene (Systane), 1 DROP OPB HS Potassium Chloride Pwd (Klor-Con Pwd), 20 MEQ PO BID Probiotic Product (Probiotic), 1 TAB PO DAILY Simvastatin (Zocor), 5 MG PO QPM Triamcinolone Acet (Triamcinolone Acetonide), 1 APPLN TOP BID Warfarin Sod (Jantoven), 1 MG PO 6XWK Warfarin Sod (Jantoven), 4 MG PO DAILY Scheduled PRN Hydrocodone/Acetaminophen 5MG/325MG ([place] 5MG/325MG), 1 TABLET PO Q6H PRN for Pain Lorazepam (Ativan), 0.5 MG PO HS PRN for Sleep Sennosides-Docusate Sodium (Stool Softener), 1 TAB PO UD PRN for Constipation Allergies Coded Allergies: Morphine (Verified Allergy, Unknown, swelling, 09/17/16) Phenobarbital (Unverified Allergy, Unknown, ITCHINESS, 09/17/16) Physical Exam Vital Signs Date Time Temp Pulse Resp B/P Pulse Ox O2 Delivery O2 Flow Rate FiO2 09/17/16 18:58 70 22 134/59 96 Room Air 09/17/16 16:52 70 113/47 92 Nasal Cannula 3.0 09/17/16 15:49 Nasal Cannula 09/17/16 15:10 70 09/17/16 14:23 36.5 72 26 105/56 93 Room Air Physical Exam General: Well developed well nourished chronically ill-appearing older female who is on baseline oxygen and in no acute distress, breathing comfortably on room air. Normal speech HEENT: Normal cephalic atraumatic. Pupils are equal round and reactive to light. Sclerae anicteric. Extraocular movements are intact. Oropharynx is pink with moist mucous membranes. No swelling of the mouth lips or tongue. Neck: Supple with a midline trachea. No meningeal signs or stiffness, no JVD or bruits. No Stridor. Chest: Clear to auscultation bilaterally. No wheezes or rhonchi. No increased work of breathing. Heart: regular rate and rhythm. Abdomen: Soft nontender, nondistended without rebound guarding or rigidity. Extremities: 1+ tender pitting edema bilaterally. Pinkish discoloration of shins. No cyanosis or clubbing. No calf assymetry Spine/Back. Non tender to palpation. No CVA tenderness. Superficial pressure ulcer in central buttocks. Skin: Good turgor without rashes. Neurologic exam: Cranial nerves two through 12 are intact. Motor and sensation are intact and symmetrical throughout. Medical Decision & Procedures ER Provider Diagnostic Interpretation: X-ray results as stated below per interpretation by me and the radiologist: CHEST ONE VIEW PORTABLE IMPRESSION: Congestive heart failure with small bilateral pleural effusions. Electronically signed by: Jerod Steward M.D. 09/17/2016 3:49 PM Dictated Date/Time: 09/17/2016 3:49 PM Laboratory Results 09/17/16 16:00 Red Blood Count 3.04, Mean Corpuscular Volume 93.1, Mean Corpuscular Hemoglobin 32.2, Mean Corpuscular Hemoglobin Concent 34.6, Mean Platelet Volume 9.4, Neutrophils (%) (Auto) 69.5, Lymphocytes (%) (Auto) 13.5, Monocytes (%) (Auto) 16.4, Eosinophils (%) (Auto) 0.2, Basophils (%) (Auto) 0.2, Neutrophils # (Auto ) 4.32, Lymphocytes # (Auto) 0.84, Monocytes # (Auto) 1.02, Eosinophils # (Auto ) 0.01, Basophils # (Auto) 0.01 09/17/16 16:00 Test 09/17/16 15:45 09/17/16 16:00 09/17/16 16:21 Urine Color YELLOW Urine Appearance CLEAR (CLEAR) Urine pH 5.5 (4.5-7.5) Urine Specific [place] 1.008 (1.000-1.030) Urine Protein NEG (NEG) Urine Glucose (UA) NEG (NEG) Urine Ketones NEG (NEG) Urine Occult Blood NEG (NEG) Urine Nitrite NEG (NEG) Urine Bilirubin NEG (NEG) Urine Urobilinogen NEG (NEG) Urine Leukocyte Esterase TRACE (NEG) Urine WBC (Auto) 1-5 /hpf (0-5) Urine RBC (Auto) 5-10 /hpf (0-4) Urine Hyaline Casts (Auto) 1-5 /lpf (0-5) Urine Epithelial Cells (Auto) 5-10 /lpf (0-5) Urine Bacteria (Auto) NEG (NEG) White Blood Count 6.21 K/uL (4.8-10.8) Red Blood Count 3.04 M/uL (4.2-5.4) Hemoglobin 9.8 g/dL (12.0-16.0) Hematocrit 28.3 % (37-47) Mean Corpuscular Volume 93.1 fL (80-100) Mean Corpuscular Hemoglobin 32.2 pg (25-34) Mean Corpuscular Hemoglobin Concent 34.6 g/dl (32-36) Platelet Count 299 K/uL (130-400) Mean Platelet Volume 9.4 fL (7.4-10.4) Neutrophils (%) (Auto) 69.5 % Lymphocytes (%) (Auto) 13.5 % Monocytes (%) (Auto) 16.4 % Eosinophils (%) (Auto) 0.2 % Basophils (%) (Auto) 0.2 % Neutrophils # (Auto) 4.32 K/uL (1.4-6.5) Lymphocytes # (Auto) 0.84 K/uL (1.2-3.4) Monocytes # (Auto) 1.02 K/uL (0.11-0.59) Eosinophils # (Auto) 0.01 K/uL (0-0.5) Basophils # (Auto) 0.01 K/uL (0-0.2) RDW Standard Deviation 47.7 fL (36.4-46.3) RDW Coefficient of Variation 13.9 % (11.5-14.5) Immature Granulocyte % (Auto) 0.2 % Immature Granulocyte # (Auto) 0.01 K/uL (0.00-0.02) Prothrombin Time 35.9 SECONDS (9.0-12.0) Prothromb Time International Ratio 3.2 (0.9-1.1) Activated Partial Thromboplast Time 51.1 SECONDS (21.0-31.0) Partial Thromboplastin Ratio 2.0 Anion Gap 11.0 mmol/L (3-11) Est Creatinine Clear Calc Drug Dose 24.0 ml/min Estimated GFR () 38.5 Estimated GFR (Non- 33.2 BUN/Creatinine Ratio 35.9 (10-20) Calcium Level 8.8 mg/dl (8.5-10.1) Total Bilirubin 0.9 mg/dl (0.2-1) Direct Bilirubin 0.4 mg/dl (0-0.2) Aspartate Amino Transf (AST/SGOT) 30 U/L (15-37) Alanine Aminotransferase (ALT/SGPT) 27 U/L (12-78) Alkaline Phosphatase 64 U/L (45-117) Total Creatine Kinase 153 U/L (26-192) Creatine Kinase MB 1.2 ng/ml (0.5-3.6) Creatine Kinase MB Ratio 0.8 (0-3.0) Total Protein 6.6 gm/dl (6.4-8.2) Albumin 3.3 gm/dl (3.4-5.0) Lipase 194 U/L (73-393) Bedside Troponin I 0.010 ng/ml (0-0.045) AQ-Ndc-N-Type Natriuretic Peptide 3188 pg/ml (0-1800) Laboratory studies as stated above per my review. Medications Administered Medications (Trade) Dose Ordered Sig/Naren Route Start Time Stop Time Status Last Admin Dose Admin Acetaminophen/ Hydrocodone Bitart ([place] 5/325 Tab) 1 tab STK-MED ONCE .ROUTE 09/17/16 19:31 09/17/16 19:33 DC 09/17/16 19:35 1 TAB ECG Indication: SOB/dyspnea Rate (beats per minute): 70 Rhythm: other (Ventricular paced) Findings: no acute ischemic change, other (poor baseline) Comparison ECG Date: 08/19/2016 Change: no significant change ED Course 1506: Past medical records reviewed. The patient was evaluated in room B12, and a complete history and physical examination were performed. 1653: Upon reevaluation, the patient is resting comfortably. I discussed the results and treatment plan with the patient and her daughter. They verbalized agreement of the treatment plan. The patient will be evaluated for further management. 1654: I discussed the patient's case with Dr. Antonette DE LA CRUZ. He will evaluate the patient for further management. Medical Decision Differentials include, but are not limited to; congestive heart failure, acute coronary syndrome, arrhythmia, electrolyte or metabolic abnormality. This patient comes in as described above. She's had a history of CHF. She's had increasing lower extremity edema and weight gain. She has had no fever or chills. She looks well on exam she is on baseline oxygen. EKG, chest x-ray, and multiple blood tests was obtained. Chest x-ray shows findings consistent with CHF. EKG shows a paced rhythm without any ischemic changes. Her troponin is not elevated. Her BNP is elevated consistent with her CHF. Her BUN and creatinine are also elevated suggest overdiuresis however clinically she looks wet. This is a delicate balance of fluid status. I do think she needs to be admitted for pulmonary and renal consultation and further medications. I have consulted the hospitalist who will see her in the ER. Consults Time Called: 1652 Consulting Physician: Dr. Antonette DE LA CRUZ Returned Call: [phone] I discussed the patient's case with Dr. Antonette DE LA CRUZ. He will evaluate the patient for further management. Impression Primary Impression: CHF (congestive heart failure) Additional Impressions: Peripheral edema Renal insufficiency Scribe Attestation The scribe's documentation has been prepared under my direction and personally reviewed by me in its entirety. I confirm that the note above accurately reflects all work, treatment, procedures, and medical decision making performed by me. Departure Information Dispostion Being Evaluated By Hospitalist Referrals Lisa Tyler DO (PCP) Patient Instructions My [facility] Problem Qualifiers Primary Impression: CHF (congestive heart failure) Congestive heart failure type: unspecified congestive heart failure type Congestive heart failure chronicity: unspecified congestive heart failure chronicity Qualified Codes: I50.9 - Heart failure, unspecified
[2016-09-17] MEDS ORDERED: ACETAMINOPHEN 325 MG TAB PO PRN (18:45)
[2016-09-17] MEDS ORDERED: ONDANSETRON INJ 2 MG/ML 2 ML VIAL IV PRN (18:45)
[2016-09-17] MEDS ORDERED: HYDROCODONE/ACETAMOPHEN 5/325MG TAB ONE (19:31)
[2016-09-17 19:45] VITALS: BP 121/64; PULSE 72; TEMP 36.3; O2SAT 94; Ht 147.3 cm; Wt 73.4 kg
[2016-09-17] MEDS ORDERED: INFLUENZA VIRUS QUAD VACCINE 0.5 ML SYR IM. ONE (21:00)
[2016-09-17] MEDS ORDERED: INFLUENZA ADMINISTRATION CHARGE ONE (21:00)
[2016-09-17] MEDS ORDERED: PNEUMOCOCCAL POLYSACCHARIDES 25 MCG/0.5 ML VIAL/SYR IM. ONE (21:00)
[2016-09-17] MEDS ORDERED: POTASSIUM CHLORIDE PWD 20 MEQ PACK PO SCH (21:00)
[2016-09-17] MEDS ORDERED: PNEUMOCOCCAL ADMINISTRATION CHARGE ONE (21:00)
[2016-09-17] MEDS: BUMETANIDE 1 MG TAB PO SCH (21:42)
[2016-09-17] MEDS: SIMVASTATIN 5 MG TAB PO SCH (21:43)
[2016-09-17] MEDS: PANTOprazole SOD 40 MG TAB PO SCH (21:43)
[2016-09-17] MEDS: GABAPENTIN 300 MG CAP PO SCH (21:43)
[2016-09-17] MEDS: LORAZEPAM 0.5 MG TAB PO PRN (21:48)
--- NOTE | 2016-09-17 22:43 | HISTORY & PHYSICAL EXAMINATION ---
DATE OF ADMISSION: 09/17/2016 PRIMARY CARE PHYSICIAN: Lisa Tyler DO. CHIEF COMPLAINT: Increased lower extremity edema and abnormal labs. HISTORY OF PRESENT ILLNESS: Ms. Akhtar is an 89-year-old lady with a history of chronic diastolic heart failure, CKD 3 and atrial fibrillation, chronically anticoagulated with warfarin. She was recently discharged from this facility on 08/25/2016 after being treated for hyponatremia that was felt to be related to hypovolemia in the setting of diuretic use. At that time, she was switched from Lasix and metolazone to Bumex with the anticipation that she may need further diuretics as an outpatient. She says that over the past 2 weeks, she has gained a significant amount of weight. She has noticed her legs become much more swollen. She feels it is difficult to walk because of this, she is complaining of bilateral leg pain that she thinks is because her legs are so tight. She also tells me that the visiting nurse who saw her today recommended that she come to the ER based on some abnormal labs. The patient is not very clear and her daughter is not currently available to help out with the history, but apparently her INR was elevated to 6.2. Her hemoglobin was low. Her sodium was low and her creatinine was high. The patient herself denies any recent fever, chills or malaise. Denies any chest pain. She does note that she is short of breath, typically uses 2 liters of oxygen with any type of exertion as well as at bedtime. She does not think she has had any increase in her shortness of breath. She has not been coughing. She has not had any abdominal pain, nausea, vomiting or diarrhea. She denies any urinary complaints. She is also complaining of bilateral lower extremity pain and swelling along with what she says is a bedsore on her tailbone. She admits that she really has not been mobile since being discharged from the hospital last month. Her workup here in the ER included chemistries showing: Sodium of 127, potassium 4.9, chloride was also low at 88, bicarb 28, BUN 50, creatinine 1.4. At discharge, her creatinine was around 1.0 which is approximately her baseline, calcium 8.8, glucose 122, bilirubin 0.9, AST 30, ALT 27, alkaline phosphatase 64. Troponin was 0.01. NT-proBNP was 3188. Albumin was low at 3.3, total protein 6.6. Her CBC included a white blood cell count of 6200 with 69% neutrophils, hemoglobin 9.8, hematocrit 28.3, platelets 299,000. INR was 3.2. Urinalysis showed clear yellow urine that was negative for protein, glucose, ketones, blood, or nitrites. It was trace positive for leukocyte esterase, had no bacteria and had 1-5 WBCs. She did have a chest x-ray which is being interpreted by radiology as showing stable cardiomegaly with trace pleural effusions in both lung bases as well as some vascular congestion, which per radiologist reading is mild. Her EKG shows a ventricular paced rhythm with a rate of 70 beats per minute. The underlying rhythm appears to be AFib. At this point, she is being admitted for further workup and management. ALLERGIES: 1. MORPHINE. 2. PHENOBARBITAL. HOME MEDICATIONS: 1. [place] 5/325 one tablet p.o. q. 6 hours p.r.n. for pain. 2. Amlodipine with benazepril 10/20 mg 1 cap p.o. daily. 3. Bumex 2 mg p.o. b.i.d. 4. Calcium with vitamin D. 5. Voltaren topical gel. 6. Ferrous sulfate. 7. Gabapentin 300 mg p.o. twice daily. 8. Lorazepam 0.5 mg p.o. at bedtime p.r.n. 9. Multivitamin. 10. Topical nystatin powder. 11. Prilosec 20 mg p.o. b.i.d. 12. MiraLax 17 g p.o. daily. 13. Systane ophthalmic drops. 14. Potassium chloride 20 mEq p.o. twice daily. 15. Probiotic. 16. Sennoside with docusate. 17. Simvastatin 5 mg p.o. daily. 18. Triamcinolone topical ointment b.i.d. 19. Warfarin, which she takes 2 mg p.o. daily 6 days out of the week and 4 mg p.o. daily 1 day out of the week. She recently had an INR that was up to 6.2 and she was asked to hold her warfarin for 3 days. Her last dose was on September 14. PAST MEDICAL HISTORY: 1. Chronic atrial fibrillation, anticoagulated with warfarin. 2. Status post pacemaker implantation. 3. Hypertension. 4. C. diff colitis. 5. Chronic diastolic heart failure, most recent ejection fraction was normal on an echocardiogram in June 2016. Also noted on that study was moderate mitral regurgitation. 6. Osteoarthritis. 7. CKD 3. 8. Status post knee replacement. 9. Status post hip replacement. 10. Status post appendectomy. 11. Status post tonsillectomy. FAMILY HISTORY: Positive for diabetes. SOCIAL HISTORY: The patient is a lifelong nonsmoker. She does not abuse alcohol or illicit drugs. She is . She lives at home, is fairly independent, ambulates with a walker. REVIEW OF SYSTEMS: A 14-system review was conducted and was found to be completely negative except as otherwise indicated above in the history of present illness. PHYSICAL EXAMINATION: VITAL SIGNS: Currently show temperature is 36.5, pulse 70, respiratory rate is 20, oxygen saturation 92% on 3 liters via nasal cannula, blood pressure is 113/47. GENERAL: The patient is awake, alert, oriented. She is an elderly female who is in no distress but does appear to be chronically ill. HEENT: The sclerae are nonicteric. The mucous membranes are tacky. NECK: Trachea is midline. It is difficult to assess JVD, given the patient's body habitus. RESPIRATORY: Breath sounds are diminished in both bases, but equally. Above that, there are a few scattered crackles. She is not in any significant respiratory distress. HEART: S1 and S2 are heard with a regular rate and rhythm. There is a systolic murmur present. ABDOMEN: Soft, obese, nontender. Bowel sounds are present. EXTREMITIES: Warm. She does have 2-3+ pitting edema in the bilateral lower extremities to the thighs. She has evidence of stasis dermatitis in both lower extremities as well. MUSCULOSKELETAL: There is no chest wall tenderness. There are no obvious joint effusions or joint tenderness. NEUROLOGIC: The patient is awake and alert. There are no obvious focal deficits. Gait was not assessed. PSYCH: The patient is calm and cooperative. She exhibits a normal mood and affect. DIAGNOSTIC INVESTIGATIONS: Labs, imaging and EKG were reviewed as outlined above in the history of present illness. ASSESSMENT AND PLAN: 1. This patient is presenting with acute on chronic diastolic heart failure. She likely needs to be on a higher dose of diuretics; however, the patient is not clear on exactly what she had been receiving as an outpatient. At this point, given her tenuous renal status, we will ask both cardiology and nephrology to evaluate the patient to help guide diuresis. We will monitor strict I's and O's as well as daily weights. I will leave her on her Bumex 2 mg p.o. daily at least until she is evaluated by nephrology. 2. Acute kidney injury on chronic kidney disease 3. Creatinine is currently up to 1.4 for an estimated GFR of 33. Her baseline is creatinine of 1.0 and baseline GFR around 55. We will ask for guidance from nephrology while she is receiving diuretics. We will hold her usual potassium supplement, given the borderline high potassium. I will hold her ARB until she is seen by nephrology. 3. Hyponatremia. This is fairly mild with a sodium of 127. She was previously hyponatremic which was felt to be hypovolemic. At this point, she is more likely hypervolemic. We will await further recommendations from nephrology. 4. Atrial fibrillation. Currently, she is in a paced rhythm. Her rate is controlled. We will restart her on warfarin today at 2 mg p.o. daily. 5. Hypertension. Currently, her blood pressure is borderline low. I will hold her usual amlodipine at least until we see what her blood pressure is in the morning. We will also be holding her IVIS inhibitor until she is seen by nephrology. 6. Osteoarthritis. We will continue patient's home [place], MiraLax has been ordered for her. 7. Deep venous thrombosis prophylaxis is not necessary in this patient with therapeutic INR on warfarin. 8. Disposition: Admit to telemetry. 9. Code status: I discussed with the patient and she reaffirms that she would like to be a DNR/DNI as with previous admissions. 10. We will ask for social service consult to help with discharge planning as well as physical and occupational therapy consults. Total time spent preparing this admission was 45 minutes. NARINDER
[2016-09-18] VITALS (11 sets, daily range): BP systolic 94–135; BP diastolic 52–81; PULSE 69–77; TEMP 36.5–36.7; O2SAT 92–98
[2016-09-18] MEDS: HYDROCODONE/ACETAMOPHEN 5/325MG TAB PO PRN ×3 (07:38→22:24)
[2016-09-18] MEDS: POLYETHYLENE (MIRALAX) 17 GM PACK PO PRN (07:43)
[2016-09-18] MEDS: BUMETANIDE 1 MG TAB PO SCH (07:44)
[2016-09-18] MEDS: PANTOprazole SOD 40 MG TAB PO SCH ×2 (07:44→20:13)
[2016-09-18] MEDS: CALCIUM 600MG + VIT D 400 IU TAB PO SCH (07:45)
[2016-09-18] MEDS: LACTOBACILLUS ACIDOPHILUS (FLORANEX) TAB PO SCH (07:45)
[2016-09-18] MEDS: CEROVITE ADV FORMULA TAB PO SCH (07:45)
[2016-09-18] MEDS: GABAPENTIN 300 MG CAP PO SCH ×2 (07:46→20:13)
[2016-09-18] MEDS ORDERED: FERROUS SULFATE 325 MG TAB PO SCH (09:00)
[2016-09-18 09:24] LABS: BUN/CREATININE RATIO 32.5 (10-20); CALCIUM 8.9 mg/dl (8.5-10.1); CREATININE 1.3 mg/dl (0.60-1.20); MAGNESIUM 1.8 mg/dl (1.8-2.4); PHOSPHORUS 3.1 mg/dl (2.5-4.9); POTASSIUM 4.4 mmol/L (3.5-5.1)
--- NOTE | 2016-09-18 10:39 | Hospitalist Progress Note ---
Hospitalist Progress Note Date of Service Sep 18, 2016. Subjective Pt evaluation today including: conversation w/ patient, conversation w/ family , physical exam, lab review, review of inpatient medication list Patient c/o ongoing chronic osteoarthritic shoulder pain bilaterally. She also briefly complained of right-sided abdominal pain this morning. Denies N/V/D. Pain resolved with home dose of [place]. She reports she breathes easily at rest but becomes dyspneic trying to ambulate to the bathroom. She is interested in discussing SNF at discharge. Medications Current Inpatient Medications Medications (Trade) Dose Ordered Sig/Naren Route Start Time Stop Time Status Last Admin Dose Admin Acetaminophen (Tylenol Tab) 650 mg Q4H PRN PO 09/17/16 18:45 10/17/16 18:44 Ondansetron HCl (Zofran Inj) 4 mg Q6H PRN IV 09/17/16 18:45 10/17/16 18:44 Polyethylene (Miralax Powder Packet) 17 gm DAILY PRN PO 09/17/16 18:45 10/17/16 18:44 09/18/16 07:43 17 GM Calcium/Vitamin D (Caltrate Plus Tab) 1 tab DAILY PO 09/18/16 09:00 10/18/16 08:59 09/18/16 07:45 1 TAB Gabapentin (Neurontin Cap) 300 mg BID PO 09/17/16 21:00 10/17/16 20:59 09/18/16 07:46 300 MG Acetaminophen/ Hydrocodone Bitart ([place] 5/325 Tab) 1 tab Q6H PRN PO 09/17/16 18:45 10/01/16 18:44 09/18/16 07:38 1 TAB Lorazepam (Ativan Tab) 0.5 mg HS PRN PO 09/17/16 18:45 10/17/16 18:44 09/17/16 21:48 0.5 MG Multivitamins/ Minerals (Multivitamin W/ Minerals Tab) 1 tab DAILY PO 09/18/16 09:00 10/18/16 08:59 09/18/16 07:45 1 TAB Senna/Docusate Sodium (Senokot S Tab) 1 tab DAILY PRN PO 09/17/16 18:45 10/17/16 18:44 Simvastatin (Zocor Tab) 5 mg QPM PO 09/17/16 21:00 10/17/16 20:59 09/17/16 21:43 5 MG Ferrous Sulfate (Feosol Tab) 325 mg DAILY PO 09/18/16 09:00 10/18/16 08:59 09/18/16 07:45 325 MG Pantoprazole Sodium (Protonix Tab) 40 mg BID PO 09/17/16 21:00 10/17/16 20:59 09/18/16 07:44 40 MG Miscellaneous Information (Order Awaiting Action) 1 ea QS N/A 09/18/16 00:00 10/18/16 00:00 09/17/16 22:30 1 EA Lactobacillus Acidophilus 4 tab 4 tab DAILY PO 09/18/16 09:00 10/18/16 08:59 09/18/16 07:45 4 TAB Bumetanide/Syringe (Bumex IV/ Syringe) 8 ml @ 4 mls/min DAILY@ IV 09/18/16 11:00 10/18/16 10:59 Objective Vital Signs Date Time Temp Pulse Resp B/P Pulse Ox O2 Delivery O2 Flow Rate FiO2 09/18/16 08:11 36.7 71 20 120/67 93 2.0 09/18/16 04:10 Nasal Cannula 3.0 09/18/16 03:15 36.5 71 21 99/59 97 Nasal Cannula 3.0 09/18/16 00:31 36.7 70 21 94/58 96 Nasal Cannula 3.0 09/18/16 00:22 Nasal Cannula 3.0 09/17/16 19:45 36.3 72 24 121/64 94 Nasal Cannula 3.0 09/17/16 19:45 36.3 72 24 121/64 94 Nasal Cannula 3.0 09/17/16 18:58 70 22 134/59 96 Room Air 09/17/16 16:52 70 113/47 92 Nasal Cannula 3.0 09/17/16 15:49 Nasal Cannula 09/17/16 15:10 70 09/17/16 14:23 36.5 72 26 105/56 93 Room Air Physical Exam General Appearance: no apparent distress Eyes: sclerae normal Respiratory/Chest: no respiratory distress, + pertinent finding (breath sounds decreased in the bases, few scattered crackles above. no resp distress) Cardiovascular: regular rate, rhythm, + systolic murmur Abdomen: non tender, soft Extremities: + pedal edema Neurologic/Psychiatric: alert, oriented x 3 Skin: warm/dry Laboratory Results Last 24 Hours Test 09/17/16 15:19 09/17/16 15:45 09/17/16 16:00 09/17/16 16:21 Creatine Kinase MB Ratio 0.8 Urine Color YELLOW Urine Appearance CLEAR Urine pH 5.5 Urine Specific [place] 1.008 Urine Protein NEG Urine Glucose (UA) NEG Urine Ketones NEG Urine Occult Blood NEG Urine Nitrite NEG Urine Bilirubin NEG Urine Urobilinogen NEG Urine Leukocyte Esterase TRACE Urine WBC (Auto) 1-5 /hpf Urine RBC (Auto) 5-10 /hpf Urine Hyaline Casts (Auto) 1-5 /lpf Urine Epithelial Cells (Auto) 5-10 /lpf Urine Bacteria (Auto) NEG White Blood Count 6.21 K/uL Red Blood Count 3.04 M/uL Hemoglobin 9.8 g/dL Hematocrit 28.3 % Mean Corpuscular Volume 93.1 fL Mean Corpuscular Hemoglobin 32.2 pg Mean Corpuscular Hemoglobin Concent 34.6 g/dl Platelet Count 299 K/uL Mean Platelet Volume 9.4 fL Neutrophils (%) (Auto) 69.5 % Lymphocytes (%) (Auto) 13.5 % Monocytes (%) (Auto) 16.4 % Eosinophils (%) (Auto) 0.2 % Basophils (%) (Auto) 0.2 % Neutrophils # (Auto) 4.32 K/uL Lymphocytes # (Auto) 0.84 K/uL Monocytes # (Auto) 1.02 K/uL Eosinophils # (Auto) 0.01 K/uL Basophils # (Auto) 0.01 K/uL RDW Standard Deviation 47.7 fL RDW Coefficient of Variation 13.9 % Immature Granulocyte % (Auto) 0.2 % Immature Granulocyte # (Auto) 0.01 K/uL Prothrombin Time 35.9 SECONDS Prothromb Time International Ratio 3.2 Activated Partial Thromboplast Time 51.1 SECONDS Partial Thromboplastin Ratio 2.0 Sodium Level 127 mmol/L Potassium Level 4.9 mmol/L Chloride Level 88 mmol/L Carbon Dioxide Level 28 mmol/L Anion Gap 11.0 mmol/L Blood Urea Nitrogen 50 mg/dl Creatinine 1.40 mg/dl Est Creatinine Clear Calc Drug Dose 24.0 ml/min Estimated GFR () 38.5 Estimated GFR (Non- 33.2 BUN/Creatinine Ratio 35.9 Random Glucose 122 mg/dl Calcium Level 8.8 mg/dl Total Bilirubin 0.9 mg/dl Direct Bilirubin 0.4 mg/dl Aspartate Amino Transf (AST/SGOT) 30 U/L Alanine Aminotransferase (ALT/SGPT) 27 U/L Alkaline Phosphatase 64 U/L Total Creatine Kinase 153 U/L Creatine Kinase MB 1.2 ng/ml Total Protein 6.6 gm/dl Albumin 3.3 gm/dl Lipase 194 U/L Bedside Troponin I 0.010 ng/ml [id number] Natriuretic Peptide 3188 pg/ml Test 09/18/16 08:36 Sodium Level 130 mmol/L Potassium Level 4.4 mmol/L Chloride Level 90 mmol/L Carbon Dioxide Level 28 mmol/L Anion Gap 12.0 mmol/L Blood Urea Nitrogen 42 mg/dl Creatinine 1.30 mg/dl Est Creatinine Clear Calc Drug Dose 26.5 ml/min Estimated GFR () 42.1 Estimated GFR (Non- 36.3 BUN/Creatinine Ratio 32.5 Random Glucose 124 mg/dl Calcium Level 8.9 mg/dl Phosphorus Level 3.1 mg/dl Magnesium Level 1.8 mg/dl Assessment and Plan (1) Acute on chronic diastolic CHF (congestive heart failure) Assessment & Plan: Diuretics per Nephro and Cardio. Strict I&Os. Place [place]. (2) Acute kidney injury superimposed on CKD Assessment & Plan: Await guidance from Nephro regarding her diuretics. Will continue to hold her IVIS-I as her BP was soft this morning. (3) Acute on chronic respiratory failure with hypoxemia Assessment & Plan: Baseline oxygen requirement is 2lpm with exertion and HS. She is currently requiring 3lpm. Will titrate down as possible. (4) Hyponatremia Assessment & Plan: Per Nephro. Improving overnight. (5) Atrial fibrillation Assessment & Plan: Currently in v-paced rhythm. Warfarin 2mg daily. Check INR daily. (6) Osteoarthritis (7) Benign hypertension Assessment & Plan: Holding home amlodipine and benazepril given hypotension and [place] (8) DVT prophylaxis Assessment & Plan: on warfarin for afib CODE STATUS: DNR/DNI per discussion with patient. Continued [facility] stay due to: ambulation difficulties, multiple IV medications needed Discharge planning: detention facility (Await PT/OT recommendations, but I suspect she would benefit from SNF.)
--- NOTE | 2016-09-18 11:13 | Nephrology Consultation ---
Nephrology Consultation Date & Providers Date of Consultation: Sep 18, 2016. Primary Care Provider: Lisa Tyler DO Referring Provider: Reason for Consultation Evaluation management for hyponatremia, acute kidney injury and diuretic resistant volume overload. History of Present Illness Mindy is a 89-year-old female with past medical history significant for hypertension, CHF with diastolic dysfunction presented to the hospital with progressive worsening of lower extremity edema and shortness of breath and admitted with acute on chronic CHF exacerbation. nephrologic consult was requested for management of hyponatremia, acute kidney injury and volume overload. Electronic medical records were reviewed in detail during patient's visit. She was seen in her room with her granddaughter at bedside. Mindy has history of CHF with diastolic dysfunction. She has been having repeated hospital admission over last few months mostly with CHF exacerbation. She was admitted to the hospital in July with CHF exacerbation and on discharge she was on Bumex 1 milligram twice a day and metolazone 5 milligrams daily. After she went home she was progressively losing weight and was feeling weak and tired. Eventually in August she was again admitted to the hospital when she was found to be hyponatremic and Thought to be dehydrated. Hyponatremia at that time thought to be secondary to volume depletion and metolazone. Metolazone was discontinued with improvement in her serum sodium. She was on Bumex 1 milligram twice a day which was increased to 2 milligram twice a day as she was gaining weight with progressive lower extremity edema. Eventually she was discharged from the hospital with Bumex 2 milligrams twice a day. However, she reports that she did not notice significant increase in urine output and her lower extremity edema progressively worse and since discharged from the hospital and overall she was not feeling well and was getting progressively short of breath. Yesterday home visiting nurse noticed progressive worsening of lower extremity edema and Electrolyte abnormality and advised her to come to the ED. In emergency room chest x-ray showed pulmonary congestion with bilateral small pleural effusion. Lab showed serum sodium 127 and creatinine 1.4 with baseline creatinine less than 1. Her INR was 6. She was continued on Bumex 2 milligram p.o. twice a day without much improvement in her volume status or respiratory status. Repeat lab this morning shows serum sodium slightly improved to 130 and creatinine remained stable at 1.3, other electrolyte including potassium, magnesium and phosphate is normal. Urine electrolyte is pending. Currently overall she feels poorly and bothered by pain and swelling in her lower extremity. She denies any episode of chest pain. No fever, chills or acute illness. No change in her diet but her appetite is not that great. Allergies Coded Allergies: Morphine (Verified Allergy, Unknown, swelling, 09/17/16) Phenobarbital (Unverified Allergy, Unknown, ITCHINESS, 09/17/16) Inpatient Medications Current Inpatient Medications Medications (Trade) Dose Ordered Sig/Naren Route Start Time Stop Time Status Last Admin Dose Admin Acetaminophen (Tylenol Tab) 650 mg Q4H PRN PO 09/17/16 18:45 10/17/16 18:44 Ondansetron HCl (Zofran Inj) 4 mg Q6H PRN IV 09/17/16 18:45 10/17/16 18:44 Polyethylene (Miralax Powder Packet) 17 gm DAILY PRN PO 09/17/16 18:45 10/17/16 18:44 Bumetanide (Bumex Tab) 2 mg BID PO 09/17/16 21:00 10/17/16 20:59 Calcium/Vitamin D (Caltrate Plus Tab) 1 tab DAILY PO 09/18/16 09:00 10/18/16 08:59 Gabapentin (Neurontin Cap) 300 mg BID PO 09/17/16 21:00 10/17/16 20:59 09/17/16 21:43 300 MG Acetaminophen/ Hydrocodone Bitart ([place] 5/325 Tab) 1 tab Q6H PRN PO 09/17/16 18:45 10/01/16 18:44 Lorazepam (Ativan Tab) 0.5 mg HS PRN PO 09/17/16 18:45 10/17/16 18:44 09/17/16 21:48 0.5 MG Multivitamins/ Minerals (Multivitamin W/ Minerals Tab) 1 tab DAILY PO 09/18/16 09:00 10/18/16 08:59 Senna/Docusate Sodium (Senokot S Tab) 1 tab DAILY PRN PO 09/17/16 18:45 10/17/16 18:44 Simvastatin (Zocor Tab) 5 mg QPM PO 09/17/16 21:00 10/17/16 20:59 09/17/16 21:43 5 MG Ferrous Sulfate (Feosol Tab) 325 mg DAILY PO 09/18/16 09:00 10/18/16 08:59 Pantoprazole Sodium (Protonix Tab) 40 mg BID PO 09/17/16 21:00 10/17/16 20:59 09/17/16 21:43 40 MG Miscellaneous Information (Order Awaiting Action) 1 ea QS N/A 09/18/16 00:00 10/18/16 00:00 09/17/16 22:30 1 EA Lactobacillus Acidophilus (Floranex Tab) 4 tab DAILY PO 09/18/16 09:00 10/18/16 08:59 Family History Cancer Diabetes mellitus Heart disease Hypertension Lung disease Social History Smoking Status: Never Smoker Drug Use: none Marital Status: Occupation: retired Review of Systems A complete review of systems was performed. Pertinent positives are noted above. All other systems are negative. Physical Exam Date Time Temp Pulse Resp B/P Pulse Ox O2 Delivery O2 Flow Rate FiO2 09/18/16 04:10 Nasal Cannula 3.0 09/18/16 03:15 36.5 71 21 99/59 97 Nasal Cannula 3.0 09/18/16 00:31 36.7 70 21 94/58 96 Nasal Cannula 3.0 09/18/16 00:22 Nasal Cannula 3.0 09/17/16 19:45 36.3 72 24 121/64 94 Nasal Cannula 3.0 09/17/16 19:45 36.3 72 24 121/64 94 Nasal Cannula 3.0 09/17/16 18:58 70 22 134/59 96 Room Air 09/17/16 16:52 70 113/47 92 Nasal Cannula 3.0 09/17/16 15:49 Nasal Cannula 09/17/16 15:10 70 09/17/16 14:23 36.5 72 26 105/56 93 Room Air Laboratory Results Last 24 Hours Test 09/17/16 15:19 09/17/16 15:45 09/17/16 16:00 09/17/16 16:21 Creatine Kinase MB Ratio 0.8 Urine Color YELLOW Urine Appearance CLEAR Urine pH 5.5 Urine Specific [place] 1.008 Urine Protein NEG Urine Glucose (UA) NEG Urine Ketones NEG Urine Occult Blood NEG Urine Nitrite NEG Urine Bilirubin NEG Urine Urobilinogen NEG Urine Leukocyte Esterase TRACE Urine WBC (Auto) 1-5 /hpf Urine RBC (Auto) 5-10 /hpf Urine Hyaline Casts (Auto) 1-5 /lpf Urine Epithelial Cells (Auto) 5-10 /lpf Urine Bacteria (Auto) NEG White Blood Count 6.21 K/uL Red Blood Count 3.04 M/uL Hemoglobin 9.8 g/dL Hematocrit 28.3 % Mean Corpuscular Volume 93.1 fL Mean Corpuscular Hemoglobin 32.2 pg Mean Corpuscular Hemoglobin Concent 34.6 g/dl Platelet Count 299 K/uL Mean Platelet Volume 9.4 fL Neutrophils (%) (Auto) 69.5 % Lymphocytes (%) (Auto) 13.5 % Monocytes (%) (Auto) 16.4 % Eosinophils (%) (Auto) 0.2 % Basophils (%) (Auto) 0.2 % Neutrophils # (Auto) 4.32 K/uL Lymphocytes # (Auto) 0.84 K/uL Monocytes # (Auto) 1.02 K/uL Eosinophils # (Auto) 0.01 K/uL Basophils # (Auto) 0.01 K/uL RDW Standard Deviation 47.7 fL RDW Coefficient of Variation 13.9 % Immature Granulocyte % (Auto) 0.2 % Immature Granulocyte # (Auto) 0.01 K/uL Prothrombin Time 35.9 SECONDS Prothromb Time International Ratio 3.2 Activated Partial Thromboplast Time 51.1 SECONDS Partial Thromboplastin Ratio 2.0 Sodium Level 127 mmol/L Potassium Level 4.9 mmol/L Chloride Level 88 mmol/L Carbon Dioxide Level 28 mmol/L Anion Gap 11.0 mmol/L Blood Urea Nitrogen 50 mg/dl Creatinine 1.40 mg/dl Est Creatinine Clear Calc Drug Dose 24.0 ml/min Estimated GFR () 38.5 Estimated GFR (Non- 33.2 BUN/Creatinine Ratio 35.9 Random Glucose 122 mg/dl Calcium Level 8.8 mg/dl Total Bilirubin 0.9 mg/dl Direct Bilirubin 0.4 mg/dl Aspartate Amino Transf (AST/SGOT) 30 U/L Alanine Aminotransferase (ALT/SGPT) 27 U/L Alkaline Phosphatase 64 U/L Total Creatine Kinase 153 U/L Creatine Kinase MB 1.2 ng/ml Total Protein 6.6 gm/dl Albumin 3.3 gm/dl Lipase 194 U/L Bedside Troponin I 0.010 ng/ml [id number] Natriuretic Peptide 3188 pg/ml Impression Mindy is a 89-year-old female with hypertension, CHF with chronic diastolic dysfunction and diuretic resistant volume overload admitted with progressive worsening of lower extremity edema and shortness of breath. She has been on Bumex 2 milligram twice a day at home. she denied any acute illness, change in her diet or medication and she reports taking Bumex regularly. On admission she was found to have hyponatremia serum sodium 127 which improved to 130 this morning. Also found to have acute kidney injury creatinine 1.4 with her baseline creatinine at 0.9. Over last few months she had recurrent hospital admission for CHF exacerbation. In July she was started on Bumex 1 milligram twice a day and metolazone however she developed hyponatremia and significant volume depletion with metolazone. during her hospital admission in August for hyponatremia metolazone was discontinued and Bumex was increased to 2 milligram twice a day however she reports poor response to Bumex and progressive worsening of her volume status. Echo in June 2016 showed moderate LVH, elevated right ventricular pressure and normal EF 50-55 percent. She also has chronic anemia, during last admission iron study showed significant iron deficiency but stool occult blood test was negative. Has history of AFib, on Coumadin on admission her INR was supra therapeutic which improved to 3.2 from 6. Recommendations -- Change Bumex to 2 milligram IV twice a day. -- Monitor intake and output closely, aim for at least 1 liter net negative per 24 hours -- limit free water intake to less than 1200 mL per day -- Avoid thiazide diuretics, if needed will increase Bumex to 3 milligrams twice a day -- wait for urine electrolyte and urine osmolality --agree with holding amlodipine benazepril for now as blood pressure has been running soft. -- Will start on Venofer IV as patient has iron deficiency and she has pretty significant history of constipation. --repeat renal panel and electrolyte in a.m., check magnesium and phosphate Q 48 hours while patient is on high dose of diuretics -- patient and granddaughter decided after discharge patient would like to go to long-term care facility, request social service to discuss with family about discharge planning. Thank you for allowing me to participate in your patient's care. It was a pleasure to see Mindy This chart was completed utilizing [employer] Speech and voice recognition software. Grammatical errors, random word insertions, pronoun errors and incomplete sentences are occasional consequences of this system. Any questions or concerns about the content, text or information contained within the body of this dictation should be addressed directly to the physician for clarification.
[2016-09-18] MEDS: BUMETANIDE IV 2 MG in SYRINGE 0 ML IV SCH ×2 (11:17→16:41)
[2016-09-18] MEDS: IRON SUCROSE INJ 200 MG in SODIUM CHLORIDE 0.9% 100ML 100 ML IV SCH (12:43)
[2016-09-18] MEDS: WARFARIN SOD 2 MG TAB PO SCH (16:39)
[2016-09-18] MEDS: SIMVASTATIN 5 MG TAB PO SCH (20:13)
[2016-09-19 00:15] VITALS: BP 103/58; PULSE 70; TEMP 36.9; O2SAT 92
--- NOTE | 2016-09-19 01:48 | CARDIOLOGY CONSULTATION ---
DATE OF CONSULTATION: 09/18/2016 REASON FOR CONSULTATION: Heart failure. REFERRING PHYSICIAN: Dr. Rogers. HISTORY OF PRESENT ILLNESS: Mrs. Akhtar is a very pleasant 89-year-old woman with a history of chronic diastolic heart failure, well known to me from prior hospitalizations and outpatient followup. She was readmitted in the setting of progressive shortness of breath, lower extremity edema and renal insufficiency on outpatient labs. The patient has had now 4 hospitalizations for heart failure related issues over the last 4 months. She has been maintained on escalating doses of diuretics, was previously switched to Bumex at a prior hospitalization. With Bumex, still had lower extremity edema and placed on p.r.n. metolazone. This was complicated by hypokalemia with hyponatremia and renal insufficiency with last hospitalization occurring in the beginning of August. Since that time, she has noted that her weight has been up. She was continued on 2 mg of Bumex but has had minimal benefit. She is followed closely by home health, and due to concerns for progressive lower extremity edema and shortness of breath, repeat labs were obtained which noted mild renal insufficiency with a creatinine up to 1.4 from a baseline of approximately 0.9-1, hyponatremia with sodium of 127, as well as supratherapeutic INR in the 6s. She was instructed to present to the Emergency Department. Upon presentation, the patient was hemodynamically stable. Her repeat labs were improved with INR down to 3.2. She was started back on her home Bumex and admitted to telemetry. PAST MEDICAL HISTORY: 1. Chronic diastolic heart failure. 2. Persistent atrial fibrillation. 3. Mild mitral regurgitation with mild mitral stenosis. 4. Status post dual-chamber pacemaker for complete heart block. 5. Chronic venous insufficiency. 6. Nonsustained VT. 7. Chronic renal insufficiency. 8. Anemia. 9. GERD. 10. Constipation. 11. Hypertension. 12. Lumbar spinal stenosis. 13. Osteoporosis. FAMILY HISTORY: Mother had congestive heart failure, but no history of premature coronary artery disease or sudden cardiac . SOCIAL HISTORY: She lives alone but close to her family, has home health who checks on her frequently. Denies heavy alcohol or drug use or tobacco. HOME MEDICATIONS: Include: 1. Omeprazole 20. 3. Polyethylene glycol 3350. 4. Bumex 2 mg b.i.d. 5. Simvastatin 5. 7. Hydrocodone/acetaminophen. 8. B12. 9. Centrum vitamin. 10. Potassium 20 mEq twice daily. 11. Vitamin D. 12. Amlodipine/benazepril combination 10/20 mg daily. 13. Lorazepam. 14. Coumadin. 15. Gabapentin. 16. Voltaren transdermal gel. 17. Tylenol p.r.n. 18. Zyrtec p.r.n. 19. Benadryl p.r.n. REVIEW OF SYSTEMS: A 10-point review of systems was completed and otherwise negative unless stated in HPI. PHYSICAL EXAMINATION: GENERAL: The patient appears comfortable. She appears frail and elderly. HEENT: Sclerae are anicteric. Oropharynx is clear. NECK: Neck veins are difficult to assess. LUNGS: She has crackles at her bases bilaterally. CARDIAC: She is regular with 2/6 holosystolic murmur heard best at the apex. ABDOMEN: Soft, nontender, with positive bowel sounds. EXTREMITIES: Significant edema with 2 to 3+ edema and surrounding erythema up to her knees. She has palpable distal pulses. NEUROLOGIC: Cranial nerves II-XII are grossly intact. The remainder of exam is nonfocal. PSYCHIATRIC: She is alert and appropriate x3. DATA: WBC 6.2, hemoglobin 9.8, platelets of 299. INR of 3.2. Sodium 130, potassium 4.4, BUN of 42, creatinine of 1.3. NT-proBNP was 3188. Albumin of 3.3. Prior cardiac testing, last echo 06/2016 showed normal LV size, mild LVH, EF 60%, normal RV size and function, mild , severe MAC with mild MR and an estimated PASP of 40-50. EKG showed underlying sinus rhythm with ventricular paced rhythm at 70 and telemetry reviewed and again showed ventricularly paced rhythm at 70. IMPRESSION AND PLAN: 1. Acute on chronic diastolic heart failure. 2. Acute on chronic renal insufficiency. 3. Supratherapeutic INR. 4. Hyponatremia. 5. Persistent atrial fibrillation. 6. Post dual-chamber pacemaker for complete heart block. The patient readmitted in the setting of acute on chronic heart failure unresponsive to home diuretics. The patient with significant systemic venous congestion on exam as well as new pulmonary congestion from most recent exam approximately 10 days ago. The patient has been started on IV Bumex and agree with continued IV diuresis. I feel that the patient is significantly volume up from her baseline back in June and July and will need significant diuresis. The patient and granddaughter have voiced their hope for rehab post hospitalization. Long-term, may need to switch back to higher dose of Lasix on discharge as Bumex seems not to have been sufficient for fluid management. We will continue to follow while in hospital. Thank you for allowing us to participate in the care of this patient. Please contact with any questions. NADINED
[2016-09-19 04:44] VITALS: BP 104/62; PULSE 70; TEMP 37.1; O2SAT 94
[2016-09-19 07:12] LABS: INR 2.4 (0.9-1.1); PROTHROMBIN TIME (PATIENT) 27.1 SECONDS (9.0-12.0)
[2016-09-19 07:43] LABS: BUN/CREATININE RATIO 35.9 (10-20); CALCIUM 8.5 mg/dl (8.5-10.1); CREATININE 1.1 mg/dl (0.60-1.20); MAGNESIUM 1.9 mg/dl (1.8-2.4)
[2016-09-19 08:06] VITALS: BP 118/67; PULSE 70; TEMP 36.9; O2SAT 96
[2016-09-19] MEDS: BUMETANIDE IV 2 MG in SYRINGE 0 ML IV SCH ×2 (08:18→16:24)
[2016-09-19] MEDS: PANTOprazole SOD 40 MG TAB PO SCH ×2 (08:18→22:16)
[2016-09-19] MEDS: CEROVITE ADV FORMULA TAB PO SCH (08:19)
[2016-09-19] MEDS: CALCIUM 600MG + VIT D 400 IU TAB PO SCH (08:19)
[2016-09-19] MEDS: GABAPENTIN 300 MG CAP PO SCH ×2 (08:19→22:15)
[2016-09-19] MEDS: DOCUSATE SODIUM/SENNA 50/8.6MG TAB PO PRN (08:19)
[2016-09-19] MEDS: LACTOBACILLUS ACIDOPHILUS (FLORANEX) TAB PO SCH (08:19)
[2016-09-19] MEDS: POLYETHYLENE (MIRALAX) 17 GM PACK PO PRN (08:30)
[2016-09-19] MEDS: HYDROCODONE/ACETAMOPHEN 5/325MG TAB PO PRN ×3 (08:32→22:15)
--- NOTE | 2016-09-19 11:18 | Cardiology Follow-Up ---
Subjective Date of Service: Sep 19, 2016. Pt evaluation today including: conversation w/ patient, physical exam, chart review, lab review, review of studies, review of inpatient medication list History of Present Illness Patient presented to the ED 09/17/2016 due to concerns for progressive lower extremity edema and shortness of breath as well as renal insufficiency ( creatinine up to 1.4 from baseline 0.9-1) and hyponatremia (sodium 127). She was admitted to telemetry for acute on chronic diastolic heart failure. Her Bumex was initially continued at 2 mg PO BID, but has subsequently be changed to 2 mg IV BID. Her creatinine has improved to 1.10 and sodium has increased to 134. She has had a net loss of 896 mL thus far. Patient seen at bedside this morning. Her grandson and great grand daughter accompany her in the room. She reports that her breathing has improved. She denies orthopnea or PND. She continues to note swelling and pain of her legs. She denies chest discomfort, lightheadedness, dizziness, syncope, or presyncope. Social History Smoking Status: Never Smoker History of Alcohol Use: No Review of Systems Respiratory: + dyspnea on exertion, + shortness of breath Cardiac: + edema Objective Vital Signs Past 12 Hours Date Time Temp Pulse Resp B/P Pulse Ox O2 Delivery O2 Flow Rate FiO2 09/19/16 08:06 36.9 70 18 118/67 96 Nasal Cannula 2.0 09/19/16 08:05 Nasal Cannula 2.0 09/19/16 04:44 37.1 70 22 104/62 94 Nasal Cannula 3.0 09/19/16 04:23 Nasal Cannula 3.0 09/19/16 00:15 36.9 70 20 103/58 92 Nasal Cannula 3.0 09/19/16 00:13 Nasal Cannula 3.0 Last Recorded Weight-Kilograms: 77.600 Intake & Output 8-Hour Column 09/18/16 09/19/16 09/19/16 16:00 00:00 08:00 Intake Total 529 ml 275 ml 250 ml Output Total 350 ml 650 ml 1000 ml Balance 179 ml -375 ml -750 ml 24-Hour Column 09/19/16 08:00 Intake Total 1054 ml Output Total 2000 ml Balance -946 ml Physical Exam Constitutional: Alert, oriented, in no acute distress HEENT: Head is atraumatic and normocephalic. EOMs intact. Sclera anicteric. Face is symmetric. No perioral cyanosis. Mucous membranes moist. Neck: Supple, difficult to assess JVD Pulmonary: Normal respiratory effort, bibasilar crackles, expiratory wheezing Cardiac: Regular rate and rhythm, normal S1 and S2, no gallops, no rubs, 2/6 basal systolic ejection murmur Extremities: +2-3 lower extremity edema bilaterally. No clubbing or cyanosis. Pulses intact Abdomen: Normal bowel sounds, soft, non-tender, no abdominal mass palpated Skin: Normal skin color, turgor, and pigmentation, no rash, no skin lesions Neurological: Oriented to person, place, and time Data Laboratory Results: Last 24 Hours Test 09/19/16 06:08 Prothrombin Time 27.1 SECONDS Prothromb Time International Ratio 2.4 Sodium Level 134 mmol/L Potassium Level 4.0 mmol/L Chloride Level 94 mmol/L Carbon Dioxide Level 29 mmol/L Anion Gap 11.0 mmol/L Blood Urea Nitrogen 40 mg/dl Creatinine 1.10 mg/dl Est Creatinine Clear Calc Drug Dose 30.4 ml/min Estimated GFR () 51.5 Estimated GFR (Non- 44.5 BUN/Creatinine Ratio 35.9 Random Glucose 87 mg/dl Calcium Level 8.5 mg/dl Magnesium Level 1.9 mg/dl Telemetry reviewed: Ventricularly paced rhythm Assessment and Plan 1. Acute on chronic diastolic CHF: She continues to appear hypervolemic on examination. Her renal function and sodium have improved. Continue IV diuresis with close monitoring of I&O's as well as PRP. Continue sodium restriction. Consider switching back to higher dose of Lasix on discharge as Bumex seems to insufficient for fluid management. 2. Persistent atrial fibrillation: Device check on 09/08/2016 as an outpatient shows that her atrial fibrillation has been continuous since around 07/01/2016. Her ventricular rate however is not affected by the atrial fibrillation as she is in complete heart block and the device automatically switches to a single- chamber mode. Continue Coumadin for thromboembolic prophylaxis with goal INR of 2-3. 3. Dual-chamber pacemaker implantation: She follows in device clinic with Dr. Heck as an outpatient. 4. Hypertension: Amlodipine/benazepril recently placed on hold as an outpatient due to relative hypotension. Her bp has been well controlled during this admission. No changes in therapy recommended. 5. Dyslipidemia: Continue statin therapy. Will continue to follow along during patient's admission.
--- NOTE | 2016-09-19 11:19 | Hospitalist Progress Note ---
Hospitalist Progress Note Date of Service Sep 19, 2016. Subjective Pt evaluation today including: conversation w/ patient, physical exam, chart review, lab review, review of inpatient medication list Pain: pain in b/l legs improved from yesterday Voiding: arteaga catheter in place No new complaints at this time. Nephrology and Cardiology input noted and appreciated. Medications Current Inpatient Medications Medications (Trade) Dose Ordered Sig/Naren Route Start Time Stop Time Status Last Admin Dose Admin Acetaminophen (Tylenol Tab) 650 mg Q4H PRN PO 09/17/16 18:45 10/17/16 18:44 Ondansetron HCl (Zofran Inj) 4 mg Q6H PRN IV 09/17/16 18:45 10/17/16 18:44 Polyethylene (Miralax Powder Packet) 17 gm DAILY PRN PO 09/17/16 18:45 10/17/16 18:44 09/18/16 07:43 17 GM Calcium/Vitamin D (Caltrate Plus Tab) 1 tab DAILY PO 09/18/16 09:00 10/18/16 08:59 09/19/16 08:19 1 TAB Gabapentin (Neurontin Cap) 300 mg BID PO 09/17/16 21:00 10/17/16 20:59 09/19/16 08:19 300 MG Acetaminophen/ Hydrocodone Bitart ([place] 5/325 Tab) 1 tab Q6H PRN PO 09/17/16 18:45 10/01/16 18:44 09/19/16 08:32 1 TAB Lorazepam (Ativan Tab) 0.5 mg HS PRN PO 09/17/16 18:45 10/17/16 18:44 09/17/16 21:48 0.5 MG Multivitamins/ Minerals (Multivitamin W/ Minerals Tab) 1 tab DAILY PO 09/18/16 09:00 10/18/16 08:59 09/19/16 08:19 1 TAB Senna/Docusate Sodium (Senokot S Tab) 1 tab DAILY PRN PO 09/17/16 18:45 10/17/16 18:44 09/19/16 08:19 1 TAB Simvastatin (Zocor Tab) 5 mg QPM PO 09/17/16 21:00 10/17/16 20:59 09/18/16 20:13 5 MG Pantoprazole Sodium (Protonix Tab) 40 mg BID PO 09/17/16 21:00 10/17/16 20:59 09/19/16 08:18 40 MG Miscellaneous Information (Order Awaiting Action) 1 ea QS N/A 09/18/16 00:00 10/18/16 00:00 09/18/16 21:23 1 EA Lactobacillus Acidophilus 4 tab 4 tab DAILY PO 09/18/16 09:00 10/18/16 08:59 09/19/16 08:19 4 TAB Bumetanide/Syringe (Bumex IV/ Syringe) 8 ml @ 4 mls/min DAILY@ IV 09/18/16 11:00 10/18/16 10:59 09/19/16 08:18 4 MLS/MIN Warfarin Sodium 2 mg 2 mg DAILY@16 PO 09/18/16 16:00 10/18/16 15:59 09/18/16 16:39 2 MG Iron Sucrose/ Sodium Chloride (Venofer Inj/Nss 100ml) 110 ml @ 220 mls/hr Q2D@1200 IV 09/18/16 12:00 09/26/16 12:29 09/18/16 12:43 220 MLS/HR Objective Vital Signs Date Time Temp Pulse Resp B/P Pulse Ox O2 Delivery O2 Flow Rate FiO2 09/19/16 08:06 36.9 70 18 118/67 96 Nasal Cannula 2.0 09/19/16 08:05 Nasal Cannula 2.0 09/19/16 04:44 37.1 70 22 104/62 94 Nasal Cannula 3.0 09/19/16 04:23 Nasal Cannula 3.0 09/19/16 00:15 36.9 70 20 103/58 92 Nasal Cannula 3.0 09/19/16 00:13 Nasal Cannula 3.0 09/18/16 20:21 Nasal Cannula 3.0 09/18/16 20:01 36.7 72 18 94/53 92 Nasal Cannula 3.0 09/18/16 16:51 69 135/81 09/18/16 16:00 94 Nasal Cannula 3.0 09/18/16 15:53 36.6 70 18 97/52 95 Nasal Cannula 3.0 09/18/16 15:52 36.6 70 18 97/59 95 Nasal Cannula 3.0 09/18/16 12:00 98 Nasal Cannula 3.0 09/18/16 11:36 36.6 71 20 104/60 93 2.0 Physical Exam General Appearance: no apparent distress Eyes: sclerae normal Respiratory/Chest: no respiratory distress, + crackles (in both bases) Cardiovascular: regular rate, rhythm Abdomen: non tender, soft Extremities: + pedal edema Neurologic/Psychiatric: alert, oriented x 3 Skin: warm/dry Laboratory Results Last 24 Hours Test 09/19/16 06:08 Prothrombin Time 27.1 SECONDS Prothromb Time International Ratio 2.4 Sodium Level 134 mmol/L Potassium Level 4.0 mmol/L Chloride Level 94 mmol/L Carbon Dioxide Level 29 mmol/L Anion Gap 11.0 mmol/L Blood Urea Nitrogen 40 mg/dl Creatinine 1.10 mg/dl Est Creatinine Clear Calc Drug Dose 30.4 ml/min Estimated GFR () 51.5 Estimated GFR (Non- 44.5 BUN/Creatinine Ratio 35.9 Random Glucose 87 mg/dl Calcium Level 8.5 mg/dl Magnesium Level 1.9 mg/dl Assessment and Plan (1) Acute on chronic diastolic CHF (congestive heart failure) Assessment & Plan: Bumex switched to IV. 1200cc fluid restrict. Strict I&Os. Keep Arteaga. (2) Acute kidney injury superimposed on CKD Assessment & Plan: Cr actually improved since admission. Continue to monitor closely while aggressively diuresing. Will continue to hold her IVIS-I as her BP has been soft. (3) Acute on chronic respiratory failure with hypoxemia Assessment & Plan: Improved. She's back down to her baseline 2lpm oxygen (4) Hyponatremia Assessment & Plan: Improving. Will monitor. (5) Atrial fibrillation Assessment & Plan: Currently in v-paced rhythm. Warfarin 2mg daily. Check INR daily. (6) Osteoarthritis Assessment & Plan: Pain controlled with prn [place], which she also takes at home. (7) Benign hypertension Assessment & Plan: Holding home amlodipine and benazepril given hypotension and AUSTYN (8) DVT prophylaxis Assessment & Plan: on warfarin for afib CODE STATUS: DNR/DNI per discussion with patient. Continued [facility] stay due to: multiple IV medications needed Discharge planning: shelter facility
--- NOTE | 2016-09-19 11:32 | Nephrology Progress Note ---
Nephrology Progress Note Date of Service Sep 19, 2016. Chief Complaint F/U for hyponatremia, acute kidney injury and diuretic resistant volume overload. Juan Guillen was seen and examined in her room this morning. She denies any shortness of breath or chest pain however she is bothered by pain in her both lactic which she has been having chronic daily specially as her lower extremity edema has been worsening. Has some mild erythema of leg as well. has been responding well to diuretics and net negative more than 750 mL overnight. Blood pressure has been stable. Serum sodium improved to 134 and creatinine improved to 1.1. Review of Systems A complete review of systems was performed. Pertinent positives are noted above. All other systems are negative. Vital Signs Last 8 Hrs Date Time Temp Pulse Resp B/P Pulse Ox O2 Delivery O2 Flow Rate FiO2 09/19/16 04:44 37.1 70 22 104/62 94 Nasal Cannula 3.0 09/19/16 04:23 Nasal Cannula 3.0 I & O 24-Hour Column 09/19/16 08:00 Intake Total 1054 ml Output Total 2000 ml Balance -946 ml Last Recorded Weight Weight (Kilograms): 77.600 Physical Exam GENERAL: Elderly female, AAA x 3, pleasant, ill-appearing, not in any distress. NECK: Supple, no JVD. RESPIRATORY: Normal breathing efforts, no accessory muscle use, clear to auscultation bilaterally, no wheezes or rales. CARDIOVASCULAR: S1, S2 normal, rhythm irregular. EXTREMITY: bilateral 2 to 3+ lower extremity edema with mild erythema and tenderness. NEURO: speech fluent. PSYCHIATRY: Normal mood and judgment Family History Cancer Diabetes mellitus Heart disease Hypertension Lung disease Social History Smoking Status: Never smoker Drug Use: none Marital Status: Occupation: retired Laboratory Results Past 24 Hours 09/19/16 06:08 Test 09/19/16 06:08 Prothrombin Time 27.1 SECONDS (9.0-12.0) Prothromb Time International Ratio 2.4 (0.9-1.1) Anion Gap 11.0 mmol/L (3-11) Est Creatinine Clear Calc Drug Dose 30.4 ml/min Estimated GFR () 51.5 Estimated GFR (Non- 44.5 BUN/Creatinine Ratio 35.9 (10-20) Calcium Level 8.5 mg/dl (8.5-10.1) Magnesium Level 1.9 mg/dl (1.8-2.4) Allergies Coded Allergies: Morphine (Verified Allergy, Unknown, swelling, 09/17/16) Phenobarbital (Unverified Allergy, Unknown, ITCHINESS, 09/17/16) Medications Current Inpatient Medications Medications (Trade) Dose Ordered Sig/Naren Route Start Time Stop Time Status Last Admin Dose Admin Acetaminophen (Tylenol Tab) 650 mg Q4H PRN PO 09/17/16 18:45 10/17/16 18:44 Ondansetron HCl (Zofran Inj) 4 mg Q6H PRN IV 09/17/16 18:45 10/17/16 18:44 Polyethylene (Miralax Powder Packet) 17 gm DAILY PRN PO 09/17/16 18:45 10/17/16 18:44 09/18/16 07:43 17 GM Calcium/Vitamin D (Caltrate Plus Tab) 1 tab DAILY PO 09/18/16 09:00 10/18/16 08:59 09/19/16 08:19 1 TAB Gabapentin (Neurontin Cap) 300 mg BID PO 09/17/16 21:00 10/17/16 20:59 09/19/16 08:19 300 MG Acetaminophen/ Hydrocodone Bitart ([place] 5/325 Tab) 1 tab Q6H PRN PO 09/17/16 18:45 10/01/16 18:44 09/19/16 08:32 1 TAB Lorazepam (Ativan Tab) 0.5 mg HS PRN PO 09/17/16 18:45 10/17/16 18:44 09/17/16 21:48 0.5 MG Multivitamins/ Minerals (Multivitamin W/ Minerals Tab) 1 tab DAILY PO 09/18/16 09:00 10/18/16 08:59 09/19/16 08:19 1 TAB Senna/Docusate Sodium (Senokot S Tab) 1 tab DAILY PRN PO 09/17/16 18:45 10/17/16 18:44 09/19/16 08:19 1 TAB Simvastatin (Zocor Tab) 5 mg QPM PO 09/17/16 21:00 10/17/16 20:59 09/18/16 20:13 5 MG Pantoprazole Sodium (Protonix Tab) 40 mg BID PO 09/17/16 21:00 10/17/16 20:59 09/19/16 08:18 40 MG Miscellaneous Information (Order Awaiting Action) 1 ea QS N/A 09/18/16 00:00 10/18/16 00:00 09/18/16 21:23 1 EA Lactobacillus Acidophilus 4 tab 4 tab DAILY PO 09/18/16 09:00 10/18/16 08:59 09/19/16 08:19 4 TAB Bumetanide/Syringe (Bumex IV/ Syringe) 8 ml @ 4 mls/min DAILY@ IV 09/18/16 11:00 10/18/16 10:59 09/19/16 08:18 4 MLS/MIN Warfarin Sodium 2 mg 2 mg DAILY@16 PO 09/18/16 16:00 10/18/16 15:59 09/18/16 16:39 2 MG Iron Sucrose/ Sodium Chloride (Venofer Inj/Nss 100ml) 110 ml @ 220 mls/hr Q2D@1200 IV 09/18/16 12:00 09/26/16 12:29 09/18/16 12:43 220 MLS/HR Impression Mindy is a 89-year-old female with hypertension, CHF with chronic diastolic dysfunction and diuretic resistant volume overload admitted with progressive worsening of lower extremity edema and shortness of breath. She has been on Bumex 2 milligram twice a day at home. she denied any acute illness, change in her diet or medication and she reports taking Bumex regularly. On admission she was found to have hyponatremia serum sodium 127 which improved to 130 this morning. Also found to have acute kidney injury creatinine 1.4 with her baseline creatinine at 0.9. Over last few months she had recurrent hospital admission for CHF exacerbation. In July she was started on Bumex 1 milligram twice a day and metolazone however she developed hyponatremia and significant volume depletion with metolazone. during her hospital admission in August for hyponatremia metolazone was discontinued and Bumex was increased to 2 milligram twice a day however she reports poor response to Bumex and progressive worsening of her volume status. Echo in June 2016 showed moderate LVH, elevated right ventricular pressure and normal EF 50-55 percent. She also has chronic anemia, during last admission iron study showed significant iron deficiency but stool occult blood test was negative. Has history of AFib, on Coumadin on admission her INR was supra therapeutic which improved to 3.2 from 6. Recommendations -- continue Bumex to 2 milligram IV twice a day, aim for at least 1 liter net negative per 24 hours -- limit free water intake to less than 1200 mL per day -- Avoid thiazide diuretics, if needed will increase Bumex to 3 milligrams twice a day -- if volume status improve and the patient continues to be net negative, will consider changing Bumex to well if by tomorrow --continue on Venofer IV as patient has iron deficiency and she has pretty significant history of constipation. -- renal panel daily , magnesium and phosphate Q 48 hours while patient is on high dose of diuretics --start on voltaren gel for her lower extremity as she used at home and seemed to be helping her Will follow
[2016-09-19 11:57] VITALS: BP 100/58; PULSE 72; TEMP 36.5; O2SAT 96
[2016-09-19] MEDS: DICLOFENAC SOD 1% GEL 100 GM TUBE EXT SCH ×2 (12:00→16:18)
[2016-09-19 15:52] VITALS: BP 114/73; PULSE 70; TEMP 36.6; O2SAT 93
[2016-09-19] MEDS: WARFARIN SOD 2 MG TAB PO SCH (16:19)
[2016-09-19 19:26] VITALS: BP 109/71; PULSE 70; TEMP 36.5; O2SAT 96
[2016-09-19] MEDS: SIMVASTATIN 5 MG TAB PO SCH (22:16)
[2016-09-20] VITALS (7 sets, daily range): BP systolic 93–123; BP diastolic 55–73; PULSE 68–85; TEMP 36.4–37; O2SAT 89–98
[2016-09-20] MEDS: LORAZEPAM 0.5 MG TAB PO PRN (01:00)
[2016-09-20 07:35] LABS: INR 2.4 (0.9-1.1); PROTHROMBIN TIME (PATIENT) 26.8 SECONDS (9.0-12.0)
[2016-09-20 07:55] LABS: BUN/CREATININE RATIO 34.2 (10-20); CALCIUM 8.6 mg/dl (8.5-10.1); CREATININE 0.96 mg/dl (0.60-1.20); MAGNESIUM 1.8 mg/dl (1.8-2.4); PHOSPHORUS 3.1 mg/dl (2.5-4.9); POTASSIUM 3.8 mmol/L (3.5-5.1)
[2016-09-20] MEDS: CEROVITE ADV FORMULA TAB PO SCH (07:55)
[2016-09-20] MEDS: DOCUSATE SODIUM/SENNA 50/8.6MG TAB PO PRN (07:55)
[2016-09-20] MEDS: GABAPENTIN 300 MG CAP PO SCH ×2 (07:56→22:05)
[2016-09-20] MEDS: DICLOFENAC SOD 1% GEL 100 GM TUBE EXT SCH ×3 (07:56→16:21)
[2016-09-20] MEDS: CALCIUM 600MG + VIT D 400 IU TAB PO SCH (07:56)
[2016-09-20] MEDS: LACTOBACILLUS ACIDOPHILUS (FLORANEX) TAB PO SCH (08:02)
[2016-09-20] MEDS: PANTOprazole SOD 40 MG TAB PO SCH ×2 (08:02→22:05)
[2016-09-20] MEDS: BUMETANIDE IV 2 MG in SYRINGE 0 ML IV SCH ×2 (08:34→16:23)
[2016-09-20] MEDS: HYDROCODONE/ACETAMOPHEN 5/325MG TAB PO PRN ×3 (08:35→22:06)
--- NOTE | 2016-09-20 09:54 | Hospitalist Progress Note ---
Hospitalist Progress Note Date of Service Sep 20, 2016. Subjective Pt evaluation today including: conversation w/ patient, physical exam, lab review, review of inpatient medication list Voiding: arteaga catheter in place Patient denies any new complaints. She had a 48 beat run of what appears to be v tach (?vs atrial flutter) overnight during her sleep. Medications Current Inpatient Medications Medications (Trade) Dose Ordered Sig/Naren Route Start Time Stop Time Status Last Admin Dose Admin Acetaminophen (Tylenol Tab) 650 mg Q4H PRN PO 09/17/16 18:45 10/17/16 18:44 Ondansetron HCl (Zofran Inj) 4 mg Q6H PRN IV 09/17/16 18:45 10/17/16 18:44 Polyethylene (Miralax Powder Packet) 17 gm DAILY PRN PO 09/17/16 18:45 10/17/16 18:44 09/19/16 08:30 17 GM Calcium/Vitamin D (Caltrate Plus Tab) 1 tab DAILY PO 09/18/16 09:00 10/18/16 08:59 09/20/16 07:56 1 TAB Gabapentin (Neurontin Cap) 300 mg BID PO 09/17/16 21:00 10/17/16 20:59 09/20/16 07:56 300 MG Acetaminophen/ Hydrocodone Bitart ([place] 5/325 Tab) 1 tab Q6H PRN PO 09/17/16 18:45 10/01/16 18:44 09/20/16 08:35 1 TAB Lorazepam (Ativan Tab) 0.5 mg HS PRN PO 09/17/16 18:45 10/17/16 18:44 09/20/16 01:00 0.5 MG Multivitamins/ Minerals (Multivitamin W/ Minerals Tab) 1 tab DAILY PO 09/18/16 09:00 10/18/16 08:59 09/20/16 07:55 1 TAB Senna/Docusate Sodium (Senokot S Tab) 1 tab DAILY PRN PO 09/17/16 18:45 10/17/16 18:44 09/20/16 07:55 1 TAB Simvastatin (Zocor Tab) 5 mg QPM PO 09/17/16 21:00 10/17/16 20:59 09/19/16 22:16 5 MG Pantoprazole Sodium (Protonix Tab) 40 mg BID PO 09/17/16 21:00 10/17/16 20:59 09/20/16 08:02 40 MG Miscellaneous Information (Order Awaiting Action) 1 ea QS N/A 09/18/16 00:00 10/18/16 00:00 09/18/16 21:23 1 EA Lactobacillus Acidophilus (Floranex Tab) 4 tab DAILY PO 09/18/16 09:00 10/18/16 08:59 09/20/16 08:02 4 TAB Warfarin Sodium 2 mg 2 mg DAILY@16 PO 09/18/16 16:00 10/18/16 15:59 09/19/16 16:19 2 MG Iron Sucrose/ Sodium Chloride (Venofer Inj/Nss 100ml) 110 ml @ 220 mls/hr Q2D@1200 IV 09/18/16 12:00 09/26/16 12:29 09/18/16 12:43 220 MLS/HR Diclofenac Sodium 1 appln 1 appln [id number] EXT 09/19/16 12:00 10/19/16 11:59 09/20/16 07:56 1 APPLN Bumetanide/Syringe (Bumex IV/ Syringe) 4 ml @ 4 mls/min DAILY@ IV 09/20/16 17:00 10/20/16 16:59 UNV Objective Vital Signs Date Time Temp Pulse Resp B/P Pulse Ox O2 Delivery O2 Flow Rate FiO2 09/20/16 07:30 36.8 71 20 105/61 89 Nasal Cannula 3.0 09/20/16 04:25 36.8 68 21 93/57 93 Nasal Cannula 3.0 09/20/16 04:00 Nasal Cannula 2.0 09/20/16 00:00 37.0 85 20 95/55 95 Nasal Cannula 3.0 09/20/16 00:00 Nasal Cannula 2.0 09/19/16 20:00 Nasal Cannula 2.0 09/19/16 19:26 36.5 70 20 109/71 96 Nasal Cannula 3.0 Humidified Oxygen 09/19/16 16:05 Nasal Cannula 2.0 09/19/16 15:52 36.6 70 18 114/73 93 Nasal Cannula 3.0 09/19/16 12:03 Nasal Cannula 2.0 09/19/16 11:57 36.5 72 18 100/58 96 Nasal Cannula 3.0 Physical Exam General Appearance: no apparent distress Respiratory/Chest: normal breath sounds, no respiratory distress Cardiovascular: regular rate, rhythm Abdomen: non tender, soft Extremities: + pedal edema Neurologic/Psychiatric: alert, oriented x 3 Skin: warm/dry Laboratory Results Last 24 Hours Test 09/20/16 07:10 Prothrombin Time 26.8 SECONDS Prothromb Time International Ratio 2.4 Sodium Level 136 mmol/L Potassium Level 3.8 mmol/L Chloride Level 96 mmol/L Carbon Dioxide Level 31 mmol/L Anion Gap 9.0 mmol/L Blood Urea Nitrogen 33 mg/dl Creatinine 0.96 mg/dl Est Creatinine Clear Calc Drug Dose 36.5 ml/min Estimated GFR () 60.8 Estimated GFR (Non- 52.4 BUN/Creatinine Ratio 34.2 Random Glucose 92 mg/dl Calcium Level 8.6 mg/dl Phosphorus Level 3.1 mg/dl Magnesium Level 1.8 mg/dl Assessment and Plan (1) Acute on chronic diastolic CHF (congestive heart failure) Assessment & Plan: Cr and volume status continue to improve. Will defer to Nephro when to switch back to PO Bumex. Continue 1200cc fluid restrict, strict I&Os, and Arte[place]. (2) Acute kidney injury superimposed on CKD Assessment & Plan: Cr continues to improve. Continue to monitor closely while aggressively diuresing. Will continue to hold her IVIS-I as her BP has been soft. (3) Acute on chronic respiratory failure with hypoxemia Assessment & Plan: Improved. She's back down to her baseline 2lpm oxygen (4) Hyponatremia Assessment & Plan: Resolved. Will monitor. (5) Atrial fibrillation Assessment & Plan: Currently in v-paced rhythm. Warfarin 2mg daily. Check INR daily. (6) Osteoarthritis Assessment & Plan: Pain controlled with prn [place], which she also takes at home. (7) Benign hypertension Assessment & Plan: Holding home amlodipine and benazepril given hypotension and AUSTYN (8) DVT prophylaxis Assessment & Plan: on warfarin for afib CODE STATUS: DNR/DNI per discussion with patient. Continued [facility] stay due to: ambulation difficulties, multiple IV medications needed Discharge planning: half-way facility
--- NOTE | 2016-09-20 11:57 | Nephrology Progress Note ---
Nephrology Progress Note Date of Service Sep 20, 2016. Chief Complaint F/U for hyponatremia, acute kidney injury and diuretic resistant volume overload. Juan Guillen was seen and examined her room this morning. She is overall feeling a lot better although lower extremity swelling continues to be significant. Denies any shortness of breath. Renal function continues to improve and creatinine currently normalized to 1.0. Hyponatremia resolved. Continues to respond to diuretics net negative more than 2 liters overnight, blood pressure stable. Review of Systems A complete review of systems was performed. Pertinent positives are noted above. All other systems are negative. Vital Signs Last 8 Hrs Date Time Temp Pulse Resp B/P Pulse Ox O2 Delivery O2 Flow Rate FiO2 09/20/16 07:30 36.8 71 20 105/61 89 Nasal Cannula 3.0 09/20/16 04:25 36.8 68 21 93/57 93 Nasal Cannula 3.0 09/20/16 04:00 Nasal Cannula 2.0 I & O 24-Hour Column 09/20/16 08:00 Intake Total 550 ml Output Total 2450 ml Balance -1900 ml Last Recorded Weight Weight (Kilograms): 84.200 Physical Exam GENERAL: Elderly female, AAA x 3, pleasant, ill-appearing, not in any distress. NECK: Supple, no JVD. RESPIRATORY: Normal breathing efforts, no accessory muscle use, bibasilar rales. CARDIOVASCULAR: S1, S2 normal, rhythm irregular. EXTREMITY: bilateral 2 to 3+ lower extremity edema with mild erythema and tenderness. NEURO: speech fluent. PSYCHIATRY: Normal mood and judgment Family History Cancer Diabetes mellitus Heart disease Hypertension Lung disease Social History Smoking Status: Never smoker Drug Use: none Marital Status: Occupation: retired Laboratory Results Past 24 Hours 09/20/16 07:10 Test 09/20/16 07:10 Prothrombin Time 26.8 SECONDS (9.0-12.0) Prothromb Time International Ratio 2.4 (0.9-1.1) Anion Gap 9.0 mmol/L (3-11) Est Creatinine Clear Calc Drug Dose 36.5 ml/min Estimated GFR () 60.8 Estimated GFR (Non- 52.4 BUN/Creatinine Ratio 34.2 (10-20) Calcium Level 8.6 mg/dl (8.5-10.1) Phosphorus Level 3.1 mg/dl (2.5-4.9) Magnesium Level 1.8 mg/dl (1.8-2.4) Allergies Coded Allergies: Phenobarbital (Verified Allergy, Intermediate, ITCHINESS, 09/19/16) Morphine (Verified Allergy, Unknown, swelling, 09/17/16) Medications Current Inpatient Medications Medications (Trade) Dose Ordered Sig/Naren Route Start Time Stop Time Status Last Admin Dose Admin Acetaminophen (Tylenol Tab) 650 mg Q4H PRN PO 09/17/16 18:45 10/17/16 18:44 Ondansetron HCl (Zofran Inj) 4 mg Q6H PRN IV 09/17/16 18:45 10/17/16 18:44 Polyethylene (Miralax Powder Packet) 17 gm DAILY PRN PO 09/17/16 18:45 10/17/16 18:44 09/19/16 08:30 17 GM Calcium/Vitamin D (Caltrate Plus Tab) 1 tab DAILY PO 09/18/16 09:00 10/18/16 08:59 09/20/16 07:56 1 TAB Gabapentin (Neurontin Cap) 300 mg BID PO 09/17/16 21:00 10/17/16 20:59 09/20/16 07:56 300 MG Acetaminophen/ Hydrocodone Bitart ([place] 5/325 Tab) 1 tab Q6H PRN PO 09/17/16 18:45 10/01/16 18:44 09/20/16 08:35 1 TAB Lorazepam (Ativan Tab) 0.5 mg HS PRN PO 09/17/16 18:45 10/17/16 18:44 09/20/16 01:00 0.5 MG Multivitamins/ Minerals (Multivitamin W/ Minerals Tab) 1 tab DAILY PO 09/18/16 09:00 10/18/16 08:59 09/20/16 07:55 1 TAB Senna/Docusate Sodium (Senokot S Tab) 1 tab DAILY PRN PO 09/17/16 18:45 10/17/16 18:44 09/20/16 07:55 1 TAB Simvastatin (Zocor Tab) 5 mg QPM PO 09/17/16 21:00 10/17/16 20:59 09/19/16 22:16 5 MG Pantoprazole Sodium (Protonix Tab) 40 mg BID PO 09/17/16 21:00 10/17/16 20:59 09/20/16 08:02 40 MG Miscellaneous Information (Order Awaiting Action) 1 ea QS N/A 09/18/16 00:00 10/18/16 00:00 09/18/16 21:23 1 EA Lactobacillus Acidophilus 4 tab 4 tab DAILY PO 09/18/16 09:00 10/18/16 08:59 09/20/16 08:02 4 TAB Bumetanide/Syringe (Bumex IV/ Syringe) 8 ml @ 4 mls/min DAILY@ IV 09/18/16 11:00 10/18/16 10:59 09/20/16 08:34 4 MLS/MIN Warfarin Sodium 2 mg 2 mg DAILY@16 PO 09/18/16 16:00 10/18/16 15:59 09/19/16 16:19 2 MG Iron Sucrose/ Sodium Chloride (Venofer Inj/Nss 100ml) 110 ml @ 220 mls/hr Q2D@1200 IV 09/18/16 12:00 09/26/16 12:29 09/18/16 12:43 220 MLS/HR Diclofenac Sodium (Voltaren 1% Top Gel) 1 appln [id number] EXT 09/19/16 12:00 10/19/16 11:59 09/20/16 07:56 1 APPLN Impression Mindy is a 89-year-old female with hypertension, CHF with chronic diastolic dysfunction and diuretic resistant volume overload admitted with progressive worsening of lower extremity edema and shortness of breath. She has been on Bumex 2 milligram twice a day at home. she denied any acute illness, change in her diet or medication and she reports taking Bumex regularly. On admission she was found to have hyponatremia serum sodium 127 which improved to 130 this morning. Also found to have acute kidney injury creatinine 1.4 with her baseline creatinine at 0.9. Over last few months she had recurrent hospital admission for CHF exacerbation. In July she was started on Bumex 1 milligram twice a day and metolazone however she developed hyponatremia and significant volume depletion with metolazone. during her hospital admission in August for hyponatremia metolazone was discontinued and Bumex was increased to 2 milligram twice a day however she reports poor response to Bumex and progressive worsening of her volume status. Echo in June 2016 showed moderate LVH, elevated right ventricular pressure and normal EF 50-55 percent. She also has chronic anemia, during last admission iron study showed significant iron deficiency but stool occult blood test was negative. Has history of AFib, on Coumadin on admission her INR was supra therapeutic which improved to 3.2 from 6. Recommendations -- continue Bumex to 2 milligram IV twice a day possibly for another day , aim for at least 1 liter net negative per 24 hours -- continue free water intake to less than 1200 mL per day --continue on Venofer IV as patient has iron deficiency -- renal panel daily , magnesium and phosphate Q 48 hours while patient is on high dose of diuretics Will follow
[2016-09-20] MEDS: IRON SUCROSE INJ 200 MG in SODIUM CHLORIDE 0.9% 100ML 100 ML IV SCH (12:00)
[2016-09-20] MEDS: WARFARIN SOD 2 MG TAB PO SCH (16:23)
[2016-09-20] MEDS ORDERED: BUMETANIDE IV 1 MG in SYRINGE 0 ML IV SCH (17:00)
[2016-09-20] MEDS: SIMVASTATIN 5 MG TAB PO SCH (22:05)
[2016-09-21 04:05] VITALS: BP 118/64; PULSE 72; TEMP 36.6; O2SAT 94
[2016-09-21 07:28] LABS: BASO % 0.5 %; BASO ABS # 0.02 K/uL (0-0.2); COMPLETE YES; HEMATOCRIT 27.9 % (37-47); IG% 0.2 %; LYMPH % 29.4 %; LYMPH ABS # 1.27 K/uL (1.2-3.4); MEAN CELL VOLUME 96.2 fL (80-100); MEAN CORPUSCULAR HEMOGLOBIN 31.7 pg (25-34); MEAN PLATELET VOLUME 9.3 fL (7.4-10.4); MONO % 12.5 %; NEUT % 51.4 %; PLATELET COUNT 252 K/uL (130-400); WHITE BLOOD COUNT 4.32 K/uL (4.8-10.8)
[2016-09-21 07:40] LABS: INR 2.8 (0.9-1.1); PROTHROMBIN TIME (PATIENT) 31.1 SECONDS (9.0-12.0)
[2016-09-21 08:00] VITALS: BP 121/68; PULSE 82; TEMP 36.7; O2SAT 95
[2016-09-21] MEDS: DICLOFENAC SOD 1% GEL 100 GM TUBE EXT SCH ×3 (08:00→16:16)
[2016-09-21 08:01] LABS: BUN/CREATININE RATIO 29.5 (10-20); CALCIUM 8.4 mg/dl (8.5-10.1); CREATININE 0.98 mg/dl (0.60-1.20); POTASSIUM 3.8 mmol/L (3.5-5.1)
[2016-09-21] MEDS: DOCUSATE SODIUM/SENNA 50/8.6MG TAB PO PRN (08:37)
[2016-09-21] MEDS: CALCIUM 600MG + VIT D 400 IU TAB PO SCH (08:37)
[2016-09-21] MEDS: POLYETHYLENE (MIRALAX) 17 GM PACK PO PRN (08:37)
[2016-09-21] MEDS: LACTOBACILLUS ACIDOPHILUS (FLORANEX) TAB PO SCH (08:37)
[2016-09-21] MEDS: CEROVITE ADV FORMULA TAB PO SCH (08:37)
[2016-09-21] MEDS: GABAPENTIN 300 MG CAP PO SCH ×2 (08:38→20:59)
[2016-09-21] MEDS: PANTOprazole SOD 40 MG TAB PO SCH ×2 (08:38→20:58)
[2016-09-21] MEDS: BUMETANIDE IV 2 MG in SYRINGE 0 ML IV SCH ×2 (08:40→16:17)
[2016-09-21] MEDS: HYDROCODONE/ACETAMOPHEN 5/325MG TAB PO PRN ×3 (08:43→23:28)
--- NOTE | 2016-09-21 10:06 | Hospitalist Progress Note ---
Hospitalist Progress Note Date of Service Sep 21, 2016. Subjective Pt evaluation today including: conversation w/ patient, physical exam, lab review, review of inpatient medication list Patient denies any new complaints. Says pain in legs is improving. No new issues reported by RN. Medications Current Inpatient Medications Medications (Trade) Dose Ordered Sig/Naren Route Start Time Stop Time Status Last Admin Dose Admin Acetaminophen (Tylenol Tab) 650 mg Q4H PRN PO 09/17/16 18:45 10/17/16 18:44 Ondansetron HCl (Zofran Inj) 4 mg Q6H PRN IV 09/17/16 18:45 10/17/16 18:44 Polyethylene (Miralax Powder Packet) 17 gm DAILY PRN PO 09/17/16 18:45 10/17/16 18:44 09/21/16 08:37 17 GM Calcium/Vitamin D (Caltrate Plus Tab) 1 tab DAILY PO 09/18/16 09:00 10/18/16 08:59 09/21/16 08:37 1 TAB Gabapentin (Neurontin Cap) 300 mg BID PO 09/17/16 21:00 10/17/16 20:59 09/21/16 08:38 300 MG Acetaminophen/ Hydrocodone Bitart ([place] 5/325 Tab) 1 tab Q6H PRN PO 09/17/16 18:45 10/01/16 18:44 09/21/16 08:43 1 TAB Lorazepam (Ativan Tab) 0.5 mg HS PRN PO 09/17/16 18:45 10/17/16 18:44 09/21/16 00:00 0.5 MG Multivitamins/ Minerals (Multivitamin W/ Minerals Tab) 1 tab DAILY PO 09/18/16 09:00 10/18/16 08:59 09/21/16 08:37 1 TAB Senna/Docusate Sodium (Senokot S Tab) 1 tab DAILY PRN PO 09/17/16 18:45 10/17/16 18:44 09/21/16 08:37 1 TAB Simvastatin (Zocor Tab) 5 mg QPM PO 09/17/16 21:00 10/17/16 20:59 09/20/16 22:05 5 MG Pantoprazole Sodium (Protonix Tab) 40 mg BID PO 09/17/16 21:00 10/17/16 20:59 09/21/16 08:38 40 MG Miscellaneous Information (Order Awaiting Action) 1 ea QS N/A 09/18/16 00:00 10/18/16 00:00 09/18/16 21:23 1 EA Lactobacillus Acidophilus (Floranex Tab) 4 tab DAILY PO 09/18/16 09:00 10/18/16 08:59 09/21/16 08:37 4 TAB Warfarin Sodium 2 mg 2 mg DAILY@16 PO 09/18/16 16:00 10/18/16 15:59 09/20/16 16:23 2 MG Iron Sucrose/ Sodium Chloride (Venofer Inj/Nss 100ml) 110 ml @ 220 mls/hr Q2D@1200 IV 09/18/16 12:00 09/26/16 12:29 09/18/16 12:43 220 MLS/HR Diclofenac Sodium 1 appln 1 appln [id number] EXT 09/19/16 12:00 10/19/16 11:59 09/21/16 08:00 1 APPLN Bumetanide/Syringe (Bumex IV/ Syringe) 8 ml @ 4 mls/min DAILY@ IV 09/20/16 17:00 10/20/16 16:59 09/21/16 08:40 4 MLS/MIN Objective Vital Signs Date Time Temp Pulse Resp B/P Pulse Ox O2 Delivery O2 Flow Rate FiO2 09/21/16 08:05 Nasal Cannula 2.0 09/21/16 08:00 36.7 82 16 121/68 95 Nasal Cannula 2.0 09/21/16 04:05 36.6 72 18 118/64 94 Nasal Cannula 3.0 09/21/16 04:00 Nasal Cannula 2.0 09/21/16 00:00 Nasal Cannula 2.0 09/20/16 23:06 36.7 70 18 122/72 97 Nasal Cannula 3.0 09/20/16 20:00 Nasal Cannula 2.0 09/20/16 19:28 36.4 70 22 123/73 95 Nasal Cannula 3.0 09/20/16 16:20 36.9 72 20 107/65 92 Nasal Cannula 3.0 Humidified Oxygen 09/20/16 16:06 Nasal Cannula 2.0 09/20/16 12:12 36.5 70 18 109/67 98 Nasal Cannula 3.0 09/20/16 12:02 Nasal Cannula 2.0 Physical Exam General Appearance: no apparent distress Eyes: sclerae normal Neck: no JVD Respiratory/Chest: no respiratory distress, + pertinent finding (breath sounds diminished with a few crackles in bilateral bases) Cardiovascular: regular rate, rhythm Abdomen: normal bowel sounds, non tender, soft Extremities: + pedal edema (less tense and less erythematous compared to admission) Neurologic/Psychiatric: alert, oriented x 3 Skin: warm/dry Laboratory Results Last 24 Hours Test 09/21/16 06:30 White Blood Count 4.32 K/uL Red Blood Count 2.90 M/uL Hemoglobin 9.2 g/dL Hematocrit 27.9 % Mean Corpuscular Volume 96.2 fL Mean Corpuscular Hemoglobin 31.7 pg Mean Corpuscular Hemoglobin Concent 33.0 g/dl Platelet Count 252 K/uL Mean Platelet Volume 9.3 fL Neutrophils (%) (Auto) 51.4 % Lymphocytes (%) (Auto) 29.4 % Monocytes (%) (Auto) 12.5 % Eosinophils (%) (Auto) 6.0 % Basophils (%) (Auto) 0.5 % Neutrophils # (Auto) 2.22 K/uL Lymphocytes # (Auto) 1.27 K/uL Monocytes # (Auto) 0.54 K/uL Eosinophils # (Auto) 0.26 K/uL Basophils # (Auto) 0.02 K/uL RDW Standard Deviation 49.7 fL RDW Coefficient of Variation 14.1 % Immature Granulocyte % (Auto) 0.2 % Immature Granulocyte # (Auto) 0.01 K/uL Prothrombin Time 31.1 SECONDS Prothromb Time International Ratio 2.8 Sodium Level 136 mmol/L Potassium Level 3.8 mmol/L Chloride Level 95 mmol/L Carbon Dioxide Level 31 mmol/L Anion Gap 10.0 mmol/L Blood Urea Nitrogen 29 mg/dl Creatinine 0.98 mg/dl Est Creatinine Clear Calc Drug Dose 35.5 ml/min Estimated GFR () 59.3 Estimated GFR (Non- 51.1 BUN/Creatinine Ratio 29.5 Random Glucose 81 mg/dl Calcium Level 8.4 mg/dl Assessment and Plan (1) Acute on chronic diastolic CHF (congestive heart failure) Assessment & Plan: Continues to diurese well with a stable Cr and BP. She's still hypervolemic. Will defer to Nephro when to switch back to PO Bumex. Continue 1200cc fluid restrict, strict I&Os, and Alonso. (2) Acute kidney injury superimposed on CKD Assessment & Plan: Cr improved with diuresis and remains stable. Continue to monitor closely while aggressively diuresing. Will continue to hold her IVIS-I as her BP has been soft. (3) Acute on chronic respiratory failure with hypoxemia Assessment & Plan: Improved. She's back down to her baseline 2lpm oxygen (4) Hyponatremia Assessment & Plan: Resolved. Will monitor. (5) Atrial fibrillation Assessment & Plan: Rate is controlled. Warfarin 2mg daily. Check INR daily. (6) Osteoarthritis Assessment & Plan: Pain controlled with prn [place], which she also takes at home. (7) Benign hypertension Assessment & Plan: Holding home amlodipine and benazepril given hypotension and AUSTYN. These could likely be restarted soon. (8) DVT prophylaxis Assessment & Plan: on warfarin for afib CODE STATUS: DNR/DNI per discussion with patient. Continued [facility] stay due to: multiple IV medications needed Discharge planning: [facility]pc facility
--- NOTE | 2016-09-21 11:24 | Nephrology Progress Note ---
Nephrology Progress Note Date of Service Sep 21, 2016. Chief Complaint F/U for hyponatremia, acute kidney injury and diuretic resistant volume overload. Juan Guillen was seen and examined her room this morning with family at bedside. She is overall feeling a lot better although lower extremity swelling did not improve. Denies any shortness of breath. Renal function continues to improve and creatinine currently normalized to 1.0. Hyponatremia resolved. Continues to respond to diuretics net negative more than 1.5 liters overnight, blood pressure stable Review of Systems A complete review of systems was performed. Pertinent positives are noted above. All other systems are negative. Vital Signs Last 8 Hrs Date Time Temp Pulse Resp B/P Pulse Ox O2 Delivery O2 Flow Rate FiO2 09/21/16 08:05 Nasal Cannula 2.0 09/21/16 08:00 36.7 82 16 121/68 95 Nasal Cannula 2.0 09/21/16 04:05 36.6 72 18 118/64 94 Nasal Cannula 3.0 09/21/16 04:00 Nasal Cannula 2.0 I & O 24-Hour Column 09/21/16 08:00 Intake Total 975 ml Output Total 1800 ml Balance -825 ml Last Recorded Weight Weight (Kilograms): 83.000 Physical Exam GENERAL: Elderly female, AAA x 3, pleasant, not in any distress. NECK: Supple, no JVD. RESPIRATORY: Normal breathing efforts, no accessory muscle use, bibasilar rales. CARDIOVASCULAR: S1, S2 normal, rhythm irregular. EXTREMITY: bilateral 2 to 3+ lower extremity edema with mild erythema and tenderness. small area with bruise in rt le. NEURO: speech fluent. PSYCHIATRY: Normal mood and judgment Family History Cancer Diabetes mellitus Heart disease Hypertension Lung disease Social History Smoking Status: Never smoker Drug Use: none Marital Status: Occupation: retired Laboratory Results Past 24 Hours 09/21/16 06:30 Red Blood Count 2.90, Mean Corpuscular Volume 96.2, Mean Corpuscular Hemoglobin 31.7, Mean Corpuscular Hemoglobin Concent 33.0, Mean Platelet Volume 9.3, Neutrophils (%) (Auto) 51.4, Lymphocytes (%) (Auto) 29.4, Monocytes (%) (Auto) 12.5, Eosinophils (%) (Auto) 6.0, Basophils (%) (Auto) 0.5, Neutrophils # (Auto ) 2.22, Lymphocytes # (Auto) 1.27, Monocytes # (Auto) 0.54, Eosinophils # (Auto ) 0.26, Basophils # (Auto) 0.02 09/21/16 06:30 Test 09/21/16 06:30 White Blood Count 4.32 K/uL (4.8-10.8) Red Blood Count 2.90 M/uL (4.2-5.4) Hemoglobin 9.2 g/dL (12.0-16.0) Hematocrit 27.9 % (37-47) Mean Corpuscular Volume 96.2 fL (80-100) Mean Corpuscular Hemoglobin 31.7 pg (25-34) Mean Corpuscular Hemoglobin Concent 33.0 g/dl (32-36) Platelet Count 252 K/uL (130-400) Mean Platelet Volume 9.3 fL (7.4-10.4) Neutrophils (%) (Auto) 51.4 % Lymphocytes (%) (Auto) 29.4 % Monocytes (%) (Auto) 12.5 % Eosinophils (%) (Auto) 6.0 % Basophils (%) (Auto) 0.5 % Neutrophils # (Auto) 2.22 K/uL (1.4-6.5) Lymphocytes # (Auto) 1.27 K/uL (1.2-3.4) Monocytes # (Auto) 0.54 K/uL (0.11-0.59) Eosinophils # (Auto) 0.26 K/uL (0-0.5) Basophils # (Auto) 0.02 K/uL (0-0.2) RDW Standard Deviation 49.7 fL (36.4-46.3) RDW Coefficient of Variation 14.1 % (11.5-14.5) Immature Granulocyte % (Auto) 0.2 % Immature Granulocyte # (Auto) 0.01 K/uL (0.00-0.02) Prothrombin Time 31.1 SECONDS (9.0-12.0) Prothromb Time International Ratio 2.8 (0.9-1.1) Anion Gap 10.0 mmol/L (3-11) Est Creatinine Clear Calc Drug Dose 35.5 ml/min Estimated GFR () 59.3 Estimated GFR (Non- 51.1 BUN/Creatinine Ratio 29.5 (10-20) Calcium Level 8.4 mg/dl (8.5-10.1) Allergies Coded Allergies: Phenobarbital (Verified Allergy, Intermediate, ITCHINESS, 09/19/16) Morphine (Verified Allergy, Unknown, swelling, 09/17/16) Medications Current Inpatient Medications Medications (Trade) Dose Ordered Sig/Naren Route Start Time Stop Time Status Last Admin Dose Admin Acetaminophen (Tylenol Tab) 650 mg Q4H PRN PO 09/17/16 18:45 10/17/16 18:44 Ondansetron HCl (Zofran Inj) 4 mg Q6H PRN IV 09/17/16 18:45 10/17/16 18:44 Polyethylene (Miralax Powder Packet) 17 gm DAILY PRN PO 09/17/16 18:45 10/17/16 18:44 09/21/16 08:37 17 GM Calcium/Vitamin D (Caltrate Plus Tab) 1 tab DAILY PO 09/18/16 09:00 10/18/16 08:59 09/21/16 08:37 1 TAB Gabapentin (Neurontin Cap) 300 mg BID PO 09/17/16 21:00 10/17/16 20:59 09/21/16 08:38 300 MG Acetaminophen/ Hydrocodone Bitart ([place] 5/325 Tab) 1 tab Q6H PRN PO 09/17/16 18:45 10/01/16 18:44 09/21/16 08:43 1 TAB Lorazepam (Ativan Tab) 0.5 mg HS PRN PO 09/17/16 18:45 10/17/16 18:44 09/21/16 00:00 0.5 MG Multivitamins/ Minerals (Multivitamin W/ Minerals Tab) 1 tab DAILY PO 09/18/16 09:00 10/18/16 08:59 09/21/16 08:37 1 TAB Senna/Docusate Sodium (Senokot S Tab) 1 tab DAILY PRN PO 09/17/16 18:45 10/17/16 18:44 09/21/16 08:37 1 TAB Simvastatin (Zocor Tab) 5 mg QPM PO 09/17/16 21:00 10/17/16 20:59 09/20/16 22:05 5 MG Pantoprazole Sodium (Protonix Tab) 40 mg BID PO 09/17/16 21:00 10/17/16 20:59 09/21/16 08:38 40 MG Miscellaneous Information (Order Awaiting Action) 1 ea QS N/A 09/18/16 00:00 10/18/16 00:00 09/18/16 21:23 1 EA Lactobacillus Acidophilus (Floranex Tab) 4 tab DAILY PO 09/18/16 09:00 10/18/16 08:59 09/21/16 08:37 4 TAB Warfarin Sodium 2 mg 2 mg DAILY@16 PO 09/18/16 16:00 10/18/16 15:59 09/20/16 16:23 2 MG Iron Sucrose/ Sodium Chloride (Venofer Inj/Nss 100ml) 110 ml @ 220 mls/hr Q2D@1200 IV 09/18/16 12:00 09/26/16 12:29 09/18/16 12:43 220 MLS/HR Diclofenac Sodium 1 appln 1 appln [id number] EXT 09/19/16 12:00 10/19/16 11:59 09/21/16 08:00 1 APPLN Bumetanide/Syringe (Bumex IV/ Syringe) 8 ml @ 4 mls/min DAILY@,17 IV 09/20/16 17:00 10/20/16 16:59 09/21/16 08:40 4 MLS/MIN Impression Mindy is a 89-year-old female with hypertension, CHF with chronic diastolic dysfunction and diuretic resistant volume overload admitted with progressive worsening of lower extremity edema and shortness of breath. She has been on Bumex 2 milligram twice a day at home. she denied any acute illness, change in her diet or medication and she reports taking Bumex regularly. On admission she was found to have hyponatremia serum sodium 127 which improved to 130 this morning. Also found to have acute kidney injury creatinine 1.4 with her baseline creatinine at 0.9. Over last few months she had recurrent hospital admission for CHF exacerbation. In July she was started on Bumex 1 milligram twice a day and metolazone however she developed hyponatremia and significant volume depletion with metolazone. during her hospital admission in August for hyponatremia metolazone was discontinued and Bumex was increased to 2 milligram twice a day however she reports poor response to Bumex and progressive worsening of her volume status. Echo in June 2016 showed moderate LVH, elevated right ventricular pressure and normal EF 50-55 percent. She also has chronic anemia, during last admission iron study showed significant iron deficiency but stool occult blood test was negative. Has history of AFib, on Coumadin on admission her INR was supra therapeutic which improved to 3.2 from 6. Recommendations -- continue Bumex to 2 milligram IV twice a day aim for at least 1 liter net negative per 24 hours, possibly switch to po tomorrow. -- continue free water intake to less than 1200 mL per day --continue on Venofer IV as patient has iron deficiency -- renal panel daily , magnesium and phosphate Q 48 hours while patient is on high dose of diuretics Will follow
[2016-09-21 11:57] VITALS: BP 109/69; PULSE 70; TEMP 36.6; O2SAT 97
[2016-09-21 16:02] VITALS: BP 117/71; TEMP 36.3; O2SAT 96
[2016-09-21] MEDS: WARFARIN SOD 2 MG TAB PO SCH (16:17)
[2016-09-21 19:57] VITALS: BP 132/68; PULSE 68; TEMP 36.7; O2SAT 96
[2016-09-21] MEDS: SIMVASTATIN 5 MG TAB PO SCH (20:58)
[2016-09-21] MEDS: LORAZEPAM 0.5 MG TAB PO PRN ×2 (21:02)
[2016-09-21 23:52] VITALS: BP 105/67; PULSE 70; TEMP 36.6; O2SAT 95
[2016-09-22 04:00] VITALS: BP 112/75; PULSE 71; TEMP 36.5; O2SAT 97
[2016-09-22 07:56] VITALS: BP 130/75; PULSE 70; TEMP 36.6; O2SAT 94
[2016-09-22 07:58] LABS: INR 2.9 (0.9-1.1); PROTHROMBIN TIME (PATIENT) 32.6 SECONDS (9.0-12.0)
[2016-09-22 08:24] LABS: BUN/CREATININE RATIO 24.8 (10-20); CALCIUM 8.8 mg/dl (8.5-10.1); CREATININE 1.1 mg/dl (0.60-1.20); MAGNESIUM 1.9 mg/dl (1.8-2.4); PHOSPHORUS 3.2 mg/dl (2.5-4.9); POTASSIUM 3.9 mmol/L (3.5-5.1)
--- NOTE | 2016-09-22 08:26 | DIAGNOSTIC IMAGING REPORT ---
ULTRASOUND BILATERAL LOWER EXTREMITY VENOUS CLINICAL HISTORY: Venous insufficiency. Lymphedema. COMPARISON STUDY: Bilateral lower extremity venous ultrasound dated 01/26/2011. TECHNIQUE: Real-time, grayscale, and color Doppler sonography of the deep veins of the right and left lower extremity was performed from the inguinal crease to the calf. Compression and augmentation were utilized. FINDINGS: There is no sonographic evidence of deep venous thrombosis identified in the right or left lower extremity. The common femoral, superficial femoral, and popliteal veins are patent and normally compressible bilaterally. The greater saphenous vein and the profunda femoris vein at the junction with the common femoral vein are clear in both legs. The visualized calf veins are patent bilaterally. Reflux was identified within the saphenous veins bilaterally. IMPRESSION: There is no sonographic evidence of deep venous thrombosis identified in the right or left lower extremity. Electronically signed by: Joshua Mcduffie M.D. 09/22/2016 8:25 AM Dictated Date/Time: 09/22/2016 8:24 AM
[2016-09-22] MEDS: CALCIUM 600MG + VIT D 400 IU TAB PO SCH (08:58)
[2016-09-22] MEDS: DOCUSATE SODIUM/SENNA 50/8.6MG TAB PO PRN (08:58)
[2016-09-22] MEDS: DICLOFENAC SOD 1% GEL 100 GM TUBE EXT SCH ×3 (08:58→16:02)
[2016-09-22] MEDS: GABAPENTIN 300 MG CAP PO SCH ×2 (08:58→20:27)
[2016-09-22] MEDS: LACTOBACILLUS ACIDOPHILUS (FLORANEX) TAB PO SCH (08:58)
[2016-09-22] MEDS: CEROVITE ADV FORMULA TAB PO SCH (08:58)
[2016-09-22] MEDS: PANTOprazole SOD 40 MG TAB PO SCH ×2 (08:59→20:27)
[2016-09-22] MEDS ORDERED: BUMETANIDE 1 MG TAB PO SCH (09:00)
[2016-09-22] MEDS: HYDROCODONE/ACETAMOPHEN 5/325MG TAB PO PRN ×2 (09:02→16:02)
[2016-09-22] MEDS ORDERED: BUMETANIDE SOLN 1 MG/4 ML VIAL IV ONE (11:15)
[2016-09-22] MEDS ORDERED: BUMETANIDE IV 2 MG in SYRINGE 0 ML IV ONE (11:15)
[2016-09-22] MEDS: IRON SUCROSE INJ 200 MG in SODIUM CHLORIDE 0.9% 100ML 100 ML IV SCH (11:40)
--- NOTE | 2016-09-22 11:58 | Nephrology Progress Note ---
Nephrology Progress Note Date of Service Sep 22, 2016. Chief Complaint F/U for hyponatremia, acute kidney injury and diuretic resistant volume overload. Juan Guillen was seen and examined her room this morning with her Daughter at bedside. She is overall feeling a lot better although lower extremity swelling and pain did not improve much. Denies any shortness of breath. Renal function stable.. Hyponatremia resolved. Continues to respond to diuretics net negative 1-1.5 liters overnight, blood pressure stable. Review of Systems A complete review of systems was performed. Pertinent positives are noted above. All other systems are negative. Vital Signs Last 8 Hrs Date Time Temp Pulse Resp B/P Pulse Ox O2 Delivery O2 Flow Rate FiO2 09/22/16 07:56 36.6 70 18 130/75 94 Nasal Cannula 3.0 09/22/16 04:00 36.5 71 18 112/75 97 Nasal Cannula 3.0 09/22/16 04:00 Nasal Cannula 2.0 09/22/16 00:00 Nasal Cannula 2.0 I & O 24-Hour Column 09/22/16 08:00 Intake Total 480 ml Output Total 2000 ml Balance -1520 ml Last Recorded Weight Weight (Kilograms): 77.000 Physical Exam GENERAL: Elderly female, AAA x 3, pleasant, not in any distress. NECK: Supple, no JVD. RESPIRATORY: Normal breathing efforts, no accessory muscle use, bibasilar rales. CARDIOVASCULAR: S1, S2 normal, rhythm irregular. EXTREMITY: bilateral 2 to 3+ lower extremity edema with mild erythema and tenderness. small area with bruise in rt le. NEURO: speech fluent. PSYCHIATRY: Normal mood and judgment Family History Cancer Diabetes mellitus Heart disease Hypertension Lung disease Social History Smoking Status: Never smoker Drug Use: none Marital Status: Occupation: retired Laboratory Results Past 24 Hours Test 09/22/16 07:25 Prothrombin Time 32.6 SECONDS (9.0-12.0) Prothromb Time International Ratio 2.9 (0.9-1.1) Allergies Coded Allergies: Phenobarbital (Verified Allergy, Intermediate, ITCHINESS, 09/19/16) Morphine (Verified Allergy, Unknown, swelling, 09/17/16) Medications Current Inpatient Medications Medications (Trade) Dose Ordered Sig/Naren Route Start Time Stop Time Status Last Admin Dose Admin Acetaminophen (Tylenol Tab) 650 mg Q4H PRN PO 09/17/16 18:45 10/17/16 18:44 Ondansetron HCl (Zofran Inj) 4 mg Q6H PRN IV 09/17/16 18:45 10/17/16 18:44 Polyethylene (Miralax Powder Packet) 17 gm DAILY PRN PO 09/17/16 18:45 10/17/16 18:44 09/21/16 08:37 17 GM Calcium/Vitamin D (Caltrate Plus Tab) 1 tab DAILY PO 09/18/16 09:00 10/18/16 08:59 09/21/16 08:37 1 TAB Gabapentin (Neurontin Cap) 300 mg BID PO 09/17/16 21:00 10/17/16 20:59 09/21/16 20:59 300 MG Acetaminophen/ Hydrocodone Bitart ([place] 5/325 Tab) 1 tab Q6H PRN PO 09/17/16 18:45 10/01/16 18:44 09/21/16 23:28 1 TAB Lorazepam (Ativan Tab) 0.5 mg HS PRN PO 09/17/16 18:45 10/17/16 18:44 09/21/16 21:02 0.5 MG Multivitamins/ Minerals (Multivitamin W/ Minerals Tab) 1 tab DAILY PO 09/18/16 09:00 10/18/16 08:59 09/21/16 08:37 1 TAB Senna/Docusate Sodium (Senokot S Tab) 1 tab DAILY PRN PO 09/17/16 18:45 10/17/16 18:44 09/21/16 08:37 1 TAB Simvastatin (Zocor Tab) 5 mg QPM PO 09/17/16 21:00 10/17/16 20:59 09/21/16 20:58 5 MG Pantoprazole Sodium (Protonix Tab) 40 mg BID PO 09/17/16 21:00 10/17/16 20:59 09/21/16 20:58 40 MG Miscellaneous Information (Order Awaiting Action) 1 ea QS N/A 09/18/16 00:00 10/18/16 00:00 09/18/16 21:23 1 EA Lactobacillus Acidophilus (Floranex Tab) 4 tab DAILY PO 09/18/16 09:00 10/18/16 08:59 09/21/16 08:37 4 TAB Warfarin Sodium 2 mg 2 mg DAILY@16 PO 09/18/16 16:00 10/18/16 15:59 09/21/16 16:17 2 MG Iron Sucrose/ Sodium Chloride (Venofer Inj/Nss 100ml) 110 ml @ 220 mls/hr Q2D@1200 IV 09/18/16 12:00 09/26/16 12:29 09/18/16 12:43 220 MLS/HR Diclofenac Sodium (Voltaren 1% Top Gel) 1 appln [id number] EXT 09/19/16 12:00 10/19/16 11:59 09/21/16 16:16 1 APPLN Bumetanide (Bumex Tab) 2 mg BID17 PO 09/22/16 09:00 10/22/16 08:59 Impression Mindy is a 89-year-old female with hypertension, CHF with chronic diastolic dysfunction and diuretic resistant volume overload admitted with progressive worsening of lower extremity edema and shortness of breath. She has been on Bumex 2 milligram twice a day at home. she denied any acute illness, change in her diet or medication and she reports taking Bumex regularly. On admission she was found to have hyponatremia serum sodium 127 which improved to 130 this morning. Also found to have acute kidney injury creatinine 1.4 with her baseline creatinine at 0.9. Over last few months she had recurrent hospital admission for CHF exacerbation. In July she was started on Bumex 1 milligram twice a day and metolazone however she developed hyponatremia and significant volume depletion with metolazone. during her hospital admission in August for hyponatremia metolazone was discontinued and Bumex was increased to 2 milligram twice a day however she reports poor response to Bumex and progressive worsening of her volume status. Echo in June 2016 showed moderate LVH, elevated right ventricular pressure and normal EF 50-55 percent. She also has chronic anemia, during last admission iron study showed significant iron deficiency but stool occult blood test was negative. Has history of AFib, on Coumadin on admission her INR was supra therapeutic which improved. Has been responding to diuretics with 1-1.5 liters net negative daily but continues to have significant lower extremity edema. Started on Luc stocking yesterday, venous Doppler lower extremity was negative for DVT or venous insufficiency. Recommendations -- change Bumex to 2 milligram po twice a day aim for at least 1 liter net negative per 24 hours, if not, will increase Bumex to 3 milligram twice a day. Avoid metolazone as patient had recurrent hyponatremia -- continue free water intake to less than 1200 mL per day --completing Venofer -- renal panel daily , magnesium and phosphate Q 48 hours while patient is on high dose of diuretics Will follow
[2016-09-22 12:13] VITALS: BP 132/78; PULSE 76; TEMP 36.7; O2SAT 94
--- NOTE | 2016-09-22 12:29 | Progress Note ---
Subjective Date of Service: Sep 22, 2016. Subjective this pt is feeling fatigued, she feels her legs are heavy and limit her movements, she is in agreement to consider rehab but eventually wants to go home. Daughter is at bedside and is frustrated as pt has had frequent readmission in recent times Problem List Medical Problems: (1) CHF exacerbation Status: Acute (2) Hypoxemia Status: Acute (3) Hypoxia Status: Acute (4) Peripheral edema Status: Acute (5) Peripheral edema Status: Acute (6) Renal insufficiency Status: Acute Review of Systems Constitutional: + fatigue, + weakness, No chills, No fever Respiratory: + dyspnea on exertion, No cough, No shortness of breath Cardiac: + edema, No chest pain Abdomen: No diarrhea, No nausea, No pain, No vomiting Female : No dysuria, No hematuria, No incontinence, No urinary frequency Psychiatric: No anhedonism, No depression symptoms Objective Vital Signs Date Time Temp Pulse Resp B/P Pulse Ox O2 Delivery O2 Flow Rate FiO2 09/22/16 04:00 36.5 71 18 112/75 97 Nasal Cannula 3.0 09/22/16 04:00 Nasal Cannula 2.0 09/22/16 00:00 Nasal Cannula 2.0 09/21/16 23:52 36.6 70 19 105/67 95 Nasal Cannula 3.0 09/21/16 20:00 Nasal Cannula 2.0 09/21/16 19:57 36.7 68 18 132/68 96 09/21/16 16:03 Nasal Cannula 2.0 09/21/16 16:02 36.3 20 117/71 96 Nasal Cannula 2.0 09/21/16 12:03 Nasal Cannula 2.0 09/21/16 11:57 36.6 70 18 109/69 97 Room Air 09/21/16 08:05 Nasal Cannula 2.0 09/21/16 08:00 36.7 82 16 121/68 95 Nasal Cannula 2.0 Physical Exam General Appearance: WD/WN, + moderate distress Neck: supple, no JVD Respiratory/Chest: chest non-tender, lungs clear, normal breath sounds Cardiovascular: regular rate, rhythm, + systolic murmur Abdomen: normal bowel sounds, non tender, soft Extremities: + pedal edema, + swelling Neurologic/Psychiatric: alert, oriented x 3 Laboratory Results Last 24 Hours Test 09/22/16 07:25 Assessment and Plan 89 F presents with shortness of breath and hypoxia Acute on chronic diastolic CHF (congestive heart failure) nephrology helping to manage Bumex.fluid restrict, strict I&Os, and Alonso, still with only 1 kg weight loss and edema to thigh, family is concerned that she is not ready to leave. Acute./ kidney injury superimposed on CKD improved hold her IVIS-I HTN has been reasonable with holding IVIS I Acute on chronic respiratory failure with hypoxemia Improved. baseline oxygen Atrial fibrillation Rate controlled with pacemaker, Warfarin 2mg daily. DVT prophylaxis warfarin for afib Continued [facility] stay due to: multiple IV medications needed Discharge planning: custodial facility
[2016-09-22] MEDS ORDERED: LORAZEPAM 2 MG/ML 1 ML VIAL IV PRN ×2 (12:30)
[2016-09-22] MEDS ORDERED: LORAZEPAM 0.5 MG TAB PO PRN (12:30)
--- NOTE | 2016-09-22 12:41 | Cardiology Follow-Up ---
Subjective Subjective Date of Service: Sep 22, 2016. Pt evaluation today including: conversation w/ patient, conversation w/ family , physical exam, chart review, lab review, review of studies, review of inpatient medication list Additional Details: Patient feeling better. Denies significant shortness of breath. No chest pain or palpitations. Feels that the swelling in her legs continues to improve Problem List Medical Problems: (1) CHF exacerbation Status: Acute (2) Hypoxemia Status: Acute (3) Hypoxia Status: Acute (4) Peripheral edema Status: Acute (5) Peripheral edema Status: Acute (6) Renal insufficiency Status: Acute Review of Systems Constitutional: No fever Respiratory: + dyspnea on exertion Cardiac: + edema, No chest pain Abdomen: No pain Musculoskeletal: + joint pain Endo: + fatigue Objective Vital Signs Last Vital Signs Documentation Date Time Temp Pulse Resp B/P Pulse Ox O2 Delivery O2 Flow Rate FiO2 09/22/16 12:13 36.7 76 20 132/78 94 Nasal Cannula 3.0 Physical Exam: General Appearance: no apparent distress ENT: hearing grossly normal Neck: no JVD Respiratory/Chest: no respiratory distress Cardiovascular: regular rate, rhythm, no JVD, + systolic murmur Abdomen: normal bowel sounds, non tender, soft Extremities: + pedal edema (erythema present but significantly less edematous then at admission) Neurologic/Psychiatric: alert, oriented x 3 Skin: warm/dry Assessment and Plan 1. Acute on chronic diastolic heart failure 2. Chronic renal insufficiency. 3. Persistent atrial fibrillation. 4 Post dual-chamber pacemaker for complete heart block. Significantly improved pulmonary congestion and lower extremity edema from admission Weight still up from -- Agree with continued diuresis and trial of IV to PO diuretics today -- Continue to hold home antihypertensive regimen -- Therapeutic on coumadin Continued [facility] stay due to: multiple IV medications needed Discharge planning: half-way facility Medications: Current Inpatient Medications Medications (Trade) Dose Ordered Sig/Naren Route Start Time Stop Time Status Last Admin Dose Admin Acetaminophen (Tylenol Tab) 650 mg Q4H PRN PO 09/17/16 18:45 10/17/16 18:44 Ondansetron HCl (Zofran Inj) 4 mg Q6H PRN IV 09/17/16 18:45 10/17/16 18:44 Polyethylene (Miralax Powder Packet) 17 gm DAILY PRN PO 09/17/16 18:45 10/17/16 18:44 09/21/16 08:37 17 GM Calcium/Vitamin D (Caltrate Plus Tab) 1 tab DAILY PO 09/18/16 09:00 10/18/16 08:59 09/22/16 08:58 1 TAB Gabapentin (Neurontin Cap) 300 mg BID PO 09/17/16 21:00 10/17/16 20:59 09/22/16 08:58 300 MG Acetaminophen/ Hydrocodone Bitart ([place] 5/325 Tab) 1 tab Q6H PRN PO 09/17/16 18:45 10/01/16 18:44 09/22/16 09:02 1 TAB Lorazepam (Ativan Tab) 0.5 mg HS PRN PO 09/17/16 18:45 10/17/16 18:44 09/21/16 21:02 0.5 MG Multivitamins/ Minerals (Multivitamin W/ Minerals Tab) 1 tab DAILY PO 09/18/16 09:00 10/18/16 08:59 09/22/16 08:58 1 TAB Senna/Docusate Sodium (Senokot S Tab) 1 tab DAILY PRN PO 09/17/16 18:45 10/17/16 18:44 09/22/16 08:58 1 TAB Simvastatin (Zocor Tab) 5 mg QPM PO 09/17/16 21:00 10/17/16 20:59 09/21/16 20:58 5 MG Pantoprazole Sodium (Protonix Tab) 40 mg BID PO 09/17/16 21:00 10/17/16 20:59 09/22/16 08:59 40 MG Miscellaneous Information (Order Awaiting Action) 1 ea QS N/A 09/18/16 00:00 10/18/16 00:00 09/18/16 21:23 1 EA Lactobacillus Acidophilus (Floranex Tab) 4 tab DAILY PO 09/18/16 09:00 10/18/16 08:59 09/22/16 08:58 4 TAB Warfarin Sodium 2 mg 2 mg DAILY@16 PO 09/18/16 16:00 10/18/16 15:59 09/21/16 16:17 2 MG Iron Sucrose/ Sodium Chloride (Venofer Inj/Nss 100ml) 110 ml @ 220 mls/hr Q2D@1200 IV 09/18/16 12:00 09/26/16 12:29 09/18/16 12:43 220 MLS/HR Diclofenac Sodium (Voltaren 1% Top Gel) 1 appln [id number] EXT 09/19/16 12:00 10/19/16 11:59 09/22/16 11:40 1 APPLN Lab Results: 09/22/16 07:25 Test 09/22/16 07:25 Prothrombin Time 32.6 SECONDS (9.0-12.0) Prothromb Time International Ratio 2.9 (0.9-1.1) Anion Gap 11.0 mmol/L (3-11) Est Creatinine Clear Calc Drug Dose 30.3 ml/min Estimated GFR () 51.5 Estimated GFR (Non- 44.5 BUN/Creatinine Ratio 24.8 (10-20) Calcium Level 8.8 mg/dl (8.5-10.1) Phosphorus Level 3.2 mg/dl (2.5-4.9) Magnesium Level 1.9 mg/dl (1.8-2.4) Thyroid Stimulating Hormone (TSH) 2.930 uIu/ml (0.300-4.500)
[2016-09-22 15:23] VITALS: BP 114/59; PULSE 70; TEMP 36.5; O2SAT 98
[2016-09-22] MEDS: WARFARIN SOD 2 MG TAB PO SCH (16:01)
[2016-09-22] MEDS ORDERED: BUMETANIDE IV 2 MG in SYRINGE 0 ML IV SCH (17:00)
[2016-09-22 19:28] VITALS: BP 128/78; PULSE 76; TEMP 36.4; O2SAT 95
[2016-09-22] MEDS: SIMVASTATIN 5 MG TAB PO SCH (20:27)
[2016-09-22 23:04] VITALS: BP 129/82; PULSE 70; TEMP 36.5; O2SAT 96
[2016-09-23 03:35] VITALS: BP 108/76; PULSE 70; TEMP 36.5; O2SAT 95
[2016-09-23] MEDS: HYDROCODONE/ACETAMOPHEN 5/325MG TAB PO PRN ×2 (07:01→13:58)
[2016-09-23 07:41] LABS: INR 3.1 (0.9-1.1); PROTHROMBIN TIME (PATIENT) 34.7 SECONDS (9.0-12.0)
[2016-09-23 07:52] LABS: BUN/CREATININE RATIO 26.3 (10-20); CALCIUM 8.8 mg/dl (8.5-10.1); CREATININE 0.97 mg/dl (0.60-1.20); POTASSIUM 3.8 mmol/L (3.5-5.1)
[2016-09-23 07:59] VITALS: BP 127/70; PULSE 70; TEMP 36.8; O2SAT 98
[2016-09-23] MEDS: DICLOFENAC SOD 1% GEL 100 GM TUBE EXT SCH ×5 (08:00→23:56)
[2016-09-23] MEDS: GABAPENTIN 300 MG CAP PO SCH ×2 (08:02→19:56)
[2016-09-23] MEDS: PANTOprazole SOD 40 MG TAB PO SCH ×2 (08:02→19:57)
[2016-09-23] MEDS: CALCIUM 600MG + VIT D 400 IU TAB PO SCH (08:03)
[2016-09-23] MEDS: LACTOBACILLUS ACIDOPHILUS (FLORANEX) TAB PO SCH (08:03)
[2016-09-23] MEDS: CEROVITE ADV FORMULA TAB PO SCH (08:03)
[2016-09-23] MEDS: POLYETHYLENE (MIRALAX) 17 GM PACK PO PRN (08:04)
--- NOTE | 2016-09-23 09:12 | Nephrology Progress Note ---
Nephrology Progress Note Date of Service Sep 23, 2016. Chief Complaint Cardiorenal syndrome Subjective Rhoda was sitting in a bedside chair this morning. She remains very weak. She was able to transfer to the bathroom with assist. She was not able to have a bowel movement but hopes Miralax will help. Rhoda describes left sided chest pain which started while she was in bed last night. The pain started slowly and has been progressive. She does not remember exactly when it started but did note tenderness on her chest wall earlier in the day. The area remains tender. She has not had shortness of breath. Taking a deep breath is difficult due to the pain. She denies cough. She has not had similar pain in the past. She denies palpitations. Review of Systems A complete review of systems was performed. Pertinent positives are noted above. All other systems are negative. Vital Signs Last 8 Hrs Date Time Temp Pulse Resp B/P Pulse Ox O2 Delivery O2 Flow Rate FiO2 09/23/16 08:00 Nasal Cannula 2.0 09/23/16 07:59 36.8 70 18 127/70 98 09/23/16 04:01 Nasal Cannula 2.0 09/23/16 03:35 36.5 70 18 108/76 95 Nasal Cannula 2.0 I & O 24-Hour Column 09/23/16 08:00 Intake Total 880 ml Output Total 2450 ml Balance -1570 ml Last Recorded Weight Weight (Kilograms): 77.000 Physical Exam General Appearance: WD/WN, no apparent distress Head: normocephalic, atraumatic Eyes: normal inspection, sclerae normal ENT: normal ENT inspection, pharynx normal Neck: supple Respiratory/Chest: lungs clear, no respiratory distress, no accessory muscle use, + pertinent finding (Tenderness on anterior chest wall inferior to pacer and along rib, no rash appreciated) Cardiovascular: regular rate, rhythm, no gallop, no murmur Abdomen/GI: non tender, soft Genitourinary - Female: + pertinent finding (Alonso draining yellow urine) Extremities/Musculoskelatal: normal inspection, + pertinent finding (4+ pitting BL LE edema) Neurologic/Psych: alert, oriented x 3 Family History Cancer Diabetes mellitus Heart disease Hypertension Lung disease Social History Smoking Status: Never smoker Drug Use: none Marital Status: Occupation: retired Laboratory Results Past 24 Hours 09/23/16 07:00 Test 09/23/16 07:00 Prothrombin Time 34.7 SECONDS (9.0-12.0) Prothromb Time International Ratio 3.1 (0.9-1.1) Anion Gap 8.0 mmol/L (3-11) Est Creatinine Clear Calc Drug Dose 34.3 ml/min Estimated GFR () 60.0 Estimated GFR (Non- 51.8 BUN/Creatinine Ratio 26.3 (10-20) Calcium Level 8.8 mg/dl (8.5-10.1) Allergies Coded Allergies: Phenobarbital (Verified Allergy, Intermediate, ITCHINESS, 09/19/16) Morphine (Verified Allergy, Unknown, swelling, 09/17/16) Medications Current Inpatient Medications Medications (Trade) Dose Ordered Sig/Naren Route Start Time Stop Time Status Last Admin Dose Admin Acetaminophen (Tylenol Tab) 650 mg Q4H PRN PO 09/17/16 18:45 10/17/16 18:44 Ondansetron HCl (Zofran Inj) 4 mg Q6H PRN IV 09/17/16 18:45 10/17/16 18:44 Polyethylene (Miralax Powder Packet) 17 gm DAILY PRN PO 09/17/16 18:45 10/17/16 18:44 09/23/16 08:04 17 GM Calcium/Vitamin D (Caltrate Plus Tab) 1 tab DAILY PO 09/18/16 09:00 10/18/16 08:59 09/23/16 08:03 1 TAB Gabapentin (Neurontin Cap) 300 mg BID PO 09/17/16 21:00 10/17/16 20:59 09/23/16 08:02 300 MG Acetaminophen/ Hydrocodone Bitart ([place] 5/325 Tab) 1 tab Q6H PRN PO 09/17/16 18:45 10/01/16 18:44 09/23/16 07:01 1 TAB Lorazepam (Ativan Tab) 0.5 mg HS PRN PO 09/17/16 18:45 10/17/16 18:44 09/21/16 21:02 0.5 MG Multivitamins/ Minerals (Multivitamin W/ Minerals Tab) 1 tab DAILY PO 09/18/16 09:00 10/18/16 08:59 09/23/16 08:03 1 TAB Senna/Docusate Sodium (Senokot S Tab) 1 tab DAILY PRN PO 09/17/16 18:45 10/17/16 18:44 09/22/16 08:58 1 TAB Simvastatin (Zocor Tab) 5 mg QPM PO 09/17/16 21:00 10/17/16 20:59 09/22/16 20:27 5 MG Pantoprazole Sodium (Protonix Tab) 40 mg BID PO 09/17/16 21:00 10/17/16 20:59 09/23/16 08:02 40 MG Miscellaneous Information (Order Awaiting Action) 1 ea QS N/A 09/18/16 00:00 10/18/16 00:00 09/18/16 21:23 1 EA Lactobacillus Acidophilus (Floranex Tab) 4 tab DAILY PO 09/18/16 09:00 10/18/16 08:59 09/23/16 08:03 4 TAB Warfarin Sodium 2 mg 2 mg DAILY@16 PO 09/18/16 16:00 10/18/16 15:59 09/22/16 16:01 2 MG Iron Sucrose/ Sodium Chloride (Venofer Inj/Nss 100ml) 110 ml @ 220 mls/hr Q2D@1200 IV 09/18/16 12:00 09/26/16 12:29 09/18/16 12:43 220 MLS/HR Diclofenac Sodium (Voltaren 1% Top Gel) 1 appln [id number] EXT 09/19/16 12:00 10/19/16 11:59 09/22/16 16:02 1 APPLN Lorazepam (Ativan Inj) 1 mg Q4H PRN IV 09/22/16 12:30 10/22/16 12:29 Lorazepam (Ativan Inj) 0.5 mg Q4H PRN IV 09/22/16 12:30 10/22/16 12:29 Lorazepam (Ativan Tab) 0.5 mg Q6 PRN PO 09/22/16 12:30 10/22/16 12:29 Impression (1) Acute on chronic diastolic CHF (congestive heart failure) (2) Hyponatremia (3) Hypokalemia (4) Acute kidney injury superimposed on CKD (5) Anemia Mindy is a 89-year-old female with hypertension, chronic diastolic CHF and diuretic resistant volume overload admitted with progressive worsening of lower extremity edema and shortness of breath. She has been on Bumex 2 milligram twice a day at home. On admission she was found to have hyponatremia serum sodium 127 which improved with adjustment of diuretics. Also found to have acute kidney injury creatinine 1.4 with her baseline creatinine at 0.9. Over last few months she had recurrent hospital admission for CHF exacerbation. In July she was started on Bumex 1 milligram twice a day and metolazone however she developed hyponatremia and significant volume depletion with metolazone. during her hospital admission in August for hyponatremia metolazone was discontinued and Bumex was increased to 2 milligram twice a day however she reports poor response to Bumex and progressive worsening of her volume status. Echo in June 2016 showed moderate LVH, elevated right ventricular pressure and normal EF 50-55 percent. She also has chronic anemia, during last admission iron study showed significant iron deficiency but stool occult blood test was negative. Has history of AFib, on Coumadin on admission her INR was supra therapeutic which improved. Has been responding to diuretics with 1-1.5 liters net negative daily but continues to have significant lower extremity edema. Venous Doppler lower extremity was negative for DVT or venous insufficiency. Recommendations -- Bumex 2 mg PO BID; goal negative fluid balance ~1.5 L daily -- Restrict free water intake to < 1200 mL per day -- Venofer 200 mg daily x 5 -- Renal panel daily, magnesium and phosphate Q 48 hours while patient is on high dose of diuretics -- Alonso management per protocol -- Document I/O -- Continue to hold IVIS/ARB at this time -- Chest pain appears MSK, will monitor
[2016-09-23] MEDS ORDERED: BUMETANIDE 1 MG TAB PO SCH (10:00)
[2016-09-23 10:45] VITALS: O2SAT 96
[2016-09-23 12:02] VITALS: BP 116/73; PULSE 70; TEMP 36.8; O2SAT 99
[2016-09-23] MEDS ORDERED: SPIRONOLACTONE 25 MG TAB PO ONE (12:08)
[2016-09-23 12:30] VITALS: BP 126/66; PULSE 78; TEMP 36.4; O2SAT 96
--- NOTE | 2016-09-23 13:20 | Cardiology Follow-Up ---
Subjective Subjective Date of Service: Sep 23, 2016. Pt evaluation today including: conversation w/ patient, physical exam, chart review, lab review, review of studies, review of inpatient medication list Additional Details: Up with physical therapy yesterday. Breathing stable. Mild left sided chest pain today, worse with inspiration, palpation. No events on telemetry Problem List Medical Problems: (1) CHF exacerbation Status: Acute (2) Hypoxemia Status: Acute (3) Hypoxia Status: Acute (4) Peripheral edema Status: Acute (5) Peripheral edema Status: Acute (6) Renal insufficiency Status: Acute Review of Systems Constitutional: No fever Respiratory: + dyspnea on exertion Cardiac: + chest pain, + edema Abdomen: No pain Musculoskeletal: + joint pain Female : No dysuria, No hematuria, No incontinence, No urinary frequency Psychiatric: No anhedonism, No depression symptoms Endo: + fatigue Objective Vital Signs Last Vital Signs Documentation Date Time Temp Pulse Resp B/P Pulse Ox O2 Delivery O2 Flow Rate FiO2 09/23/16 12:30 36.4 78 18 126/66 96 Nasal Cannula 2.0 Physical Exam: General Appearance: WD/WN, + moderate distress ENT: hearing grossly normal Neck: supple, no JVD Respiratory/Chest: no respiratory distress Cardiovascular: regular rate, rhythm, no JVD, + systolic murmur Abdomen: normal bowel sounds, non tender, soft Extremities: + pedal edema (erythema present but significantly less edematous then at admission) Neurologic/Psychiatric: alert, oriented x 3 Skin: warm/dry Assessment and Plan 1. Acute on chronic diastolic heart failure 2. Chronic renal insufficiency. 3. Persistent atrial fibrillation. 4 Post dual-chamber pacemaker for complete heart block. 5. Atypical chest pain Residual lower extremity edema continues to improve slowly, net negative again yesterday Weight still up from -- No change to current diuretics today -- Continue to hold home antihypertensive regimen -- Therapeutic on coumadin -- Agree chest pain seems musculoskeletal Continued [facility] stay due to: multiple IV medications needed Discharge planning: nursing home facility Medications: Current Inpatient Medications Medications (Trade) Dose Ordered Sig/Naren Route Start Time Stop Time Status Last Admin Dose Admin Acetaminophen (Tylenol Tab) 650 mg Q4H PRN PO 09/17/16 18:45 10/17/16 18:44 Ondansetron HCl (Zofran Inj) 4 mg Q6H PRN IV 09/17/16 18:45 3/3/17 18:44 Polyethylene (Miralax Powder Packet) 17 gm DAILY PRN PO 09/17/16 18:45 10/17/16 18:44 09/23/16 08:04 17 GM Calcium/Vitamin D (Caltrate Plus Tab) 1 tab DAILY PO 09/18/16 09:00 10/18/16 08:59 09/23/16 08:03 1 TAB Gabapentin (Neurontin Cap) 300 mg BID PO 09/17/16 21:00 10/17/16 20:59 09/23/16 08:02 300 MG Acetaminophen/ Hydrocodone Bitart ([place] 5/325 Tab) 1 tab Q6H PRN PO 09/17/16 18:45 10/01/16 18:44 09/23/16 07:01 1 TAB Lorazepam (Ativan Tab) 0.5 mg HS PRN PO 09/17/16 18:45 10/17/16 18:44 09/21/16 21:02 0.5 MG Multivitamins/ Minerals (Multivitamin W/ Minerals Tab) 1 tab DAILY PO 09/18/16 09:00 10/18/16 08:59 09/23/16 08:03 1 TAB Senna/Docusate Sodium (Senokot S Tab) 1 tab DAILY PRN PO 09/17/16 18:45 10/17/16 18:44 09/22/16 08:58 1 TAB Simvastatin (Zocor Tab) 5 mg QPM PO 09/17/16 21:00 10/17/16 20:59 09/22/16 20:27 5 MG Pantoprazole Sodium (Protonix Tab) 40 mg BID PO 09/17/16 21:00 10/17/16 20:59 09/23/16 08:02 40 MG Miscellaneous Information (Order Awaiting Action) 1 ea QS N/A 09/18/16 00:00 10/18/16 00:00 09/18/16 21:23 1 EA Lactobacillus Acidophilus (Floranex Tab) 4 tab DAILY PO 09/18/16 09:00 10/18/16 08:59 09/23/16 08:03 4 TAB Warfarin Sodium 2 mg 2 mg DAILY@16 PO 09/18/16 16:00 10/18/16 15:59 09/22/16 16:01 2 MG Iron Sucrose/ Sodium Chloride (Venofer Inj/Nss 100ml) 110 ml @ 220 mls/hr Q2D@1200 IV 09/18/16 12:00 09/26/16 12:29 09/18/16 12:43 220 MLS/HR Diclofenac Sodium (Voltaren 1% Top Gel) 1 appln [id number] EXT 09/19/16 12:00 10/19/16 11:59 09/23/16 08:00 1 APPLN Lorazepam (Ativan Inj) 1 mg Q4H PRN IV 09/22/16 12:30 10/22/16 12:29 Lorazepam (Ativan Inj) 0.5 mg Q4H PRN IV 09/22/16 12:30 10/22/16 12:29 Lorazepam (Ativan Tab) 0.5 mg Q6 PRN PO 09/22/16 12:30 10/22/16 12:29 Bumetanide (Bumex Tab) 2 mg TID PO 09/23/16 14:00 10/23/16 13:59 Spironolactone (Aldactone Tab) 25 mg QAM PO 09/24/16 08:00 10/24/16 08:59 Lab Results: 09/23/16 07:00 Test 09/23/16 07:00 Prothrombin Time 34.7 SECONDS (9.0-12.0) Prothromb Time International Ratio 3.1 (0.9-1.1) Anion Gap 8.0 mmol/L (3-11) Est Creatinine Clear Calc Drug Dose 34.3 ml/min Estimated GFR () 60.0 Estimated GFR (Non- 51.8 BUN/Creatinine Ratio 26.3 (10-20) Calcium Level 8.8 mg/dl (8.5-10.1)
--- NOTE | 2016-09-23 15:03 | Progress Note ---
Subjective Date of Service: Sep 23, 2016. Subjective overall pt has little improvement in le swelling and now with hematoma or right lower leg laterally, negative dopplers 09/22. will work with nephrology to attempt to push negative fluid balance by evaluation of daily weights Problem List Medical Problems: (1) CHF exacerbation Status: Acute (2) Hypoxemia Status: Acute (3) Hypoxia Status: Acute (4) Peripheral edema Status: Acute (5) Peripheral edema Status: Acute (6) Renal insufficiency Status: Acute Review of Systems Constitutional: + fatigue, + weakness, No chills, No fever Respiratory: + dyspnea on exertion, No cough, No shortness of breath Cardiac: + edema, No chest pain Abdomen: No diarrhea, No nausea, No pain, No vomiting Female : No dysuria, No urinary frequency Skin: + rash (le possible venous stasis dermatitis) Objective Vital Signs Date Time Temp Pulse Resp B/P Pulse Ox O2 Delivery O2 Flow Rate FiO2 09/23/16 04:01 Nasal Cannula 2.0 09/23/16 03:35 36.5 70 18 108/76 95 Nasal Cannula 2.0 09/23/16 00:02 Nasal Cannula 2.0 09/22/16 23:04 36.5 70 19 129/82 96 Nasal Cannula 2.0 09/22/16 20:02 Nasal Cannula 2.0 09/22/16 19:28 36.4 76 18 128/78 95 Nasal Cannula 2.0 09/22/16 16:00 Nasal Cannula 2.0 09/22/16 15:23 36.5 70 20 114/59 98 Nasal Cannula 3.0 09/22/16 12:13 36.7 76 20 132/78 94 Nasal Cannula 3.0 09/22/16 12:00 Nasal Cannula 2.0 09/22/16 08:00 Nasal Cannula 2.0 09/22/16 07:56 36.6 70 18 130/75 94 Nasal Cannula 3.0 Physical Exam General Appearance: WD/WN, + mild distress, + obese Neck: supple, no JVD Respiratory/Chest: chest non-tender, lungs clear Cardiovascular: regular rate, rhythm, + systolic murmur Abdomen: normal bowel sounds, non tender, soft Extremities: + pedal edema, + swelling (to mid thigh) Neurologic/Psychiatric: alert, oriented x 3 Laboratory Results Last 24 Hours Test 2/7/17 07:00 Prothrombin Time 34.7 SECONDS Prothromb Time International Ratio 3.1 Assessment and Plan 89 F presents with shortness of breath and hypoxia Acute on chronic diastolic CHF (congestive heart failure) nephrology helping to manage Bumex.fluid restrict, strict I&Os, and Alonso, still with only minimal weight loss and edema to thigh, discussed with nephrology 09/23 will push diuretic, legs evaluated and negative for DVT, will try TEDS and SCD with elevation to reduce swelling Acute./ kidney injury superimposed on CKD improved hold her IVIS-I , cautious increase in diuretic, ? need for diuretic gtt HTN has been reasonable with holding IVIS I Acute on chronic respiratory failure with hypoxemia Improved. baseline oxygen Atrial fibrillation Rate controlled with pacemaker, Warfarin 2mg daily. DVT prophylaxis warfarin for afib Continued [facility] stay due to: multiple IV medications needed [facility]charge planning: prison facility
[2016-09-23 15:11] VITALS: BP 132/75; PULSE 70; TEMP 36.6; O2SAT 93
[2016-09-23] MEDS: WARFARIN SOD 2 MG TAB PO SCH (16:20)
[2016-09-23] MEDS: BUMETANIDE 1 MG TAB PO SCH ×2 (16:20→19:57)
[2016-09-23] MEDS: SIMVASTATIN 5 MG TAB PO SCH (19:57)
[2016-09-24 00:07] VITALS: BP 130/68; PULSE 80; TEMP 36.8; O2SAT 92
[2016-09-24] MEDS: SPIRONOLACTONE 25 MG TAB PO SCH (07:44)
[2016-09-24] MEDS: BUMETANIDE 1 MG TAB PO SCH ×3 (07:45→19:47)
[2016-09-24] MEDS: CALCIUM 600MG + VIT D 400 IU TAB PO SCH (07:45)
[2016-09-24] MEDS: LACTOBACILLUS ACIDOPHILUS (FLORANEX) TAB PO SCH (07:45)
[2016-09-24] MEDS: CEROVITE ADV FORMULA TAB PO SCH (07:46)
[2016-09-24] MEDS: GABAPENTIN 300 MG CAP PO SCH ×2 (07:46→19:47)
[2016-09-24] MEDS: PANTOprazole SOD 40 MG TAB PO SCH ×2 (07:47→19:47)
[2016-09-24] MEDS: DICLOFENAC SOD 1% GEL 100 GM TUBE EXT SCH ×3 (07:48→15:25)
[2016-09-24 07:50] VITALS: BP 121/76; PULSE 70; TEMP 36.7; O2SAT 95
[2016-09-24] MEDS: HYDROCODONE/ACETAMOPHEN 5/325MG TAB PO PRN ×2 (07:52→15:29)
[2016-09-24] MEDS: POLYETHYLENE (MIRALAX) 17 GM PACK PO PRN (07:52)
[2016-09-24] MEDS: IRON SUCROSE INJ 200 MG in SODIUM CHLORIDE 0.9% 100ML 100 ML IV SCH (12:00)
--- NOTE | 2016-09-24 14:39 | Cardiology Follow-Up ---
Subjective Subjective Date of Service: Sep 24, 2016. Pt evaluation today including: conversation w/ patient, physical exam, chart review, lab review, review of studies, review of inpatient medication list Additional Details: Feeling well this morning. No significant shortness of breath. No chest pain. Continues to diurese very well, negative almost 2.5 liters overnight Problem List Medical Problems: (1) CHF exacerbation Status: Acute (2) Hypoxemia Status: Acute (3) Hypoxia Status: Acute (4) Peripheral edema Status: Acute (5) Peripheral edema Status: Acute (6) Renal insufficiency Status: Acute Review of Systems Constitutional: + fatigue, + weakness, No chills, No fever Respiratory: + dyspnea on exertion, + shortness of breath Cardiac: + edema, No chest pain Abdomen: No nausea, No pain Musculoskeletal: + joint pain Female : No dysuria Psychiatric: No depression symptoms Endo: + fatigue Skin: + rash (le possible venous stasis dermatitis) Objective Vital Signs Last Vital Signs Documentation Date Time Temp Pulse Resp B/P Pulse Ox O2 Delivery O2 Flow Rate FiO2 09/24/16 08:00 Room Air 09/24/16 07:50 36.7 70 18 121/76 95 2.0 Physical Exam: General Appearance: WD/WN, + obese ENT: hearing grossly normal Neck: supple, no JVD Respiratory/Chest: chest non-tender, lungs clear Cardiovascular: regular rate, rhythm, + systolic murmur Abdomen: normal bowel sounds, non tender, soft Extremities: + swelling (to knees bilaterally - significantly improved. ) Neurologic/Psychiatric: alert, oriented x 3 Skin: warm/dry Assessment and Plan 1. Acute on chronic diastolic heart failure 2. Chronic renal insufficiency. 3. Persistent atrial fibrillation. 4 Post dual-chamber pacemaker for complete heart block. 5. Atypical chest pain Continues to diurese very well, net negative almost 2.5 liters yesterday, stable renal function the same -- for now plan to continue on current t.i.d. Bumex, spironolactone added yesterday by Nephrology. -- continue to hold antihypertensive regimen Overall patient continues to improve. From a cardiac standpoint approaching suitable discharge point to rehab. Will need close follow-up with [facility] failure [facility]. Continued [facility] stay due to: multiple IV medications needed Discharge planning: care home facility Medications: Reported Home Medications Medications Dose Route/Sig Max Daily Dose Days Date Category Dose Instructions Jantoven (Warfarin Sodium) 2 Mg Tab 4 Mg PO DAILY 09/17/16 Reported TAKE 4 MG ON THURSDAY AND 2 MG THURSDAY THROUGH THURSDAY Klor-Con Pwd (Potassium Chloride) 20 Meq Pack 20 Meq PO BID 09/17/16 Reported Iron (Ferrous Sulfate) 325 Mg Tab 1 Tab PO DAILY 08/25/16 Rx Bumex (Bumetanide) 2 Mg Tab 1 Tab PO BID 30 07/25/16 Rx Voltaren 1% Top Gel (Diclofenac Sodium (Topical)) 1 % Gel Unknown Dose TOP QID 06/24/16 Reported Triamcinolone Acetonide (Triamcinolone Acet) 45 Appln/15 Gm Cr 1 Appln TOP BID 30 06/24/16 Reported Stool Softener (Sennosides-Docusate Sodium) 1 Tab Tab 1 Tab PO UD PRN 06/24/16 Reported Jantoven (Warfarin Sodium) 2 Mg Tab 1 Mg PO 6XWK 06/24/16 Reported TAKE 2 MG THURSDAY THROUGH THURSDAY AND ON THURSDAY TAKE 4 MG Nystop (Nystatin (Topical)) 100,000 Unit/Gm Pow Unknown Dose TOP TID 06/24/16 Reported Miralax (Polyethylene Glycol 3350) 1 Pow Pow 17 Gm PO DAILY 06/24/16 Reported Neurontin (Gabapentin) 300 Mg Cap 300 Mg PO BID 06/24/16 Reported Systane (Polyethylene Glycol-Propylene) 1 Madeline Madeline 1 Drop OPB HS 12/08/14 Reported Probiotic (Probiotic Product) 1 Tab Tab 1 Tab PO DAILY 12/08/14 Reported Centrum Silver Adult 50+ (Multiple Vitamins W/ Minerals) 1 Tab Tab 1 Tab PO DAILY 12/08/14 Reported Ativan (Lorazepam) 0.5 Mg Tab 0.5 Mg PO HS PRN 12/08/14 Reported Prilosec (Omeprazole) 20 Mg Cap 20 Mg PO BID 10/11/14 Reported Caltrate 600 Plus (Calcium Carbonate-Vitamin D W/) 1 Tab Tab 1 Tablet PO DAILY 12/16/12 Reported Zocor (Simvastatin) 5 Mg Tab 5 Mg PO QPM 12/16/12 Reported [place] 5MG/325MG (Acetaminophen/Hydrocodone Bitart) Tab 1 Tablet PO Q6H PRN 12/16/12 Reported Lotrel 10MG/20MG (Amlodipine/Benazepril HCl) 10 Mg/20 Mg Cap 1 Capsule PO DAILY 12/16/12 Reported
--- NOTE | 2016-09-24 15:07 | Nephrology Progress Note ---
Nephrology Progress Note Date of Service Sep 24, 2016. Chief Complaint Cardiorenal syndrome Subjective Rhoda was seen and evaluated in her hospital room this morning. I reviewed the plan of care with Dr. Cassidy. Rhoda has noted some improvement in her lower extremity edema. Overall, she feels well. She has fears about being discharged too soon. She continues to feel weak. Appetite is good. Review of Systems A complete review of systems was performed. Pertinent positives are noted above. All other systems are negative. Vital Signs Last 8 Hrs Date Time Temp Pulse Resp B/P Pulse Ox O2 Delivery O2 Flow Rate FiO2 09/24/16 08:00 Room Air 09/24/16 07:50 36.7 70 18 121/76 95 Nasal Cannula 2.0 I & O 24-Hour Column 09/24/16 07:59 Intake Total 755 ml Output Total 5250 ml Balance -4495 ml Last Recorded Weight Weight (Kilograms): 73.300 Physical Exam General Appearance: WD/WN, no apparent distress Head: normocephalic, atraumatic Eyes: normal inspection, sclerae normal ENT: normal ENT inspection, pharynx normal Neck: supple, no JVD Respiratory/Chest: lungs clear, no respiratory distress, no accessory muscle use Cardiovascular: regular rate, rhythm, no gallop, no murmur Abdomen/GI: non tender, soft Extremities/Musculoskelatal: + pertinent finding (4+ pitting BL E edema with TEDS) Neurologic/Psych: alert, oriented x 3 Family History Cancer Diabetes mellitus Heart disease Hypertension Lung disease Social History Smoking Status: Never smoker Drug Use: none Marital Status: Occupation: retired Allergies Coded Allergies: Phenobarbital (Verified Allergy, Intermediate, ITCHINESS, 09/19/16) Morphine (Verified Allergy, Unknown, swelling, 09/17/16) Medications Current Inpatient Medications Medications (Trade) Dose Ordered Sig/Naren Route Start Time Stop Time Status Last Admin Dose Admin Acetaminophen (Tylenol Tab) 650 mg Q4H PRN PO 09/17/16 18:45 10/17/16 18:44 Ondansetron HCl (Zofran Inj) 4 mg Q6H PRN IV 09/17/16 18:45 10/17/16 18:44 Polyethylene (Miralax Powder Packet) 17 gm DAILY PRN PO 09/17/16 18:45 10/17/16 18:44 09/24/16 07:52 17 GM Calcium/Vitamin D (Caltrate Plus Tab) 1 tab DAILY PO 09/18/16 09:00 10/18/16 08:59 09/24/16 07:45 1 TAB Gabapentin (Neurontin Cap) 300 mg BID PO 09/17/16 21:00 10/17/16 20:59 09/24/16 07:46 300 MG Acetaminophen/ Hydrocodone Bitart (Lyman 5/325 Tab) 1 tab Q6H PRN PO 09/17/16 18:45 10/01/16 18:44 09/24/16 07:52 1 TAB Lorazepam (Ativan Tab) 0.5 mg HS PRN PO 09/17/16 18:45 10/17/16 18:44 09/21/16 21:02 0.5 MG Multivitamins/ Minerals (Multivitamin W/ Minerals Tab) 1 tab DAILY PO 09/18/16 09:00 10/18/16 08:59 09/24/16 07:46 1 TAB Senna/Docusate Sodium (Senokot S Tab) 1 tab DAILY PRN PO 09/17/16 18:45 10/17/16 18:44 09/22/16 08:58 1 TAB Simvastatin (Zocor Tab) 5 mg QPM PO 09/17/16 21:00 10/17/16 20:59 09/23/16 19:57 5 MG Pantoprazole Sodium (Protonix Tab) 40 mg BID PO 09/17/16 21:00 10/17/16 20:59 09/24/16 07:47 40 MG Miscellaneous Information (Order Awaiting Action) 1 ea QS N/A 09/18/16 00:00 10/18/16 00:00 09/18/16 21:23 1 EA Lactobacillus Acidophilus (Floranex Tab) 4 tab DAILY PO 09/18/16 09:00 10/18/16 08:59 09/24/16 07:45 4 TAB Warfarin Sodium 2 mg 2 mg DAILY@16 PO 09/18/16 16:00 10/18/16 15:59 09/23/16 16:20 2 MG Iron Sucrose/ Sodium Chloride (Venofer Inj/Nss 100ml) 110 ml @ 220 mls/hr Q2D@1200 IV 09/18/16 12:00 09/26/16 12:29 09/18/16 12:43 220 MLS/HR Diclofenac Sodium (Voltaren 1% Top Gel) 1 appln [id number] EXT 09/19/16 12:00 10/19/16 11:59 09/24/16 12:17 1 APPLN Lorazepam (Ativan Inj) 1 mg Q4H PRN IV 09/22/16 12:30 10/22/16 12:29 Lorazepam (Ativan Inj) 0.5 mg Q4H PRN IV 09/22/16 12:30 10/22/16 12:29 Lorazepam (Ativan Tab) 0.5 mg Q6 PRN PO 09/22/16 12:30 10/22/16 12:29 Bumetanide (Bumex Tab) 2 mg TID PO 09/23/16 14:00 10/23/16 13:59 09/24/16 13:41 2 MG Spironolactone (Aldactone Tab) 25 mg QAM PO 09/24/16 08:00 10/24/16 08:59 09/24/16 07:44 25 MG Impression (1) Acute on chronic diastolic CHF (congestive heart failure) (2) Hyponatremia (3) Hypokalemia (4) Acute kidney injury superimposed on CKD (5) Anemia Mindy is a 89-year-old female with hypertension, chronic diastolic CHF and diuretic resistant volume overload admitted with progressive worsening of lower extremity edema and shortness of breath. She has been on Bumex 2 milligram twice a day at home. On admission she was found to have hyponatremia serum sodium 127 which improved with adjustment of diuretics. Also found to have acute kidney injury creatinine 1.4 with her baseline creatinine at 0.9. Over last few months she had recurrent hospital admission for CHF exacerbation. In July she was started on Bumex 1 milligram twice a day and metolazone however she developed hyponatremia and significant volume depletion with metolazone. during her hospital admission in August for hyponatremia metolazone was discontinued and Bumex was increased to 2 milligram twice a day however she reports poor response to Bumex and progressive worsening of her volume status. Echo in June 2016 showed moderate LVH, elevated right ventricular pressure and normal EF 50-55 percent. She also has chronic anemia, during last admission iron study showed significant iron deficiency but stool occult blood test was negative. Has history of AFib, on Coumadin on admission her INR was supra therapeutic which improved. Has been responding to diuretics but continues to have significant lower extremity edema. Venous Doppler lower extremity was negative for DVT or venous insufficiency. Recommendations -- Bumex 2 mg PO TID; goal negative fluid balance >2 L daily -- Restrict free water intake to < 1200 mL per day -- Venofer 200 mg daily x 5 (patient refused today's dose) -- Renal panel daily, magnesium and phosphate Q 48 hours while inpatient and repeat within 1 week of discharge -- Alonso management per protocol -- Voiding trial prior to discharge -- Document I/O -- Continue to hold IVIS/ARB at this time -- Spironolactone 25 mg daily started yesterday
[2016-09-24 15:16] VITALS: BP 117/73; PULSE 78; TEMP 36.7; O2SAT 95
[2016-09-24] MEDS: WARFARIN SOD 2 MG TAB PO SCH (15:28)
--- NOTE | 2016-09-24 15:59 | Progress Note ---
Subjective Date of Service: Sep 24, 2016. Subjective this pt had a good night, good diuresis and good rest did update her daughter bing and she is pleased Problem List Medical Problems: (1) CHF exacerbation Status: Acute (2) Hypoxemia Status: Acute (3) Hypoxia Status: Acute (4) Peripheral edema Status: Acute (5) Peripheral edema Status: Acute (6) Renal insufficiency Status: Acute Review of Systems Constitutional: No chills, No fever Respiratory: No cough, No sputum Cardiac: + edema (++), No chest pain, No orthopnea Abdomen: No nausea, No pain Neurologic: + memory loss, No paralysis Objective Vital Signs Date Time Temp Pulse Resp B/P Pulse Ox O2 Delivery O2 Flow Rate FiO2 09/24/16 15:16 36.7 78 18 117/73 95 Nasal Cannula 2.0 09/24/16 08:00 Room Air 09/24/16 07:50 36.7 70 18 121/76 95 Nasal Cannula 2.0 09/24/16 00:07 36.8 80 20 130/68 92 2.0 09/24/16 00:00 Nasal Cannula 09/23/16 20:00 Nasal Cannula 09/23/16 16:00 Nasal Cannula 2.0 Physical Exam General Appearance: WD/WN, + mild distress Respiratory/Chest: chest non-tender, lungs clear, + decreased breath sounds ( bases) Cardiovascular: regular rate, rhythm, no murmur Abdomen: normal bowel sounds, non tender, soft Extremities: + pedal edema, + pertinent finding Neurologic/Psychiatric: alert, oriented x 3 Assessment and Plan 89 F presents with shortness of breath and hypoxia Acute on chronic diastolic CHF (congestive heart failure) nephrology helping to manage Bumex.fluid restrict, strict I&Os, and Alonso,became more agressive with diuretics after discussion with nephrology 09/23 3 kg loss with this plus TEDS and SCD, pt notes clinically less heavy feeling legs Acute./ kidney injury superimposed on CKD improved no change with more diuretics HTN has been reasonable with holding IVIS I Acute on chronic respiratory failure with hypoxemia Improved. baseline oxygen Atrial fibrillation Rate controlled with pacemaker, Warfarin 2mg daily. DVT prophylaxis warfarin for afib PT/OT consider move to disposition thursday if able Continued [facility] stay due to: multiple IV medications needed [facility]charge planning[facility]
[2016-09-24] MEDS: SIMVASTATIN 5 MG TAB PO SCH (19:46)
[2016-09-24 23:07] VITALS: BP 118/75; PULSE 70; TEMP 36.6; O2SAT 96
[2016-09-25 07:05] VITALS: BP 117/76; PULSE 70; TEMP 36.8; O2SAT 95
[2016-09-25] MEDS: SPIRONOLACTONE 25 MG TAB PO SCH (07:45)
[2016-09-25] MEDS: PANTOprazole SOD 40 MG TAB PO SCH ×2 (07:45→20:41)
[2016-09-25] MEDS: GABAPENTIN 300 MG CAP PO SCH ×2 (07:46→20:42)
[2016-09-25] MEDS: CALCIUM 600MG + VIT D 400 IU TAB PO SCH (07:46)
[2016-09-25] MEDS: LACTOBACILLUS ACIDOPHILUS (FLORANEX) TAB PO SCH (07:46)
[2016-09-25] MEDS: CEROVITE ADV FORMULA TAB PO SCH (07:46)
[2016-09-25] MEDS: BUMETANIDE 1 MG TAB PO SCH ×2 (07:47→17:09)
[2016-09-25] MEDS: DICLOFENAC SOD 1% GEL 100 GM TUBE EXT SCH ×3 (07:47→17:08)
[2016-09-25] MEDS: HYDROCODONE/ACETAMOPHEN 5/325MG TAB PO PRN ×2 (07:52→19:47)
[2016-09-25 10:18] LABS: BUN/CREATININE RATIO 20.8 (10-20); CALCIUM 8.5 mg/dl (8.5-10.1); CREATININE 1.1 mg/dl (0.60-1.20); MAGNESIUM 1.7 mg/dl (1.8-2.4); POTASSIUM 3.2 mmol/L (3.5-5.1)
--- NOTE | 2016-09-25 10:44 | Nephrology Progress Note ---
Nephrology Progress Note Date of Service Sep 25, 2016. Chief Complaint Cardiorenal syndrome Subjective No acute events overnight. No complaints this morning. Appetite good. Out of bed to chair. Lower extremity edema notably improved. Legs are slightly tender and she was not able to tolerate compression stockings this morning. She is voiding urine without difficulty. Review of Systems A complete review of systems was performed. Pertinent positives are noted above. All other systems are negative. Vital Signs Last 8 Hrs Date Time Temp Pulse Resp B/P Pulse Ox O2 Delivery O2 Flow Rate FiO2 09/25/16 08:00 Nasal Cannula 2.0 09/25/16 07:05 36.8 70 18 117/76 95 2.0 I & O 24-Hour Column 09/25/16 07:59 Intake Total 360 ml Output Total 2325 ml Balance -1965 ml Last Recorded Weight Weight (Kilograms): 73.000 Physical Exam General Appearance: WD/WN, no apparent distress Head: normocephalic, atraumatic Eyes: normal inspection, sclerae normal ENT: normal ENT inspection, pharynx normal Neck: supple, no JVD Respiratory/Chest: lungs clear, no respiratory distress, no accessory muscle use Cardiovascular: regular rate, rhythm Abdomen/GI: non tender, soft Genitourinary - Female: + pertinent finding (Alonso draining yellow urine) Extremities/Musculoskelatal: normal inspection, + pedal edema Neurologic/Psych: alert, normal mood/affect Family History Cancer Diabetes mellitus Heart disease Hypertension Lung disease Social History Smoking Status: Never smoker Drug Use: none Marital Status: Occupation: retired Laboratory Results Past 24 Hours 09/25/16 09:37 Test 09/25/16 09:37 Anion Gap 8.0 mmol/L (3-11) Est Creatinine Clear Calc Drug Dose 29.4 ml/min Estimated GFR () 51.5 Estimated GFR (Non- 44.5 BUN/Creatinine Ratio 20.8 (10-20) Calcium Level 8.5 mg/dl (8.5-10.1) Magnesium Level 1.7 mg/dl (1.8-2.4) Allergies Coded Allergies: Phenobarbital (Verified Allergy, Intermediate, ITCHINESS, 09/19/16) Morphine (Verified Allergy, Unknown, swelling, 09/17/16) Medications Current Inpatient Medications Medications (Trade) Dose Ordered Sig/Naren Route Start Time Stop Time Status Last Admin Dose Admin Acetaminophen (Tylenol Tab) 650 mg Q4H PRN PO 09/17/16 18:45 10/17/16 18:44 Ondansetron HCl (Zofran Inj) 4 mg Q6H PRN IV 09/17/16 18:45 10/17/16 18:44 Polyethylene (Miralax Powder Packet) 17 gm DAILY PRN PO 09/17/16 18:45 10/17/16 18:44 09/24/16 07:52 17 GM Calcium/Vitamin D (Caltrate Plus Tab) 1 tab DAILY PO 09/18/16 09:00 10/18/16 08:59 09/25/16 07:46 1 TAB Gabapentin (Neurontin Cap) 300 mg BID PO 09/17/16 21:00 10/17/16 20:59 09/25/16 07:46 300 MG Acetaminophen/ Hydrocodone Bitart ([place]en 5/325 Tab) 1 tab Q6H PRN PO 09/17/16 18:45 10/01/16 18:44 09/25/16 07:52 1 TAB Lorazepam (Ativan Tab) 0.5 mg HS PRN PO 09/17/16 18:45 10/17/16 18:44 09/21/16 21:02 0.5 MG Multivitamins/ Minerals (Multivitamin W/ Minerals Tab) 1 tab DAILY PO 09/18/16 09:00 10/18/16 08:59 09/25/16 07:46 1 TAB Senna/Docusate Sodium (Senokot S Tab) 1 tab DAILY PRN PO 09/17/16 18:45 10/17/16 18:44 09/22/16 08:58 1 TAB Simvastatin (Zocor Tab) 5 mg QPM PO 09/17/16 21:00 10/17/16 20:59 09/24/16 19:46 5 MG Pantoprazole Sodium (Protonix Tab) 40 mg BID PO 09/17/16 21:00 10/17/16 20:59 09/25/16 07:45 40 MG Miscellaneous Information (Order Awaiting Action) 1 ea QS N/A 09/18/16 00:00 10/18/16 00:00 09/18/16 21:23 1 EA Lactobacillus Acidophilus (Floranex Tab) 4 tab DAILY PO 09/18/16 09:00 10/18/16 08:59 09/25/16 07:46 4 TAB Warfarin Sodium 2 mg 2 mg DAILY@16 PO 09/18/16 16:00 10/18/16 15:59 09/24/16 15:28 2 MG Iron Sucrose/ Sodium Chloride (Venofer Inj/Nss 100ml) 110 ml @ 220 mls/hr Q2D@1200 IV 09/18/16 12:00 09/26/16 12:29 09/18/16 12:43 220 MLS/HR Diclofenac Sodium (Voltaren 1% Top Gel) 1 appln 3XDQ4 EXT 09/19/16 12:00 10/19/16 11:59 09/25/16 07:47 1 APPLN Lorazepam (Ativan Inj) 1 mg Q4H PRN IV 09/22/16 12:30 10/22/16 12:29 Lorazepam (Ativan Inj) 0.5 mg Q4H PRN IV 09/22/16 12:30 10/22/16 12:29 Lorazepam (Ativan Tab) 0.5 mg Q6 PRN PO 09/22/16 12:30 10/22/16 12:29 Bumetanide (Bumex Tab) 2 mg TID PO 09/23/16 14:00 10/23/16 13:59 09/25/16 07:47 2 MG Spironolactone (Aldactone Tab) 25 mg QAM PO 09/24/16 08:00 10/24/16 08:59 09/25/16 07:45 25 MG Impression (1) Acute on chronic diastolic CHF (congestive heart failure) (2) Hyponatremia (3) Hypokalemia (4) Acute kidney injury superimposed on CKD (5) Anemia Mindy is a 89-year-old female with hypertension, chronic diastolic CHF and diuretic resistant volume overload admitted with progressive worsening of lower extremity edema and shortness of breath. On admission she was found to have hyponatremia serum sodium 127 which improved with adjustment of diuretics. Also found to have acute kidney injury creatinine 1.4 with her baseline creatinine at 0.9. AUSTYN has resolved consistent with CRS. Over last few months she had recurrent hospital admission for CHF exacerbation. In July she was started on Bumex 1 milligram twice a day and metolazone however she developed hyponatremia and significant volume depletion with metolazone. during her hospital admission in August for hyponatremia metolazone was discontinued and Bumex was increased to 2 milligram twice a day however she reports poor response to Bumex and progressive worsening of her volume status. Echo in June 2016 showed moderate LVH, elevated right ventricular pressure and normal EF 50-55 percent. She also has chronic anemia, during last admission iron study showed significant iron deficiency but stool occult blood test was negative. Has history of AFib, on Coumadin on admission her INR was supra therapeutic which improved. Has been responding to diuretics but continues to have significant lower extremity edema. Venous Doppler lower extremity was negative for DVT or venous insufficiency. Recommendations -- Bumex switched to 3 mg BID -- Restrict free water intake to < 1500 ml/d -- Venofer 200 mg daily x 5 -- Renal panel daily, magnesium and phosphate Q 48 hours while inpatient and repeat within 1 week of discharge -- Remove Celeste today -- Document I/O -- Continue to hold IVIS/ARB at this time -- Spironolactone 25 mg daily -- Encourage PT lymphedema treatment as outpatient
--- NOTE | 2016-09-25 15:51 | Progress Note ---
Subjective Date of Service: Sep 25, 2016. Subjective pt continues to feel better, nephrology did add spironolactone and increased bumex to 3 mg bid pt feels legs are less tight and can ambulate in room Problem List Medical Problems: (1) CHF exacerbation Status: Acute (2) Hypoxemia Status: Acute (3) Hypoxia Status: Acute (4) Peripheral edema Status: Acute (5) Peripheral edema Status: Acute (6) Renal insufficiency Status: Acute Review of Systems Constitutional: + fatigue, + weakness, No chills, No fever Cardiac: + edema, No chest pain Abdomen: No diarrhea, No nausea, No pain, No vomiting Musculoskeletal: No joint pain, No muscle pain Psychiatric: No anhedonism, No anxiety, No depression symptoms Endo: + fatigue Objective Vital Signs Date Time Temp Pulse Resp B/P Pulse Ox O2 Delivery O2 Flow Rate FiO2 09/25/16 07:05 36.8 70 18 117/76 95 2.0 09/25/16 00:00 Nasal Cannula 2.0 09/24/16 23:07 36.6 70 18 118/75 96 Nasal Cannula 2.0 09/24/16 20:00 Nasal Cannula 2.0 09/24/16 16:00 Nasal Cannula 2.0 09/24/16 15:16 36.7 78 18 117/73 95 Nasal Cannula 2.0 Physical Exam General Appearance: + mild distress, + obese Neck: supple, thyroid normal Respiratory/Chest: chest non-tender, + decreased breath sounds Cardiovascular: regular rate, rhythm (despite history of afib( maybe paced)), + systolic murmur Abdomen: normal bowel sounds, non tender, soft Extremities: no calf tenderness, + pedal edema, + swelling (in thighs is less) Neurologic/Psychiatric: alert, oriented x 3 Laboratory Results Last 24 Hours Test 09/25/16 08:46 Assessment and Plan 89 F presents with shortness of breath and hypoxia Acute on chronic diastolic CHF (congestive heart failure) nephrology helping to manage Bumex.fluid restrict, strict I&Os, and Alonso,became more agressive with diuretics after discussion with nephrology 09/23 added spironolactone 09/25, TEDS and SCD, added venofer 09/25 Acute./ kidney injury superimposed on CKD improved no change with more diuretics HTN has been reasonable with holding IVIS I, continue to hold to avoid renal injury Acute on chronic respiratory failure with hypoxemia Improved. baseline oxygen Atrial fibrillation Rate controlled with pacemaker, Warfarin 2mg daily. DVT prophylaxis warfarin for afib PT/OT consider move to disposition thursday if able Continued [facility] stay due to: multiple IV medications needed Discharge planning: group home facility
[2016-09-25] MEDS ORDERED: MAGNESIUM SULFATE 1GM / D5W 1 GM in PREMIXED IN D5W 100 ML IV ONE (16:00)
[2016-09-25 16:38] VITALS: BP 125/73; PULSE 70; TEMP 36.7; O2SAT 95
[2016-09-25] MEDS: POTASSIUM CHLR 10 MEQ / WTR 10 MEQ in PREMIXED WATER 100 ML IV SCH ×3 (17:07→20:40)
[2016-09-25] MEDS: WARFARIN SOD 2 MG TAB PO SCH (17:10)
[2016-09-25] MEDS: POTASSIUM CHLORIDE 20 MEQ TABCR PO SCH (20:41)
[2016-09-25] MEDS: SIMVASTATIN 5 MG TAB PO SCH (20:43)
[2016-09-25] MEDS: LORAZEPAM 0.5 MG TAB PO PRN (23:42)
[2016-09-26] VITALS: BP 126/78; PULSE 70; TEMP 36.6; O2SAT 94
[2016-09-26 07:20] VITALS: BP 131/84; PULSE 82; TEMP 36.7; O2SAT 93
[2016-09-26 07:27] LABS: BUN/CREATININE RATIO 24.1 (10-20); CALCIUM 8.5 mg/dl (8.5-10.1); CREATININE 1.1 mg/dl (0.60-1.20); POTASSIUM 3.2 mmol/L (3.5-5.1)
[2016-09-26] MEDS: BUMETANIDE 1 MG TAB PO SCH ×2 (07:37→16:52)
[2016-09-26] MEDS: PANTOprazole SOD 40 MG TAB PO SCH ×2 (07:37→20:38)
[2016-09-26] MEDS: POTASSIUM CHLORIDE 20 MEQ TABCR PO SCH ×2 (07:37→20:37)
[2016-09-26] MEDS: GABAPENTIN 300 MG CAP PO SCH ×2 (07:37→20:37)
[2016-09-26] MEDS: CEROVITE ADV FORMULA TAB PO SCH (07:37)
[2016-09-26] MEDS: LACTOBACILLUS ACIDOPHILUS (FLORANEX) TAB PO SCH (07:38)
[2016-09-26] MEDS: DICLOFENAC SOD 1% GEL 100 GM TUBE EXT SCH ×3 (07:38→16:03)
[2016-09-26] MEDS: SPIRONOLACTONE 25 MG TAB PO SCH ×2 (07:38→16:51)
[2016-09-26] MEDS: CALCIUM 600MG + VIT D 400 IU TAB PO SCH (07:38)
--- NOTE | 2016-09-26 10:21 | Nephrology Progress Note ---
Nephrology Progress Note Date of Service Sep 26, 2016. Chief Complaint Cardiorenal syndrome Subjective No acute events overnight. No complaints this morning. Denies pain. Denies shortness of breath. Edema slowly improving. Out of bed ambulating in room. I discussed the plan of care with Dr. Cassidy this morning. Review of Systems A complete review of systems was performed. Pertinent positives are noted above. All other systems are negative. Vital Signs Last 8 Hrs Date Time Temp Pulse Resp B/P Pulse Ox O2 Delivery O2 Flow Rate FiO2 09/26/16 08:00 Nasal Cannula 2.0 09/26/16 07:20 36.7 82 20 131/84 93 2.0 I & O 24-Hour Column 09/26/16 08:00 Intake Total 1086 ml Output Total 1400 ml Balance -314 ml Last Recorded Weight Weight (Kilograms): 73.300 Physical Exam General Appearance: WD/WN, + obese Head: normocephalic, atraumatic Eyes: normal inspection, sclerae normal ENT: normal ENT inspection, pharynx normal Neck: supple, no JVD Respiratory/Chest: lungs clear, no respiratory distress, no accessory muscle use Cardiovascular: regular rate, rhythm, no gallop Abdomen/GI: non tender, soft Extremities/Musculoskelatal: normal inspection, + pedal edema (improving lower extremity edema to mid thigh) Neurologic/Psych: alert, oriented x 3 Family History Cancer Diabetes mellitus Heart disease Hypertension Lung disease Social History Smoking Status: Never smoker Drug Use: none Marital Status: Occupation: retired Laboratory Results Past 24 Hours 09/26/16 06:25 Test 09/26/16 06:25 Anion Gap 9.0 mmol/L (3-11) Est Creatinine Clear Calc Drug Dose 29.5 ml/min Estimated GFR () 51.5 Estimated GFR (Non- 44.5 BUN/Creatinine Ratio 24.1 (10-20) Calcium Level 8.5 mg/dl (8.5-10.1) Allergies Coded Allergies: Phenobarbital (Verified Allergy, Intermediate, ITCHINESS, 09/19/16) Morphine (Verified Allergy, Unknown, swelling, 09/17/16) Medications Current Inpatient Medications Medications (Trade) Dose Ordered Sig/Naren Route Start Time Stop Time Status Last Admin Dose Admin Acetaminophen (Tylenol Tab) 650 mg Q4H PRN PO 09/17/16 18:45 10/17/16 18:44 Ondansetron HCl (Zofran Inj) 4 mg Q6H PRN IV 09/17/16 18:45 10/17/16 18:44 Polyethylene (Miralax Powder Packet) 17 gm DAILY PRN PO 09/17/16 18:45 10/17/16 18:44 09/24/16 07:52 17 GM Calcium/Vitamin D (Caltrate Plus Tab) 1 tab DAILY PO 09/18/16 09:00 10/18/16 08:59 09/26/16 07:38 1 TAB Gabapentin (Neurontin Cap) 300 mg BID PO 09/17/16 21:00 10/17/16 20:59 09/26/16 07:37 300 MG Acetaminophen/ Hydrocodone Bitart ([place]ull 5/325 Tab) 1 tab Q6H PRN PO 09/17/16 18:45 10/01/16 18:44 09/25/16 19:47 1 TAB Lorazepam (Ativan Tab) 0.5 mg HS PRN PO 09/17/16 18:45 10/17/16 18:44 09/25/16 23:42 0.5 MG Multivitamins/ Minerals (Multivitamin W/ Minerals Tab) 1 tab DAILY PO 09/18/16 09:00 10/18/16 08:59 09/26/16 07:37 1 TAB Senna/Docusate Sodium (Senokot S Tab) 1 tab DAILY PRN PO 09/17/16 18:45 10/17/16 18:44 09/22/16 08:58 1 TAB Simvastatin (Zocor Tab) 5 mg QPM PO 09/17/16 21:00 10/17/16 20:59 09/25/16 20:43 5 MG Pantoprazole Sodium (Protonix Tab) 40 mg BID PO 09/17/16 21:00 10/17/16 20:59 09/26/16 07:37 40 MG Miscellaneous Information (Order Awaiting Action) 1 ea QS N/A 09/18/16 00:00 10/18/16 00:00 09/18/16 21:23 1 EA Lactobacillus Acidophilus (Floranex Tab) 4 tab DAILY PO 09/18/16 09:00 10/18/16 08:59 09/26/16 07:38 4 TAB Warfarin Sodium 2 mg 2 mg DAILY@16 PO 09/18/16 16:00 10/18/16 15:59 09/25/16 17:10 2 MG Iron Sucrose/ Sodium Chloride (Venofer Inj/Nss 100ml) 110 ml @ 220 mls/hr Q2D@1200 IV 09/18/16 12:00 09/26/16 12:29 09/18/16 12:43 220 MLS/HR Diclofenac Sodium (Voltaren 1% Top Gel) 1 appln 3XDQ4 EXT 09/19/16 12:00 10/19/16 11:59 09/26/16 07:38 1 APPLN Lorazepam (Ativan Inj) 1 mg Q4H PRN IV 09/22/16 12:30 10/22/16 12:29 Lorazepam (Ativan Inj) 0.5 mg Q4H PRN IV 09/22/16 12:30 10/22/16 12:29 Lorazepam (Ativan Tab) 0.5 mg Q6 PRN PO 09/22/16 12:30 10/22/16 12:29 Spironolactone (Aldactone Tab) 25 mg QAM PO 09/24/16 08:00 10/24/16 08:59 09/26/16 07:38 25 MG Bumetanide (Bumex Tab) 2 mg BID17 PO 09/25/16 17:00 10/25/16 16:59 09/26/16 07:37 2 MG Potassium Chloride (Klor-Con Tab) 20 meq BID PO 09/25/16 20:00 10/25/16 19:59 09/26/16 07:37 20 MEQ Impression (1) Acute on chronic diastolic CHF (congestive heart failure) (2) Hyponatremia (3) Hypokalemia (4) Acute kidney injury superimposed on CKD (5) Anemia Mindy is a 89-year-old female with hypertension, chronic diastolic CHF and diuretic resistant volume overload admitted with progressive worsening of lower extremity edema and shortness of breath. On admission she was found to have hyponatremia serum sodium 127 which improved with adjustment of diuretics. Also found to have acute kidney injury creatinine 1.4 with her baseline creatinine at 0.9. AUSTYN has resolved consistent with CRS. Over last few months she had recurrent hospital admission for CHF exacerbation. In July she was started on Bumex 1 milligram twice a day and metolazone however she developed hyponatremia and significant volume depletion with metolazone. during her hospital admission in August for hyponatremia metolazone was discontinued and Bumex was increased to 2 milligram twice a day however she reports poor response to Bumex and progressive worsening of her volume status. Echo in June 2016 showed moderate LVH, elevated right ventricular pressure and normal EF 50-55 percent. She also has chronic anemia, during last admission iron study showed significant iron deficiency but stool occult blood test was negative. Has history of AFib, on Coumadin on admission her INR was supra therapeutic which improved. Has been responding to diuretics but continues to have significant lower extremity edema. Venous Doppler lower extremity was negative for DVT or venous insufficiency. Recommendations -- Bumex 2 mg BID -- Spironolactone increased to 25 mg BID -- Increased KCl to 40 mEq BID -- Restrict free water intake to < 1500 ml/d -- Check renal panel tomorrow AM -- Renal panel daily, magnesium and phosphate within 1 week of discharge -- Continue to hold IVIS/ARB at this time
[2016-09-26] MEDS: IRON SUCROSE INJ 200 MG in SODIUM CHLORIDE 0.9% 100ML 100 ML IV SCH (11:44)
[2016-09-26] MEDS ORDERED: POTASSIUM CHLORIDE 20 MEQ TABCR PO ONE (14:38)
--- NOTE | 2016-09-26 14:43 | Progress Note ---
Subjective Date of Service: Sep 26, 2016. Subjective pt clinically looks and feels improved, still with leg swelling but able to move around much better Problem List Medical Problems: (1) CHF exacerbation Status: Acute (2) Hypoxemia Status: Acute (3) Hypoxia Status: Acute (4) Peripheral edema Status: Acute (5) Peripheral edema Status: Acute (6) Renal insufficiency Status: Acute Review of Systems Constitutional: No chills, No fever Respiratory: No cough, No shortness of breath, No sputum Cardiac: + edema, No chest pain Abdomen: No diarrhea, No nausea, No pain, No vomiting Musculoskeletal: + muscle pain Female : No dysuria, No urinary frequency Objective Vital Signs Date Time Temp Pulse Resp B/P Pulse Ox O2 Delivery O2 Flow Rate FiO2 09/26/16 08:00 Nasal Cannula 2.0 09/26/16 07:20 36.7 82 20 131/84 93 2.0 09/26/16 00:30 Nasal Cannula 2.0 09/26/16 00:00 36.6 70 20 126/78 94 2.0 09/25/16 16:38 36.7 70 20 125/73 95 Nasal Cannula 2.0 09/25/16 16:15 Nasal Cannula 2.0 Physical Exam General Appearance: WD/WN, + mild distress Neck: supple, thyroid normal Respiratory/Chest: chest non-tender, lungs clear, normal breath sounds Cardiovascular: no gallop, + systolic murmur Abdomen: normal bowel sounds, non tender, soft Neurologic/Psychiatric: alert, oriented x 3 Laboratory Results Last 24 Hours Test 09/26/16 06:25 Sodium Level 139 mmol/L Potassium Level 3.2 mmol/L Chloride Level 95 mmol/L Carbon Dioxide Level 35 mmol/L Anion Gap 9.0 mmol/L Blood Urea Nitrogen 27 mg/dl Creatinine 1.10 mg/dl Est Creatinine Clear Calc Drug Dose 29.5 ml/min Estimated GFR () 51.5 Estimated GFR (Non- 44.5 BUN/Creatinine Ratio 24.1 Random Glucose 104 mg/dl Calcium Level 8.5 mg/dl Assessment and Plan 89 F presents with shortness of breath and hypoxia Acute on chronic diastolic CHF (congestive heart failure) nephrology helping to manage Bumex added spironolactone 09/25, TEDS and SCD, added venofer 09/25, dry weight seems to be around 73 KG Acute./ kidney injury superimposed on CKD improved no change with more diuretics HTN has been reasonable with holding IVIS I, will hold on discharge Acute on chronic respiratory failure with hypoxemia Improved. baseline oxygen Atrial fibrillation Rate controlled with pacemaker, Warfarin 2mg daily. DVT prophylaxis warfarin for afib may benefit from lymphedema treatment if able to arrange Continued [facility] stay due to: multiple IV medications needed Discharge planning: nursing home facility
[2016-09-26] MEDS ORDERED: MICONAZOLE NITRATE POWDER 43 GM EXT PRN (14:45)
[2016-09-26] MEDS ORDERED: NURSING VERBAL MED ORDER ONE (14:45)
[2016-09-26 15:32] LABS: INR 3.4 (0.9-1.1); PROTHROMBIN TIME (PATIENT) 38.5 SECONDS (9.0-12.0)
[2016-09-26 16:02] VITALS: BP 131/83; PULSE 83; TEMP 36.6; O2SAT 97
[2016-09-26] MEDS: WARFARIN SOD 2 MG TAB PO SCH (16:04)
[2016-09-26] MEDS: HYDROCODONE/ACETAMOPHEN 5/325MG TAB PO PRN (16:09)
[2016-09-26] MEDS: SIMVASTATIN 5 MG TAB PO SCH (20:38)
[2016-09-26] MEDS: LORAZEPAM 0.5 MG TAB PO PRN (23:23)
[2016-09-26 23:58] VITALS: BP 133/69; PULSE 70; TEMP 36.6; O2SAT 90
[2016-09-27 07:31] LABS: INR 3.3 (0.9-1.1); PROTHROMBIN TIME (PATIENT) 36.6 SECONDS (9.0-12.0)
[2016-09-27] MEDS: HYDROCODONE/ACETAMOPHEN 5/325MG TAB PO PRN (07:47)
[2016-09-27 07:48] VITALS: BP 140/71; PULSE 98
[2016-09-27] MEDS: DICLOFENAC SOD 1% GEL 100 GM TUBE EXT SCH (07:52)
[2016-09-27] MEDS: LACTOBACILLUS ACIDOPHILUS (FLORANEX) TAB PO SCH (07:53)
[2016-09-27] MEDS: CALCIUM 600MG + VIT D 400 IU TAB PO SCH (07:53)
[2016-09-27] MEDS: POTASSIUM CHLORIDE 20 MEQ TABCR PO SCH (07:54)
[2016-09-27] MEDS: SPIRONOLACTONE 25 MG TAB PO SCH (07:54)
[2016-09-27] MEDS: CEROVITE ADV FORMULA TAB PO SCH (07:54)
[2016-09-27] MEDS ORDERED: CMD2 PO (07:55)
[2016-09-27] MEDS ORDERED: OMEP20CA9 PO (07:55)
[2016-09-27] MEDS ORDERED: GABA-113 PO (07:55)
[2016-09-27] MEDS: BUMETANIDE 1 MG TAB PO SCH (07:55)
[2016-09-27] MEDS ORDERED: SPR25 PO (07:55)
[2016-09-27] MEDS ORDERED: BUME2TAB3 PO (07:55)
[2016-09-27] MEDS: GABAPENTIN 300 MG CAP PO SCH (07:55)
[2016-09-27] MEDS ORDERED: SENNTAB23 PO (07:55)
[2016-09-27] MEDS ORDERED: LORA-741 PO (07:55)
[2016-09-27] MEDS ORDERED: POTA1POW PO (07:55)
[2016-09-27] MEDS ORDERED: HYDR-5688 PO (07:55)
[2016-09-27 07:57] VITALS: BP 136/62; PULSE 70; TEMP 36.4; O2SAT 93
--- NOTE | 2016-09-27 07:58 | Discharge Instructions ---
Discharge Instructions Admission Reason for Admission: Acute On Chronic Diastolic Chf Discharge Discharge Diagnosis / Problem: ACUTE DIASTOLIC HEART FAILURE, LE EDEMA Discharge Goals Goal(s): Diagnostic testing, Therapeutic intervention Activity Recommendations Activity Level: Up Ad Mindy Therapies: Physical Therapy, Occupational Therapy . Additional Information Patient informed of condition: Yes Advance Directives: Yes DNR: Yes Level of Care: Skilled Communicable Disease: No Prognosis: Stable Alonso Catheter: No Instructions / Follow-Up Instructions / Follow-Up 89 F presents with shortness of breath and hypoxia Acute on chronic diastolic CHF (congestive heart failure) nephrology helping to manage Bumex added spironolactone 09/25, TEDS and SCD, dry weight seems to be around 73 KG, Acute./ kidney injury superimposed on CKD improved HTN has been reasonable with holding IVIS I, will hold on discharge Acute on chronic respiratory failure with hypoxemia Improved. baseline oxygen Atrial fibrillation Rate controlled with pacemaker, Warfarin 2mg daily. Her INR has been fluctuating recommend close monitoring as her dose was reduced ( INR 3.3 09/27) DVT prophylaxis warfarin for afib May benefit from lymphedema treatment on discharge Current Hospital Diet Patient's current hospital diet: AHA Diet (Heart Healthy), Low Sodium Diet (2gm Na) Discharge Diet Recommended Diet: Low Sodium Diet (2gm Na) Pending Studies Studies pending at discharge: no Medical Emergencies . Who to Call and When: Medical Emergencies: If at any time you feel your situation is an emergency, please call 911 immediately. . Non-Emergent Contact Non-Emergency issues call your: Primary Care Provider . . "Provider Documentation" section prepared by Haseeb Cassidy. Core Measure Problem Core Measures: None [place] Drug Monitoring Program Search Results: patient reviewed within database
--- NOTE | 2016-09-27 07:59 | Discharge Instructions ---
Discharge Instructions Admission Reason for Admission: Acute On Chronic Diastolic Chf Discharge Discharge Diagnosis / Problem: acute diastolic heart failure Discharge Goals Goal(s): Diagnostic testing, Therapeutic intervention Activity Recommendations Activity Limitations: resume your previous activity . Instructions / Follow-Up Instructions / Follow-Up Call your Primary Care doctor if any of the following symptoms or problems start or get worse: * Shortness of breath or difficulty breathing * Wake up at night short of breath * Chest pain * Cough * Swelling of your hands, feet, or legs * More fatigued or tired with your normal activity * Palpitations - sudden fast heart beats WEIGHT * Weigh yourself every morning after using the bathroom. * Use the same scale. * Wear the same amount of clothing. * Write your weight down on a chart. * Call your Primary Care doctor if you gain more than 2-3 pounds in 1-2 days. MEDICATIONS * Use this discharge instruction sheet for medication instructions. * Take your medications at the time your doctor ordered. * Do not skip a dose of your medicines. * If you miss a dose of medicine, take it as soon as possible, but DO NOT DOUBLE A DOSE. * Read your medicine information when you get home. * Know all of the side effects of your medicine. If in doubt, ask your pharmacist * Call your Primary Care doctor's office if you have any side effects. * Be sure all of your doctors know what medicine and herbs you take (including cold, flu, and herbal medicine). Take the following with you to your follow-up doctor appointments: * Weight Chart * Medication List * List of questions Do not drink excessive alcohol, beer or wine. Current Hospital Diet Patient's current hospital diet: AHA Diet (Heart Healthy), Low Sodium Diet (2gm Na) Discharge Diet Recommended Diet: Low Sodium Diet (2gm Na) Pending Studies Studies pending at discharge: no Medical Emergencies . Who to Call and When: Call 911 or go to the Emergency Room if: * If at any time you feel your situation is an emergency * You have tightness or pain in your chest that does not go away with rest or Nitroglycerin * You are very short of breath even with rest . Non-Emergent Contact Non-Emergency issues call your: Primary Care Provider . . "Provider Documentation" section prepared by Haseeb Cassidy. VTE Core Measure Inpt VTE Proph given/why not?: Warfarin (Coumadin) [place] Drug Monitoring Program Search Results: patient reviewed within database
[2016-09-27 08:05] LABS: BUN/CREATININE RATIO 24.5 (10-20); CALCIUM 8.8 mg/dl (8.5-10.1); CREATININE 1.1 mg/dl (0.60-1.20); POTASSIUM 3.8 mmol/L (3.5-5.1)
[2016-09-27] MEDS: PANTOprazole SOD 40 MG TAB PO SCH (08:17)
[2016-09-27 09:16] VITALS: BP 136/62; PULSE 70; TEMP 36.4; O2SAT 93
--- NOTE | 2016-09-27 18:10 | Discharge Summary ---
Discharge Summary Admission Date: Sep 17, 2016 at 18:38 Discharge Date: Sep 27, 2016 Discharge Disposition: group home facility Principal Diagnosis: acute diastolic heart failure, chronic venous stasis Immunizations: Have You Had Influenza Vaccine: N/A History of Tetanus Vaccine?: Yes History of Pneumococcal: Yes Pneumococcal Date: May 28, 2012 History of Hepatitis B Vaccine: No Consultations: Dr Andrew López, assisted in diuresis Medication Reconciliation New Medications: Spironolactone (Spironolactone) 25 Mg Tab 25 MG PO BID17, #60 TAB Warfarin Sod (Coumadin) 2 Mg Tab 2 MG PO DAILY@16, #30 TAB Changed Medications: Sennosides-Docusate Sodium (Stool Softener) 1 Tab Tab 1 TAB PO DAILY, #30 DOSE (Changed from: UD; Removed Reason) Continued Medications: Bumetanide (Bumex) 2 Mg Tab 1 TAB PO BID for 30 Days, #60 TAB 5 Refills (This prescription has been renewed) Calcium Carbonate-Vitamin D W/ (Caltrate 600 Plus) 1 Tab Tab 1 TABLET PO DAILY, TAB Diclofenac Sodium (Topical) (Voltaren 1% Top Gel) 1 % Gel Unknown Dose TOP QID Gabapentin (Neurontin) 300 Mg Cap 300 MG PO BID, #60 CAP (This prescription has been renewed) Hydrocodone/Acetaminophen 5MG/325MG ([place] 5MG/325MG) Tab 1 TABLET PO Q6H PRN for Pain, #90 TAB (This prescription has been renewed) Lorazepam (Ativan) 0.5 Mg Tab 0.5 MG PO HS PRN for Sleep, #30 TAB (This prescription has been renewed) Multiple Vitamins W/ Minerals (Centrum Silver Adult 50+) 1 Tab Tab 1 TAB PO DAILY Nystatin (Topical) (Nystop) 100,000 Unit/Gm Pow Unknown Dose TOP TID Omeprazole (Prilosec) 20 Mg Cap 20 MG PO BID, #60 DOSE (This prescription has been renewed) Polyethylene Glycol 3350 (Miralax) 1 Pow Pow 17 GM PO DAILY, #255 GM Polyethylene Glycol-Propylene (Systane) 1 Madeline Madeline 1 DROP OPB HS Potassium Chloride Pwd (Klor-Con Pwd) 20 Meq Pack 20 MEQ PO BID, #60 DOSE (This prescription has been renewed) Probiotic Product (Probiotic) 1 Tab Tab 1 TAB PO DAILY Discontinued Medications: Amlodipine/Benazepril (Lotrel 10MG/20MG) 10 Mg/20 Mg Cap 1 CAPSULE PO DAILY, CAP Ferrous Sulfate (Iron) 325 Mg Tab 1 TAB PO DAILY, #30 TAB Simvastatin (Zocor) 5 Mg Tab 5 MG PO QPM, TAB Triamcinolone Acet (Triamcinolone Acetonide) 45 Appln/15 Gm Cr 1 APPLN TOP BID for 30 Days, #30 GM Warfarin Sod (Jantoven) 2 Mg Tab 1 MG PO 6XWK, TAB TAKE 2 MG THURSDAY THROUGH THURSDAY AND ON THURSDAY TAKE 4 MG Warfarin Sod (Jantoven) 2 Mg Tab 4 MG PO DAILY, TAB TAKE 4 MG ON THURSDAY AND 2 MG THURSDAY THROUGH THURSDAY Discharge Exam Review of Systems: Constitutional: No chills, No fever, No sweats Respiratory: No cough, No sputum Cardiovascular: + edema, No PND, No chest pain, No orthopnea Abdomen: No diarrhea, No nausea, No pain, No vomiting Genitourinary - Female: No dysuria, No urinary frequency Physical Exam: General Appearance: WD/WN, + mild distress Neck: supple, no JVD Respiratory/Chest: chest non-tender, lungs clear, normal breath sounds Cardiovascular: regular rate, rhythm, no murmur Abdomen / GI: normal bowel sounds, non tender, soft Extremities: no pedal edema, normal range of motion Neurologic/Psychiatric: alert, oriented x 3 Hospital Course 89 F presents with shortness of breath and hypoxia Acute on chronic diastolic CHF (congestive heart failure) nephrology helping to manage Bumex added spironolactone 2/, TEDS and SCD, added venofer 2, dry weight seems to be around 73 KG Acute./ kidney injury superimposed on CKD improved no change with more diuretics HTN has been reasonable with holding IVIS I, will hold on discharge Acute on chronic respiratory failure with hypoxemia Improved. baseline oxygen Atrial fibrillation Rate controlled with pacemaker, Warfarin 2mg daily. DVT prophylaxis warfarin for afib may benefit from lymphedema treatment if able to arrange Total Time Spent: Greater than 30 minutes This includes examination of the patient, discharge planning, medication reconciliation, and communication with other providers. Discharge Instructions Please refer to the electronic Patient Visit Report (Discharge Instructions) for additional information.
[2017-04-11] MEDS ORDERED: BUME2TAB3 PO (15:39)
[2017-04-11] MEDS ORDERED: POTA10CA28 PO (15:44)
[2017-04-11] MEDS ORDERED: SPIR25TA PO (15:46)
[2017-04-11] MEDS ORDERED: CYAN500T PO (15:48)
[2017-04-30] MEDS ORDERED: CIPR1TAB11 PO (15:23)
[2017-04-30] MEDS ORDERED: DMD20 PO (15:23)
[2017-04-30] MEDS ORDERED: CMD1 PO (15:23)
[2017-04-30] MEDS ORDERED: ULT50X PO (15:23)
[2017-04-30] MEDS ORDERED: ACET-1047 PO (15:23)
[2017-04-30] MEDS ORDERED: LORA-741 PO (15:23)
== END 2016-09-27 10:53 | DRG 291 ==
LOC: ENRESERVDT → ENRESERVTM → C.EDB 14:14 → C.2T 18:38 → EDBEDREQ 18:55 → C.MS4W 09-23 12:47
PROVIDERS: ADMIT Hospitalist; ATTEND Internal Medicine
DX: I13.0 Hypertensive heart and chronic kidney disease with heart failure and stage 1 through stage 4 chronic kidney disease, or unspecified chronic kidney disease (principal); I50.33 Acute on chronic diastolic (congestive) heart failure; J96.21 Acute and chronic respiratory failure with hypoxia; N17.9 Acute kidney failure, unspecified; E87.1 Hypo-osmolality and hyponatremia; I48.1 Persistent atrial fibrillation; I44.2 Atrioventricular block, complete; Z96.659 Presence of unspecified artificial knee joint; Z96.649 Presence of unspecified artificial hip joint; N18.3 Chronic kidney disease, stage 3 (moderate); Z79.01 Long term (current) use of anticoagulants; Z95.0 Presence of cardiac pacemaker; I48.2 Chronic atrial fibrillation; I87.8 Other specified disorders of veins; K21.9 Gastro-esophageal reflux disease without esophagitis; M81.0 Age-related osteoporosis without current pathological fracture; E78.5 Hyperlipidemia, unspecified; Z66 Do not resuscitate; E87.6 Hypokalemia

== ENCOUNTER → 2016-10-16 | Outpatient (CLI) | payer OTHER, BC ==
[~2016-10-16] MED LIST changes: +ACET-1047 PO; -AMLO10CA PO; -CETI10TA84 PO; +CIPR1TAB11 PO; +CMD1 PO; +CMD2 PO; -CYAN1TAB PO; +CYAN500T PO; +DMD20 PO; -FERR1TAB23 PO; -GUAI1TAB69 PO; -KFL500 PO; -POTA-327 PO; +POTA10CA28 PO; +POTA1POW PO; -SIMV5TAB2 PO; +SPIR25TA PO; +SPR25 PO; -TRMCR515 TOP; +ULT50X PO; -WARF2TAB8 PO
[2016-10-16 12:19] LABS: BASO % 0.2 %; BASO ABS # 0.02 K/uL (0-0.2); COMPLETE YES; EOS % 1.7 %; HEMATOCRIT 31.6 % (37-47); IG% 0.2 %; LYMPH % 11.7 %; LYMPH ABS # 1.03 K/uL (1.2-3.4); MEAN CELL VOLUME 92.7 fL (80-100); MEAN CORPUSCULAR HGB CONC 34.5 g/dl (32-36); MEAN PLATELET VOLUME 9.8 fL (7.4-10.4); MONO % 10.2 %; PLATELET COUNT 280 K/uL (130-400); RED BLOOD COUNT 3.41 M/uL (4.2-5.4); WHITE BLOOD COUNT 8.81 K/uL (4.8-10.8)
[2016-10-16 12:50] LABS: BLOOD UREA NITROGEN 56 mg/dl (7-18); CARBON DIOXIDE 25 mmol/L (21-32); CHLORIDE 86 mmol/L (98-107); GLUCOSE 110 mg/dl (70-99); MAGNESIUM 2.1 mg/dl (1.8-2.4); POTASSIUM 4.5 mmol/L (3.5-5.1); SODIUM 124 mmol/L (136-145)
[2016-10-16 12:54] LABS: FERRITIN 292.7 ng/ml (8.0-388.0)
[2016-10-16 19:18] LABS: URINE APPEARANCE CLEAR (CLEAR); URINE BILIRUBIN NEG (NEG); URINE COLOR YELLOW; URINE EPITHELIAL CELL AUTO >30 /lpf (0-5); URINE NITRITE NEG (NEG); URINE PH 6.5 (4.5-7.5); URINE SPECIFIC GRAVITY 1.001 (1.000-1.030); UROBILINOGEN NEG (NEG)
[2016-10-16 19:33] LABS: MANUAL MICROSCOPIC REQUIRED? NO; REVIEW REQ? YES
== END | disposition home or self-care (01) ==
LOC: C.LAB1850 11:20
PROVIDERS: ATTEND Family Medicine
DX: R39.9 Unspecified symptoms and signs involving the genitourinary system (principal); D64.9 Anemia, unspecified; N17.9 Acute kidney failure, unspecified; E87.5 Hyperkalemia